=== PATIENT | male | born 1950 | race Caucasian/White ===

== ENCOUNTER 2017-09-12 15:35 | Emergency (ER) | payer OTHER ==
[~2017-09-12] VITALS: Ht 185.4 cm; Wt 152.9 kg
[~2017-09-12 15:35] MED LIST: ALBUTEROL2.5 MG/31 INH; ASPIR 8181 MG PO; BACTRIM DS TAB1 EACH PO; BRILINTA90 MG PO; CHILDREN'S ASPI81 M1 PO; CLONAZEPAM 0.50.5 M1 PO; COREG3.125 MG PO; COREG6.25 MG PO; COUMADIN 4 MG TA4 M1 PO; FLOMAX0.4 MG PO; HYTRIN 2MG CAPSU2 MG PO; IMDUR 30 MG TAB30 M1 PO; LEVEMIR SUBQ; LIPITOR 20 MG T20 M1 PO; LISINOPRIL2.5 MG PO; METFORMIN HCL1000 M1 PO; NITROGLYCERIN0.4 MG SUBLING; NOVOLOG100 UNIT/1 SUBQ; PAXIL10 MG PO; PEPCID20 MG PO; PERCOCET PO; PROAIR HFA8.5 GM INH; SPIRIVA18 MCG INH; SYMBICORT160 MCG/4. INH; TERAZOSIN HCL5 MG PO; VENLAFAXINE H37.5 MG PO; XARELTO15 MG PO
[2017-09-12 16:31] LABS: ABSOLUTE EOSINOPHILS 0.2 thou/uL (0.0-0.7); ABSOLUTE LYMPHOCYTES 0.9 thou/uL (0.8-5.3); ABSOLUTE MONOCYTES 0.5 thou/uL (0.0-1.2); ABSOLUTE NEUTROPHILS 6.8 thou/uL (1.6-8.1); BASOPHILS 0.4 %; EOSINOPHILS 2.4 %; HEMATOCRIT 40.5 % (42.0-52.0); HEMOGLOBIN 13.3 gm/dL (14.0-18.0); LYMPHOCYTES 11.1 %; MCH 28.2 pg (26.0-34.0); MCHC 32.9 g/dL (28.0-37.0); MCV 85.5 fL (80.0-100.0); MONOCYTES 5.6 %; MPV 8.5 fl. (7.2-11.1); NUCLEATED RBCS 0 /100WBC; PLATELET COUNT* 186 thou/uL (150-400); POLYS 80.5 %; RBC 4.73 mil/uL (4.50-6.00); RDW-CV 15.3 % (10.5-14.5); WBC 8.4 thou/uL (4.0-11.0)
[2017-09-12 16:35] LABS: ANION GAP 11 mmol/L (7-16); BUN 15 mg/dL (7-18); CALCIUM 8.6 mg/dL (8.5-10.1); CHLORIDE 104 mmol/L (98-107); CO2 23 mmol/L (21-32); CREATININE 0.9 mg/dL (0.6-1.3); GLUCOSE 141 mg/dL (70-99); POTASSIUM 3.4 mmol/L (3.5-5.1); SODIUM 138 mmol/L (136-145)
[2017-09-12 16:46] LABS: ALBUMIN 3.3 g/dL (3.4-5.0); ALKALINE PHOSPHATASE 77 U/L (46-116); NT-PRO BRAIN NAT PEPTIDE 159 pg/mL (<300); SGOT 29 U/L (15-37); SGPT 37 U/L (30-65); TOTAL BILIRUBIN 0.5 mg/dL (<0.1-1.0); TOTAL PROTEIN 6.7 g/dL (6.4-8.2); TROPONIN-I LEVEL <0.06 ng/mL (<0.06)
[2017-09-12 17:27] VITALS: BP 107/63
--- NOTE | 2017-09-13 12:47 | EKG ---
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 : 1950 Requested By: Alana Lares Order Number: [id number] MD: Peter Rajan Measurements Intervals [place] Rate: 54 P: 32 TX: 208 QRS: 3 QRSD: 122 T: -3 QT: 517 QTc: 490 Interpretive Statements Sinus rhythm Nonspecific intraventricular conduction delay Inferior infarct, old Compared to ECG 01/17/2017 12:56:16 Intraventricular conduction delay now present Myocardial infarct finding now present First degree AV block no longer present Electronically Signed On 09-13-2017 12:46:55 SNAGGER by Peter Rajan [email or web address] <ELECTRONICALLY SIGNED> By: Peter Rajan MD, FACC 09/13/17 1246 1610 1610 Peter Rajan MD, FAC /EPI
== END 2017-09-12 18:49 | disposition home or self-care (01) ==
LOC: M.ERS 15:35
PROVIDERS: Personal Emergency Response Attendant
DX: E11.649 Type 2 diabetes mellitus with hypoglycemia without coma (principal); F10.99 Alcohol use, unspecified with unspecified alcohol-induced disorder; M19.90 Unspecified osteoarthritis, unspecified site; I25.2 Old myocardial infarction; F41.9 Anxiety disorder, unspecified; F32.9 Major depressive disorder, single episode, unspecified; J44.9 Chronic obstructive pulmonary disease, unspecified; Z88.5 Allergy status to narcotic agent; Z96.652 Presence of left artificial knee joint; Z95.5 Presence of coronary angioplasty implant and graft; Z79.4 Long term (current) use of insulin

== ENCOUNTER 2017-12-12 17:31 | Inpatient (IN) | payer OTHER ==
[2017-12-12] VITALS (9 sets, daily range): BP systolic 130–178; BP diastolic 64–95
[~2017-12-12] VITALS: Ht 188 cm; Wt 165.1 kg
--- NOTE | ~2017-12-12 | EKG ---
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
--- NOTE | ~2017-12-12 | EKG ---
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
--- NOTE | 2017-12-12 17:37 | NUR ---
CODE STEMI CALLED BY DR. RING. SEE CODE STEMI PAPER FLOWSHEET.
[2017-12-12 17:48] LABS: HEMATOCRIT 42.9 % (42.0-52.0); HEMOGLOBIN 14.1 gm/dL (14.0-18.0); MCH 28.3 pg (26.0-34.0); MCHC 32.9 g/dL (28.0-37.0); MCV 85.9 fL (80.0-100.0); MPV 8.5 fl. (7.2-11.1); NUCLEATED RBCS 0 /100WBC; PLATELET COUNT* 173 thou/uL (150-400); RBC 4.99 mil/uL (4.50-6.00); RDW-CV 14.6 % (10.5-14.5); WBC 11.7 thou/uL (4.0-11.0)
[2017-12-12 17:57] LABS: ANION GAP 8 mmol/L (7-16); BUN 20 mg/dL (7-18); CHLORIDE 105 mmol/L (98-107); CO2 29 mmol/L (21-32); CREATININE 1.1 mg/dL (0.6-1.3); GLUCOSE 275 mg/dL (70-99); POTASSIUM 4.1 mmol/L (3.5-5.1); SODIUM 142 mmol/L (136-145)
[2017-12-12 17:59] LABS: APTT 24.3 Seconds (25.0-31.3)
[2017-12-12 18:15] LABS: ALBUMIN 3.6 g/dL (3.4-5.0); ALKALINE PHOSPHATASE 86 U/L (46-116); CK-MB MASS 3.9 ng/mL (<0.5-3.6); LIPASE 169 U/L (73-393); MAGNESIUM 1.7 mg/dL (1.8-2.4); NT-PRO BRAIN NAT PEPTIDE 172 pg/mL (<300); SGOT 20 U/L (15-37); SGPT 38 U/L (30-65); TOTAL BILIRUBIN 0.5 mg/dL (<0.1-1.0); TOTAL PROTEIN 7.3 g/dL (6.4-8.2); TROPONIN-I LEVEL <0.06 ng/mL (<0.06)
[2017-12-12 18:19] LABS: ABSOLUTE LYMPHOCYTES 0.9 thou/uL (0.8-5.3); ABSOLUTE MONOCYTES 0.5 thou/uL (0.0-1.2); ABSOLUTE NEUTROPHILS 10.3 thou/uL (1.6-8.1); ATYPICAL LYMPHS 2 %; PLATELET ESTIMATE ADEQUATE
[2017-12-13] VITALS (12 sets, daily range): BP systolic 96–139; BP diastolic 48–79
--- NOTE | 2017-12-13 03:45 | NUR ---
ASSUMED CARE OF PT FROM OCCUPATIONAL THERAPY ASSISTANT OMAIRA FRAUSTO @ 2034, ARRIVED IN BED, PLACED ON OUTCOMES ANALYST. PT A+O*4, LAYING AT 30 DEG. REINFORCED BLEED PRECAUTIONS, TO MAINTAIN BEDREST x 5HRS. PT ON 4L O2 NC, SPO2 = 97%, USES ACCESSORY MUSCLES, WHEEZES AUDIBLE IN ALL LUNG FILEDS. R GROIN SITE ASSESSED, SOFT, SUPPLE, NO BLEED OR HEMATOMA. PER REPORT, PT HAS ANGIOSEAL D/T LEAKAGE DURING PROCEDURE. HEMATURIA NOTED, PT HAS LUCAS ORDERED TO BE D/C'D IN AM. SKIN DIAPHORETIC, PT STATES HE FEELS HOT, FAN PROVIDED, BG = 278, COVERED W/ SSI 12 UNITS. CONT TO MONITOR.
[2017-12-13 07:13] LABS: HEMATOCRIT 39.7 % (42.0-52.0); HEMOGLOBIN 12.9 gm/dL (14.0-18.0); MCH 28.1 pg (26.0-34.0); MCHC 32.5 g/dL (28.0-37.0); MCV 86.4 fL (80.0-100.0); MPV 8.6 fl. (7.2-11.1); RBC 4.6 mil/uL (4.50-6.00); RDW-CV 14.7 % (10.5-14.5); WBC 16.2 thou/uL (4.0-11.0)
[2017-12-13 07:30] LABS: ALBUMIN 3.1 g/dL (3.4-5.0); ALKALINE PHOSPHATASE 61 U/L (46-116); ANION GAP 8 mmol/L (7-16); BUN 17 mg/dL (7-18); CALCIUM 8.7 mg/dL (8.5-10.1); CHLORIDE 104 mmol/L (98-107); CHOLESTEROL 120 mg/dL (<200); CO2 25 mmol/L (21-32); GLUCOSE 336 mg/dL (70-99); HDL CHOLESTEROL 64 mg/dL (>40); LDL CHOLESTEROL 48 mg/dL (<100); POTASSIUM 4.1 mmol/L (3.5-5.1); SGOT 61 U/L (15-37); SGPT 40 U/L (30-65); SODIUM 137 mmol/L (136-145); TC:HDL 1.9 Ratio (Not establshd); TOTAL BILIRUBIN 0.7 mg/dL (<0.1-1.0); TOTAL PROTEIN 6.6 g/dL (6.4-8.2); TRIGLYCERIDE 44 mg/dL (<150); VLDL 9 mg/dL (<40)
[2017-12-13 07:37] LABS: SERUM ASSESSMENT Clear; TROPONIN-I LEVEL 18.71 ng/mL (<0.06)
[2017-12-13] MEDS ORDERED: PLAVIX 75 MG TA75 M1 PO (07:57)
[2017-12-13] MEDS ORDERED: PRINIVIL5 MG PO (07:57)
--- NOTE | 2017-12-13 10:15 | NUR ---
NO C/O CHEST PAIN. VSS. AFEBRILE. PT ON CARB CONTROLLED DIET. PT MADE TELEMETRY STATUS PER CARDIOLOGY. CARDIOLOGY WOULD LIKE TO MONITOR PT 1 MORE DAY HIGH RISK FOR BLEEDING. METFORMIN HELD PT HAD CATH 12/12. INSULIN ADMININSTERED PER SEP. PT SITTING UP I CHAIR EATING BREAKFAST. CATHETER DC'D.
--- NOTE | 2017-12-13 11:19 | EKG ---
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: : 1950 Requested By: Eliceo Burkett Order Number: [id number] Todd MD: Eliceo Burkett Measurements Intervals [place] Rate: 85 P: 25 [place]: 268 QRS: -13 QRSD: 108 T: -12 QT: 377 QTc: 449 Interpretive Statements Sinus rhythm Prolonged [place] interval Lateral infarct, acute (LAD) Baseline wander in lead(s) V2 Compared to ECG 09/12/2017 16:10:41 First degree AV block now present lateral injury now seen Electronically Signed On 12-13-2017 11:19:42 CDT by Eliceo Burkett [email or web address] <ELECTRONICALLY SIGNED> By: Eliceo Burkett MD, [facility] 12/13/17 1119 1736 1736 Eliceo Burkett MD, [facility] /EPI
--- NOTE | 2017-12-13 11:22 | EKG ---
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: [facility] : 1950 Requested By: Obey Veliz Order Number: [id number] MD: Eliceo Burkett Measurements Intervals [place] Rate: 81 P: 13 [place]: 239 QRS: 64 QRSD: 112 T: 52 QT: 409 QTc: 475 Interpretive Statements Sinus rhythm early transition Prolonged [place] interval Abnormal lateral Q waves Baseline wander in lead(s) I,III,aVL,aVF Electronically Signed On 12-13-2017 11:22:37 CDT by Eliceo Burkett [email or web address] <ELECTRONICALLY SIGNED> By: Eliceo Burkett MD, [facility] 12/13/17 1122 2139 Eliceo Burkett MD, [facility] /EPI
--- NOTE | 2017-12-13 11:23 | EKG ---
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
--- NOTE | 2017-12-13 11:35 | EKG ---
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
--- NOTE | 2017-12-13 13:19 | CARD ---
[address] [address] CARDIAC CATH REPORT Name: FAM MILES Room: [address] IN [facility].#: [id number] Admission: 12/12/17 Attend Phys: Fam Ovalles, Discharge: Date of : [birth year] Report #: [id number] THIS REPORT FOR: //name// APPROVED REPORT Study performed: 12/12/2017 18:09:58 Patient Details Patient Status: ED Room #: The patient is a 67 year-old male Event Personnel Eliceo Burkett Doctor Of Medicine, Cheryl Washington RN, Danielle Baumann RN Monitor, Keaton Antoine Scrub Procedures Performed Art Access - R femoral artery* , Left Heart Catheterization, PTCA with Stenting, PTCA with Balloon Angioplasty Indication Abnormal ECG, STEMI , Chest pain Risk Factors Arterial HypertensionObesity, Hypercholesterolemia, Diabetes Previous Procedures/Diagnoses Previous PCI Admission/Lab Medications/Medications given during procedure Platelet Aff. Inhib., Heparin Unfract., Heparin IV 5000 units Procedure Narrative The patient was brought emergently to the Cardiac Catheterization Laboratory and was prepped and draped in a sterile manner. The right femoral was infiltrated with 2% Lidocaine subcutaneous anesthesia. A 6fr Ultimum sheath was inserted into the right femoral artery. Coronary angiography was performed using coronary diagnostic catheters. The right coronary system was accessed and visualized with a JR4 catheter. The left coronary system was accessed and visualized with a JL4 catheter. The left ventricle was accessed and visualized with a angled PIG catheter. Left ventricular/Aortic Valve gradient assessed via catheter pullback. Left ventriculogram was performed in CONN projection. Closure device was deployed with a 6 Fr Angioseal. The patient tolerated the procedure well and there were no [facility] [address] [place] [address] CARDIAC CATH REPORT Name: FAM MILES Room: [address] IN [facility]#: [id number] Admission: 12/12/17 Attend Phys: Fam Ovalles, Discharge: Date of : 48 Report #: [id number] complications associated with the procedure. There was no hematoma. Intraoperative Conscious Sedation Fentanyl 75 mcg Versed 2 mg Fluoro Time: 10 minutes Dose: DAP [id number] cGycm2 3114 mGy Contrast Type and Amount: Visipaque 280 ml Coronary Angiography The patient's coronary anatomy is right dominant. Diagnostic Cath Left Main 0% stenosis LAD stent in mid lad had only 30% restenosis. Apical lad had a 80% stenosis Diagonal 1 small vessel with a 90% proximal stenosis Diagonal 2 medium sized vessel with a 90% proximal stenosis OM2 distal 90% stenosis before bifurcating Right Coronary proximal stent without restenosis, mid stent with 30% restenosis. Distal stent had thrombus and the pda branch that arose from within the stent was occluded 100% RPLV distal branch had a 70% stenosis Left Ventriculography The left ventricular ejection fraction is estimated to be 35-40%. There is no mitral insufficiency. akinesis noted of the entire apex Hemodynamics The aortic pressure is 140/79 mmHg with a mean of 100 mmHg. The left ventricular pressure is 142/10 mmHg with a mean of mmHg. The left ventricular end diastolic pressure is 20 mmHg. There was no gradient across the aortic valve upon pullback. Pullback from the left ventricle to the aorta revealed no gradient across the aortic valve. PCI Technique Lesion Anticoagulation was achieved with Heparin. iv aggrastat given as a bolus Percutaneous coronary intervention was performed on the second obtuse marginal branch segment. The lesion stenosis prior to intervention was 90% with KEN 3 flow. A 6F XB 4.0 Guide Catheter was used to engage the lm ostium. A IG: BMW 190cm Interventional Guidewire was used [place] [address] CARDIAC CATH REPORT Name: FAM MILES Room: [address]#: [id number] Admission: 12/12/17 Attend Phys: Fam Ovalles, Discharge: Date of : 48 Report #: [id number] BALLOON DILATION A Balloon catheter Trek RX 2.5 X 8 was inserted and inflated up to 8.00atm for 14seconds. Repeat angiography revealed the following post-dilatation results: 50% stenosis. Additional Inflation: 10.00atm for 10seconds. STENT DEPLOYMENT A bare metal stent Vision RX 2.75 X 12 was inserted and inflated up to 10.00atm for 10seconds. Repeat angiography revealed the following post-stent deployment results: 0% stenosis. Additional Inflation: 10.00atm for 10seconds. Final angiography reveals 0 % stenosis with KEN 3 flow. PCI Technique Lesion 2 Percutaneous Coronary Intervention was performed on the right posterior descending artery. Percutaneous coronary intervention was performed on the right posterior descending artery. The lesion stenosis prior to intervention was 100% with KEN 0 flow. A 6FR JCR 4 100CM Guide Catheter was used to engage the rca ostium. A IG: BMW 190cm Interventional Guidewire was used to cross the lesion. Balloon Dilation A Balloon catheter Trek RX 2.5 X 8 was inserted and inflated up to 8.00atm for 16seconds. Repeat angiography revealed the following post-dilatation results: 0% stenosis. Additional Inflation: 10.00atm for 21seconds. Additional Inflation: 16atm for 12seconds. Final angiography reveals 0 % stenosis with KEN 3 flow. Comments Stent was not deployed because stenting would require jailing the SARAH brach, and there was a significant difference in size between the distal rca and the pda branch. However, if restenosis occurs, a T-stent could be deployed. Thrombus noted in stent had resolved at end of procedure. Conclusion 1. No restenosis of the stent in the mid lad 2. 90% stenosis of the 2nd marginal branch of the circumflex 3. occluded PDA branch of the rca that arose from within the distal stent in the rca 4. successful placement of single bare metal stent in the 2nd [place] [address] CARDIAC CATH REPORT Name: FAM MILES Room: [address] IN [facility].#: [id number] Admission: 12/12/17 Attend Phys: Fam Ovalles, Discharge: Date of : 48 Report #: [id number] 5. successful ptca the the pda branch of the rca 6. moderate LV systolic dysfunction Recommendations Cardiac Rehabilitation Referral Aggressive Medical Therapy Medications Administered Clopidogrel <ELECTRONICALLY SIGNED> By: Eliceo Burkett MD, FACC 12/13/17 1319 1319 1319Eliceo Burkett MD, FACC /INF
--- NOTE | 2017-12-13 16:21 | NUR ---
PT VOIDING PER URINAL PT'S VOIDED 600. NO CHEST PAIN. MEDICATIONS ADMININSTERED PER SEP. BLOOD SUGAR 450'S IN AFTERNOON. DR NOTIFIED ASKED TO START PT ON SLIDING SCALE HOLDING METFORMIN. RECIEVED ORDER FOR MODERATE DOSE SLIDING SCALE.
[2017-12-14 00:07] VITALS: BP 108/47
--- NOTE | 2017-12-14 02:32 | NUR ---
ASSUMED CARE OF PT FROM TAD CASTANO; PT A+O*4, ON 2L NC, AMBULATING IN ROOM, AX1. NON-PRODUCTIVE COUGH NOTED, WHEEZES IN R AND LEFT UPPER REDDY. PT VOIDS PER URINAL. CONTROLLED AFIB, RATE 73-75 ON THE MONITOR.
[2017-12-14 04:00] VITALS: BP 98/41
--- NOTE | 2017-12-14 05:00 | NUR ---
PT TRANSFERED FROM ICU. 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 SR/1ST DEGREE. PT UP AD RAMONE WITH STEADY GAIT. O2 2L NC. R GROIN CATH SITE C/D/I. CALL LIGHT IN REACH. BED IN LOWEST POSITION. PROGRESSING TOWARDS GOALS.
[2017-12-14 12:00] VITALS: BP 119/68
[2017-12-14] MEDS ORDERED: ALDACTONE25 MG PO (12:22)
--- NOTE | 2017-12-14 13:53 | NUR ---
ORDER RECEIVD TO DISHCARGE PATIENT HOME TO SELF CARE. PAITNET UTILIZING HOME O2 PRIOR TO ADMISSION AND WILL CONTINUE SUPPLEMENTAL O2 AT HOME. MED REC, MEDICATION EDUCATION, STROKE EDUCATION, AND NEED FOR FOLLOW UP APPOINTMENTS COVERED AD STATED UNDERSTOOD BY PATIENT. PATIENT EDUCATED ON NEED TO REFRAIN FROM LIFTING OVER 10 POUBDS FOR 1 WEEK OR UNTIL CLEARED BY CARDIOLOGY UPON FOLLOW UP APPOINTMENT ON DECEMBER 19. IV AND TELEMETRY PACK REMOVED AND PATIENT GIVEN ADEQUATE TIME TO HAVE ALL ANSWERS AND CONCERNS ADRESSED. PATIENT TAKEN TO AWAITNG CAR WITH DAUGHTER PRESENT, PATIET TAKEN VIA WHEELCHAIR. DISCHARGE TIME OF 13:45.
--- NOTE | 2017-12-14 16:18 | CON ---
[address] [address] CONSULTATION Name: FAM MILES Room: [address] IN .R.#: [id number] Admission: 12/12/17 Attend Phys: Fam Ovalles, Discharge: 12/14/17 Date of : [birth year] Report #: [id number] THIS REPORT FOR: //name// CC: Lisa Ovalles DATE OF SERVICE: 12/12/2017 TYPE OF REPORT: Cardiology consultation. HISTORY OF PRESENT ILLNESS: The patient is a 67-year-old single white male who I was asked to see in the Emergency Room after he complained of chest pain. The patient has an extensive past medical history. He is morbidly obese, standing 6 feet 2 inches and weighing 360 pounds. He has a long history of diabetes, hypertension and hyperlipidemia. He had had a previous coronary intervention of the right coronary artery in 2012. It appears this was done at another institution. The patient was treated medically at that time. He then presented in September of [address] Allen placed a drug-eluting stent, had 90% stenosis in the right coronary artery. He presented with a STEMI at that time. The patient was placed on Brilinta. I performed another cardiac catheterization in October 2016 when he presented to the Emergency Room complaining of chest pain. He had stopped taking his aspirin and Plavix for knee surgery. He was having inferior STEMI again. I performed another cardiac catheterization in October 2016 that showed an ejection fraction of 45%. The stent in the proximal right coronary artery had 80% eccentric stenosis and there was an 80% stenosis in the stent in the distal right coronary artery. He had a new drug-eluting stent placed in the proximal and distal right coronary artery. The patient has done well since that time. Recently, he has been short of breath. He has been seen by fish packer at [facility]. Apparently, he had an abnormal CT scan. He was taken off of his aspirin and Plavix. He has been off for several days. Today, he underwent a bronchoscopy apparently at [facility]. It is unclear whether he had a biopsy or not. This evening, the patient again complained of chest pain. He felt diaphoretic. The pain persisted. A friend brought him to the Emergency Room here. He was found to be having a little acute lateral STEMI. Emergent Cardiology consultation was requested. When I arrived, the patient continued to have chest pain. He is not very active because of his large size. He has had no recent syncope or fever. PAST MEDICAL HISTORY: Significant for 2 knee surgeries. He has a long history of diabetes, hypertension and hyperlipidemia. MEDICATIONS: His medications, which he had taken today on admission consisted of metformin, insulin, clonazepam, albuterol nebulizer, Symbicort, Hytrin, carvedilol, aspirin, lisinopril and atorvastatin. ALLERGIES: He has intolerance to [place]INE [place] [address] CONSULTATION Name: FAM MILES Room: [address] IN [facility].#: [id number] Admission: 12/12/17 Attend Phys: Fam Ovalles, Discharge: 12/14/17 Date of : 48 Report #: [id number] FAMILY HISTORY: Significant for heart disease. SOCIAL HISTORY: He has been , lives in [place]. 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 Quit smoking years ago. No alcohol abuse. REVIEW OF SYSTEMS: He denies history of stroke, snoring, liver disease, bleeding, kidney disease, cancer or psychiatric illness. PHYSICAL EXAMINATION: GENERAL: Revealed an obese middle-aged male, appeared in mild distress secondary to pain. VITAL SIGNS: He had a blood pressure 160/80, pulse 80 and his respirations were mildly labored. HEENT: He is anicteric. Conjunctivae pink. Mucous members moist. NECK: Veins are difficult to assess due to obesity. CHEST: Revealed expiratory wheezes. CARDIOVASCULAR: Regular rate and rhythm. ABDOMEN: Obese. EXTREMITIES: Had no pitting edema. Posterior tibial pulse 2+ bilaterally. SKIN: Cool and dry. RADIOLOGICAL DATA: His ECG on admission showed a sinus rhythm; ST-segment elevation of up to 2.5 mm in I and aVL; reciprocal ST-segment depression in II, III and aVF as well as V1, V2 and V3. His workup in the Emergency Room today, he had a portable chest x-ray, which showed cardiomegaly and clear lung piedra. LABORATORY DATA: Lab work today, sodium 142, creatinine 1.1 and glucose 275. Liver function studies were normal. His troponin 0.06. BNP 172. His white blood cell count 11.7 and hemoglobin 14.7. IMPRESSION AND RECOMMENDATIONS: 1. Acute high lateral DK-axxbksb-thpordwfm myocardial infarction. Recommend urgent cardiac catheterization. The patient did stop his aspirin several days ago. 2. Coronary artery disease. The patient has had multiple stents. 3. Cardiomyopathy. The patient has been on a beta nia and angiotensin-converting enzyme inhibitor. I would consider adding Aldactone. 4. Diabetes. 5. Hyperlipidemia. The patient is on a statin drug. 6. Morbid obesity. 7. Abnormal CT scan. The patient apparently had a lung biopsy today. He will be at risk for bleeding. 8. Chronic obstructive pulmonary disease. The patient no longer smokes. [address] [address] CONSULTATION Name: FAM MILES Room: [address] IN M.R.#: [id number] Admission: 12/12/17 Attend Phys: Fam Ovalles, Discharge: 12/14/17 Date of : 48 Report #: [id number] Total time was from 7:15 p.m.-8:30 p.m. <ELECTRONICALLY SIGNED> By: Eliceo Burkett MD, FACC 12/14/17 1618 16 0128Dasherron Burkett MD, FACKerry /nt
== END 2017-12-14 14:02 | disposition home or self-care (01) | DRG 249 ==
LOC: M.ERS 17:31 → M.CL 17:31 → M.ICU 19:53 → M.TBA-ER 19:53 → M.ICU 20:35 → M.2W 12-14 02:13
PROVIDERS: Family Medicine; Internal Medicine Cardiovascular Disease; ADMIT Family Medicine
DX: I21.09 ST elevation (STEMI) myocardial infarction involving other coronary artery of anterior wall (principal); I42.9 Cardiomyopathy, unspecified; Z68.42 Body mass index [BMI] 45.0-49.9, adult; I50.32 Chronic diastolic (congestive) heart failure; E11.9 Type 2 diabetes mellitus without complications; M19.90 Unspecified osteoarthritis, unspecified site; E66.01 Morbid (severe) obesity due to excess calories; E78.00 Pure hypercholesterolemia, unspecified; I25.2 Old myocardial infarction; I10 Essential (primary) hypertension; E78.5 Hyperlipidemia, unspecified; F41.9 Anxiety disorder, unspecified; F32.9 Major depressive disorder, single episode, unspecified; J44.9 Chronic obstructive pulmonary disease, unspecified; I25.10 Atherosclerotic heart disease of native coronary artery without angina pectoris; Z96.652 Presence of left artificial knee joint; Z88.6 Allergy status to analgesic agent; Z79.82 Long term (current) use of aspirin; Z79.4 Long term (current) use of insulin; Z79.899 Other long term (current) drug therapy; Z95.5 Presence of coronary angioplasty implant and graft; Z98.890 Other specified postprocedural states; Z87.891 Personal history of nicotine dependence; Z82.49 Family history of ischemic heart disease and other diseases of the circulatory system

== ENCOUNTER 2017-12-15 12:50 | Inpatient (IN) | payer OTHER ==
[~2017-12-15] VITALS: Ht 188 cm; Wt 162.8 kg
[~2017-12-15 12:50] MED LIST changes: +ALDACTONE25 MG PO; +PLAVIX 75 MG TA75 M1 PO; +PRINIVIL5 MG PO
[2017-12-15 12:51] VITALS: BP 145/91
[2017-12-15 13:10] LABS: ABSOLUTE BASOPHILS 0.1 thou/uL (0.0-0.2); ABSOLUTE EOSINOPHILS 0.1 thou/uL (0.0-0.7); ABSOLUTE MONOCYTES 0.7 thou/uL (0.0-1.2); ABSOLUTE NEUTROPHILS 8.7 thou/uL (1.6-8.1); BASOPHILS 0.6 %; EOSINOPHILS 1.4 %; HEMATOCRIT 38.5 % (42.0-52.0); HEMOGLOBIN 12.8 gm/dL (14.0-18.0); LYMPHOCYTES 9.7 %; MCH 28.7 pg (26.0-34.0); MCHC 33.3 g/dL (28.0-37.0); MCV 86.3 fL (80.0-100.0); MONOCYTES 6.9 %; MPV 8.5 fl. (7.2-11.1); NUCLEATED RBCS 0 /100WBC; PLATELET COUNT* 162 thou/uL (150-400); POLYS 81.4 %; RBC 4.46 mil/uL (4.50-6.00); RDW-CV 14.6 % (10.5-14.5); WBC 10.7 thou/uL (4.0-11.0)
[2017-12-15 13:19] LABS: PROTIME 10.2 Seconds (9.20-11.50)
[2017-12-15 13:25] LABS: CALCIUM 8.7 mg/dL (8.5-10.1); POTASSIUM 3.8 mmol/L (3.5-5.1)
[2017-12-15 13:30] LABS: ALBUMIN 3.1 g/dL (3.4-5.0); TOTAL BILIRUBIN 0.9 mg/dL (<0.1-1.0); TOTAL PROTEIN 6.6 g/dL (6.4-8.2)
[2017-12-15 13:35] LABS: TROPONIN-I LEVEL 3.06 ng/mL (<0.06)
--- NOTE | 2017-12-15 15:30 | EKG ---
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 : 1950 Requested By: Braden Birch Order Number: [id number] MD: Gregory Allen Measurements Intervals [place] Rate: 85 P: 51 RI: 227 QRS: -15 QRSD: 104 T: -28 QT: 376 QTc: 447 Interpretive Statements Sinus rhythm Prolonged [place] interval Inferior infarct, age indeterminate Baseline wander in lead(s) V2,V4,V6 Compared to ECG 12/13/2017 07:57:51 No significant changes Electronically Signed On 12-15-2017 15:29:52 CDT by Gregory Allen [email or web address] <ELECTRONICALLY SIGNED> By: Gregory Allen MD, [facility] 12/15/17 1529 1254 1254 Gregory Allen MD, [facility] /EPI
[2017-12-15 17:02] VITALS: BP 105/59
[2017-12-15 17:20] VITALS: BP 130/73
--- NOTE | 2017-12-15 18:17 | 2DMMODE ---
[place] [address] 2 D/M-MODE ECHOCARDIOGRAM Name: CINTHYA MILES Room: [address] IN [facility]#: [id number] Admission: 12/15/17 Attend Phys: Keaton Benson, Discharge: Date of : 48 Date of Service: 12/15/17 1817 Report #: [id number] THIS REPORT FOR: //name// APPROVED REPORT Study performed: 12/15/2017 16:24:50 EXAM: Comprehensive 2D, Doppler, and color-flow Echocardiogram Patient Location: In-Patient Room #: er Status: routine BSA: 2.79 HR: 76 bpm BP: 106/52 mmHg Rhythm: NSR Other Information Study Quality: Good Indications Chest Pain Post [place] Echo Enhancing Agent Indication: Endocardial border delineation Agent(s) / Amount(s) Used: Optison 3 cc 2D Dimensions LVEF(%): 63.76 (>50%) IVSd: 12.53 (7-11mm) LVOT Diam: 24.91 (18-24mm) LVDd: 59.18 mm PWd: 10.88 (7-11mm) Ascending Ao: 35.40 (22-36mm) LVDs: 38.32 (25-40mm) Aortic Root: 37.57 mm Fletcher's LVEF: 63.76 % Volumes Left Atrial Volume (Systole) LA ESV Index: 36.60 mL/m2 Aortic Valve AoV Peak Nigel.: 1.67 m/s AO Peak Gr.: 11.22 mmHg LVOT Max P.00 mmHg AO Mean Gr.: 6.60 mmHg LVOT Mean P.02 mmHg LVOT Max V: 1.12 m/[place] [address] 2 D/M-MODE ECHOCARDIOGRAM Name: CINTHYA MILES Room: [address] IN M.R.#: [id number] Admission: 12/15/17 Attend Phys: Keaton Benson, Discharge: Date of : 48 Date of Service: 12/15/17 1817 Report #: [id number] AO V2 VTI: 31.27 cm LVOT Mean V: 0.82 m/s SRIKANTH (VTI): 3.35 cm2 LVOT V1 VTI: 21.53 cm Mitral Valve E/A Ratio: 0.93 MV Decel. Time: 273.50 ms MV E Max Nigel.: 0.65 m/s MV PHT: 79.31 ms MVA (PHT): 2.77 cm2 TDI E/Lateral E': 5.00 E/Medial E': 5.00 Medial E' Nigel.: 0.13 m/s Lateral E' Nigel.: 0.13 m/s Pulmonary Valve PV Peak Nigel.: 1.29 m/s PV Peak Gr.: 6.68 mmHg Tricuspid Valve TR Peak Gr.: 26.86 mmHg RVSP: 31.00 mmHg Left Ventricle The left ventricle is normal size. There is normal LV segmental wall motion. There is normal left ventricular wall thickness. Left ventricular systolic function is normal. LVEF is 60-65%. The left ventricular diastolic function is normal. Right Ventricle The right ventricle is normal size. The right ventricular systolic function is normal. Atria Left atrium is mildly dilated. The right atrium size is normal. Aortic Valve The aortic valve is normal in structure. No aortic regurgitation is present. There is no aortic valvular stenosis. Mitral Valve The mitral valve is normal in structure. Trace mitral regurgitation. No evidence of mitral valve stenosis. Tricuspid Valve The tricuspid valve is normal in structure. Mild tricuspid regurgitation. The RVSP is 30-[place] [address] 2 D/M-MODE ECHOCARDIOGRAM Name: CINTHYA MILES Room: [address] IN ..#: [id number] Admission: 12/15/17 Attend Phys: Keaton Benson, Discharge: Date of : 48 Date of Service: 12/15/17 1817 Report #: [id number] Pulmonic Valve The pulmonary valve is normal in structure. There is no pulmonic valvular regurgitation. Great Vessels The aortic root is normal in size. IVC is normal in size and collapses with >50% inspiration Pericardium There is no pericardial effusion. <Conclusion> The left ventricle is normal size. There is normal left ventricular wall thickness. Left ventricular systolic function is normal. LVEF is 60-65%. The left ventricular diastolic function is normal. Left atrium is mildly dilated. Trace mitral regurgitation. Mild tricuspid regurgitation. The RVSP is 30-35 mmHg. There is no pericardial effusion. <ELECTRONICALLY SIGNED> By: Peter Rajan MD, FACC 12/15/171816 16 16 Peter Rajan MD, FACC /INF
[2017-12-15 19:45] VITALS: BP 118/66
[2017-12-16] VITALS: BP 138/78
[2017-12-16 05:51] LABS: HEMATOCRIT 39.2 % (42.0-52.0); HEMOGLOBIN 12.9 gm/dL (14.0-18.0); MCHC 32.9 g/dL (28.0-37.0); MCV 84.9 fL (80.0-100.0); MPV 8.7 fl. (7.2-11.1); RBC 4.61 mil/uL (4.50-6.00); RDW-CV 14.4 % (10.5-14.5); WBC 9.4 thou/uL (4.0-11.0)
[2017-12-16 06:11] LABS: CALCIUM 8.8 mg/dL (8.5-10.1); MAGNESIUM 2.2 mg/dL (1.8-2.4); TOTAL BILIRUBIN 0.8 mg/dL (<0.1-1.0); TOTAL PROTEIN 6.2 g/dL (6.4-8.2)
[2017-12-16 06:17] LABS: POTASSIUM 4.8 mmol/L (3.5-5.1)
[2017-12-16 08:12] VITALS: BP 140/85
[2017-12-16 11:30] VITALS: BP 140/82
--- NOTE | 2017-12-16 13:56 | EKG ---
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[place] : 1950 Requested By: Braden Birch Order Number: [id number] MD: Gregory Allen Measurements Intervals Lane Rate: 78 P: 45 WY: 213 QRS: -26 QRSD: 107 T: -27 QT: 408 QTc: 465 Interpretive Statements Sinus rhythm Ventricular premature complex Borderline prolonged [place] interval Inferior infarct, age indeterminate Compared to ECG 12/15/2017 12:54:06 Ventricular premature complex(es) now present Myocardial infarct finding still present Electronically Signed On 12-16-2017 13:56:07 CDT by Gregory Allen [email or web address] <ELECTRONICALLY SIGNED> By: Gregory Allen MD, [facility] 12/16/17 1356 1534 1534 Gregory Allen MD, [facility] /EPI
--- NOTE | 2017-12-16 17:07 | CON ---
[address] [address] CONSULTATION Name: JDCINTHYA Hallie Room: [address] IN .R.#: [id number] Admission: 12/15/17 Attend Phys: Keaton Benson MD Discharge: Date of : 48 Report #: [id number] THIS REPORT FOR: //name// CC: Estelle Rajan TYPE OF REPORT: Cardiology consultation. INDICATION: Chest pain. HISTORY OF PRESENT ILLNESS: The patient is a 67-year-old gentleman who was just hospitalized last Friday with ST-elevation myocardial infarction. At that time, he is found to have thrombus formation and a stent to the right coronary artery for which he underwent intervention. In this setting, he also had intervention with stent placement to the [id number] circumflex/obtuse marginal system. The patient was discharged uneventfully over the weekend. He returns with chest discomfort that is not quite the same as the pain he had with his acute PA. There is similar location and it does radiate down the left arm but has been continuous and not associated with exertion. The patient has a troponin of 3.0 at this point in time. Peak troponin during hospitalization was approximately . He is without other cardiac complaint at this time. PAST MEDICAL HISTORY: 1. Coronary artery disease. 2. COPD. 3. Diabetes. 4. Hypertension. 5. Hyperlipidemia. 6. Ischemic cardiomyopathy. 7. Coronary stenting with percutaneous coronary intervention x 3. PAST SURGICAL HISTORY: 1. Carpal tunnel release. 2. Total knee arthroplasty. ALLERGIES: CODEINE and MORPHINE. HOME MEDICATIONS: AccuNeb q. 6 hours p.r.n., ProAir 2 puffs as directed, aspirin 81 mg daily, atorvastatin 40 mg at bedtime, Symbicort 160/4.5 b.i.d., carvedilol 6.25 b.i.d., clonazepam 0.5 mg b.i.d., Plavix 75 mg daily, NovoLog 24 units subcutaneously with dinner, Levemir 75 units subcutaneously at bedtime, lisinopril 5 mg daily, metformin 1000 mg b.i.d., Nitrostat p.r.n., Aldactone 25 mg daily, terazosin 5 mg b.i.d., Spiriva HandiHaler 1 capsule daily and Effexor 37.[place] [address] CONSULTATION Name: CINTHYA MILES Room: [address]#: [id number] Admission: 12/15/17 Attend Phys: Keaton Benson MD Discharge: Date of : 48 Report #: [id number] SOCIAL HISTORY: The patient quit smoking remotely. He does not drink alcohol. FAMILY HISTORY: Noncontributory. REVIEW OF SYSTEMS: As per HPI. PHYSICAL EXAMINATION: VITAL SIGNS: Blood pressure 106/52 and pulse 73 and regular. GENERAL: This is a morbidly obese white male, in no distress. Mood and affect appropriate. HEENT: The patient is wearing glasses. Extraocular muscles intact. Mucous membranes are moist. NECK: Shows a thick neck without obvious jugular venous distention. CHEST: Reveals diminished breath sounds with expiratory wheezes throughout. CARDIAC: Reveals a distant S1 and S2. I do not appreciate gallop, murmur or rub. ABDOMEN: Reveals normal bowel sounds. EXTREMITIES: Show 1+ ankles to mid tibial edema bilaterally. RADIOLOGICAL DATA: Chest x-ray shows left basilar infiltrate. LABORATORY DATA: CMP is significant only for a glucose of 197. Troponin currently 3.06. White blood cell count 10.7, hemoglobin 12.8 and platelet count 162,000. IMPRESSION AND RECOMMENDATIONS: 1. Chest discomfort, somewhat different from the pain he had several days ago with his ST-elevation myocardial infarction. This could be Crystal syndrome. I recommend the echocardiogram at this time for further evaluation. 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 His EKG shows sinus rhythm with some nonspecific T-wave inversion, but no ST-segment changes. 2. Recent ST-elevation myocardial infarction. Continue dual antiplatelet therapy. 3. Hypertension. Blood pressure adequately controlled. 4. Hyperlipidemia. Continue atorvastatin 40 mg daily. 5. Type 2 diabetes mellitus per primary physician. 6. Chronic obstructive pulmonary disease exacerbation per primary physician. 7. Post-myocardial infarction pain. We will obtain echocardiogram to further evaluate. <ELECTRONICALLY SIGNED> By: Peter Rajan MD, FACC 12/16/17 1707 1633 0023Peter Rajan MD, FACC /nt
[2017-12-16 17:24] VITALS: BP 133/79
[2017-12-16 19:30] VITALS: BP 119/74
[2017-12-17] VITALS: BP 114/69
[2017-12-17 04:00] VITALS: BP 120/63
[2017-12-17 05:32] LABS: HEMATOCRIT 37.4 % (42.0-52.0); HEMOGLOBIN 12.4 gm/dL (14.0-18.0); MCH 28.1 pg (26.0-34.0); MCHC 33.2 g/dL (28.0-37.0); MCV 84.5 fL (80.0-100.0); MPV 9.1 fl. (7.2-11.1); RBC 4.43 mil/uL (4.50-6.00); RDW-CV 14.2 % (10.5-14.5); WBC 13.2 thou/uL (4.0-11.0)
[2017-12-17 06:08] LABS: CALCIUM 8.9 mg/dL (8.5-10.1); MAGNESIUM 2.4 mg/dL (1.8-2.4); POTASSIUM 4.6 mmol/L (3.5-5.1)
[2017-12-17 08:10] VITALS: BP 133/78
[2017-12-17 12:03] VITALS: BP 146/84
[2017-12-17 16:06] VITALS: BP 137/66
[2017-12-17 20:00] VITALS: BP 132/70
[2017-12-18] VITALS (7 sets, daily range): BP systolic 139–145; BP diastolic 75–89
[2017-12-18] MEDS ORDERED: AZITHROMYCIN 2250 MG PO (08:36)
[2017-12-18] MEDS ORDERED: PREDNISONE 10 M10 M1 PO (08:36)
[2017-12-18] MEDS ORDERED: CEFDINIR300 MG PO (08:36)
[2017-12-18] MEDS ORDERED: CHEST CONGESTI400 MG PO (08:36)
--- NOTE | 2017-12-18 10:54 | CON ---
[address] [address] CONSULTATION Name: CINTHYA MILES Room: [address] IN .R.#: [id number] Admission: 12/15/17 Attend Phys: Keaton Benson MD Discharge: Date of : 48 Report #: [id number] THIS REPORT FOR: //name// CC: Estelle Rajan DATE OF SERVICE: 12/17/2017 REQUESTING PHYSICIAN: Keaton Benson MD REASON FOR CONSULTATION: COPD exacerbation, abnormal CAT scan. DISCUSSION: The patient is a 67-year-old man with a history of underlying coronary artery disease and COPD. He is a former smoker, quitting greater than 20 years ago. He was admitted after presenting to the Emergency Department several days ago. He was having chest pain and shortness of breath. He had just been in the hospital here on 12/12/2017 for a STEMI and underwent cardiac catheterization and had stent placement done. He was then discharged on 12/14/2017. Then, readmitted on 12/15/2017. X-ray was unremarkable other than showing cardiomegaly with some infiltrate in the left base. He had a CT scan done without contrast. This confirmed nodular densities seen primarily in the left lower lung field. History is remarkable that he underwent a bronchoscopy on 12/12/2017 at [facility]. He has been evaluated by the Pulmonary Service there. He notes he has had several CT scans done. It does not sound like he has had a PET scan. Apparently I was concerned he could have cancer. He did undergo bronchoscopy as noted. He is quite upset that he has not heard any results from that, but I do note that was done on 12/12/2017. Unknown if he had a regular bronchoscopy or perhaps a navigational bronchoscopy. The evening of 12/12/2017, he did present to the ED here then with the chest pain and the STEMI. Had the stent placed as noted. He already has a history of coronary artery disease and has had stents placed in the past. He is not steroid dependent for his COPD. He does have O2 at home. He sleeps with that and uses it "p.r.n" during the day. He has a nebulizer at home as well as an albuterol inhaler, which he does on an as needed basis. He does Spiriva daily and he also has Symbicort. He has had recurrent episodes of pneumonia in the past. Some of them have put him in the hospital previously. He has also had bronchitis. He denies ever having a sleep study done, but notes his physicians [place] [address] CONSULTATION Name: CINTHYA MILES Room: [address] IN M.R.#: [id number] Admission: 12/15/17 Attend Phys: Keaton Benson MD Discharge: Date of : 48 Report #: [id number] past, but no study has been done. PAST MEDICAL HISTORY: Remarkable for coronary artery disease. He has had other interventions in the past dating back at least 4-5 years. He has history of morbid obesity, has had prior episodes of pneumonia, history of diabetes. PAST SURGICAL HISTORY: He has had knee surgeries, carpal tunnel repair. HOME MEDICATIONS: At the time he was admitted here were Plavix, Prinivil, Coreg, aspirin, metformin, insulin, Lipitor, venlafaxine, clonazepam, p.r.n. nitroglycerin, Spiriva, Symbicort and albuterol, terazosin, spironolactone. SOCIAL HISTORY: He notes he is a . He is retired. FAMILY HISTORY: Positive for heart disease. REVIEW OF SYSTEMS: ROS was done. Note positives above. Denies having any hemoptysis. Chest pain he had when he came in is now resolved. Denies any difficulty swallowing. Unknown if he snores. Does not always feel rested in the morning when he gets up. Occasionally, he has had some mild lower extremity edema. No recent fevers, chills or sweats. PHYSICAL EXAMINATION: GENERAL APPEARANCE: Morbidly obese man. Sitting up over the edge of the bed. He is eating his lunch. He is alert, cooperative. He is in no acute distress. Able to speak in full sentences. HEENT: Head is normocephalic. Sclerae are nonicteric. Mucous membranes are moist. NECK: Large, supple, without adenopathy. HEART: Tones are little distant, but are regular. No S3 is appreciated. LUNGS: Show breath sounds to be mildly diminished. He has prolonged expiratory phase. Expiratory wheezes are heard. No dullness to percussion. No E to A changes. No pleural rubs. ABDOMEN: Obese, but soft. EXTREMITIES: He has no clubbing. Lower extremities do reveal some trace pretibial edema. SKIN: Warm and dry. NEUROLOGIC: He is alert and oriented x 3. LABORATORY AND X-RAY FINDINGS: CT chest was reviewed. He did have scans done of his abdomen last year, so he can do comparison of the bases. He does have some infiltrate with nodular changes seen, left lower lobe up to 2 cm. No pleural effusions. Some of the nodules are pleural based. Echocardiogram done this admission revealed a normal LV with EF of 60-65%. RV was normal. Troponins on admission were elevated. His BUN and creatinine are normal. [place] [address] [place] [address] CONSULTATION Name: CINTHYA MILES Hallie Room: [address] IN [facility].#: [id number] Admission: 12/15/17 Attend Phys: Keaton Benson MD Discharge: Date of : 48 Report #: [id number] blood cell count this morning 13,200, hemoglobin 12.4, hematocrit 37.4. IMPRESSION: 1. Chronic obstructive pulmonary disease exacerbation. He is actively bronchospastic. Nodular infiltrate, left lower lobe. He is already being evaluated at [facility] for this. He had bronchoscopy done 12/12/2017. Results unknown. Also not clear exactly what testing he may have had there. 2. Morbid obesity, may have unrecognized sleep apnea, 3. Coronary artery disease. Recent ST elevation myocardial infarction with stent placement on 12/12/2017. He is now on dual antiplatelet therapy. 4. Diabetes mellitus, blood sugars elevated due to steroid use. RECOMMENDATIONS: 1. Continue with the bronchodilator regimens. Have adjusted them to also match what he does at home. 2. Continue IV steroids. 3. Records have been requested from [place] for review. However, I do not think would record changer tester doing at this time. If the bronchoscopy was nondiagnostic, given the fact he has had a recent myocardial infarction and stent placed, probably would not be safe to come off his anticoagulation therapy for repeat testing. 4. Consider sleep study in the future. <ELECTRONICALLY SIGNED> By: Deyanira Uriostegui MD 12/18/17 1054 1409 2230Juliana Rincon MD /nt
[2017-12-18] MEDS ORDERED: ALDACTONE50 MG PO (12:57)
== END 2017-12-18 15:15 | disposition home or self-care (01) | DRG 190 ==
LOC: M.ERS 12:50 → M.TBA-ER 16:00 → M.2W 16:00
PROVIDERS: Emergency Medicine; ADMIT Internal Medicine
DX: J44.1 Chronic obstructive pulmonary disease with (acute) exacerbation (principal); J15.9 Unspecified bacterial pneumonia; I50.42 Chronic combined systolic (congestive) and diastolic (congestive) heart failure; Z68.42 Body mass index [BMI] 45.0-49.9, adult; J44.0 Chronic obstructive pulmonary disease with (acute) lower respiratory infection; E11.9 Type 2 diabetes mellitus without complications; F32.9 Major depressive disorder, single episode, unspecified; E66.01 Morbid (severe) obesity due to excess calories; T38.0X5A Adverse effect of glucocorticoids and synthetic analogues, initial encounter; F41.9 Anxiety disorder, unspecified; E78.5 Hyperlipidemia, unspecified; I25.10 Atherosclerotic heart disease of native coronary artery without angina pectoris; I11.0 Hypertensive heart disease with heart failure; I25.5 Ischemic cardiomyopathy; Z96.652 Presence of left artificial knee joint; K21.9 Gastro-esophageal reflux disease without esophagitis; R91.1 Solitary pulmonary nodule; Z79.84 Long term (current) use of oral hypoglycemic drugs; Z79.4 Long term (current) use of insulin; Z79.899 Other long term (current) drug therapy; Z88.5 Allergy status to narcotic agent; Z95.5 Presence of coronary angioplasty implant and graft; Z82.49 Family history of ischemic heart disease and other diseases of the circulatory system; Z87.891 Personal history of nicotine dependence; Y92.89 Other specified places as the place of occurrence of the external cause

== ENCOUNTER 2018-04-02 12:34 | Emergency (ER) | payer OTHER ==
[~2018-04-02] VITALS: Ht 188 cm; Wt 161.0 kg
[~2018-04-02 12:34] MED LIST changes: +ALDACTONE50 MG PO; +AZITHROMYCIN 2250 MG PO; +CEFDINIR300 MG PO; +CHEST CONGESTI400 MG PO; +PREDNISONE 10 M10 M1 PO
[2018-04-02 13:11] LABS: ABSOLUTE BASOPHILS 0.1 thou/uL (0.0-0.2); ABSOLUTE EOSINOPHILS 0.4 thou/uL (0.0-0.7); ABSOLUTE LYMPHOCYTES 1.2 thou/uL (0.8-5.3); ABSOLUTE MONOCYTES 0.4 thou/uL (0.0-1.2); ABSOLUTE NEUTROPHILS 4.7 thou/uL (1.6-8.1); EOSINOPHILS 6.1 %; HEMATOCRIT 39.2 % (42.0-52.0); HEMOGLOBIN 13.1 gm/dL (14.0-18.0); LYMPHOCYTES 17.7 %; MCHC 33.5 g/dL (28.0-37.0); MCV 86.7 fL (80.0-100.0); MONOCYTES 6.5 %; MPV 8.5 fl. (7.2-11.1); NUCLEATED RBCS 0 /100WBC; PLATELET COUNT* 167 thou/uL (150-400); POLYS 68.7 %; RBC 4.52 mil/uL (4.50-6.00); RDW-CV 15.6 % (10.5-14.5); WBC 6.9 thou/uL (4.0-11.0)
[2018-04-02 13:20] LABS: ANION GAP 7 mmol/L (7-16); BUN 15 mg/dL (7-18); CALCIUM 8.8 mg/dL (8.5-10.1); CHLORIDE 106 mmol/L (98-107); CO2 23 mmol/L (21-32); GLUCOSE 230 mg/dL (70-99); POTASSIUM 4.3 mmol/L (3.5-5.1); SODIUM 136 mmol/L (136-145)
[2018-04-02 13:31] LABS: ALBUMIN 3.2 g/dL (3.4-5.0); ALKALINE PHOSPHATASE 98 U/L (46-116); NT-PRO BRAIN NAT PEPTIDE 220 pg/mL (<300); SGOT 22 U/L (15-37); SGPT 34 U/L (30-65); TOTAL BILIRUBIN 0.4 mg/dL (<0.1-1.0); TOTAL PROTEIN 6.3 g/dL (6.4-8.2); TROPONIN-I LEVEL <0.06 ng/mL (<0.06)
[2018-04-02] MEDS ORDERED: PREDNISONE50 MG PO (14:45)
[2018-04-02] MEDS ORDERED: NORCO 5-325 TA1 EACH PO (14:45)
[2018-04-02 15:06] VITALS: BP 107/66
--- NOTE | 2018-04-02 16:50 | EKG ---
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 : 1950 Requested By: Federico Arredondo Order Number: [id number] MD: Gregory Allen Measurements Intervals [place] Rate: 73 P: 47 [place]: 229 QRS: -28 QRSD: 112 T: 4 QT: 416 QTc: 459 Interpretive Statements Sinus rhythm Paired ventricular premature complexes Prolonged [place] interval Inferior infarct, old Lateral leads are also involved Compared to ECG 12/15/2017 15:34:03 No significant changes Electronically Signed On 04-02-2018 16:49:45 CDT by Gregory Allen [email or web address] <ELECTRONICALLY SIGNED> By: Gregory Allen MD, [facility] 04/02/18 1649 1241 1241 Gregory Allen MD, [facility] /EPI
== END 2018-04-02 15:08 | disposition home or self-care (01) ==
LOC: M.ERS 12:34
PROVIDERS: Emergency Medicine Emergency Medical Services
DX: J44.1 Chronic obstructive pulmonary disease with (acute) exacerbation (principal); M25.562 Pain in left knee; E11.9 Type 2 diabetes mellitus without complications; F41.9 Anxiety disorder, unspecified; F32.9 Major depressive disorder, single episode, unspecified; E66.01 Morbid (severe) obesity due to excess calories; Z68.42 Body mass index [BMI] 45.0-49.9, adult; Z87.01 Personal history of pneumonia (recurrent); I25.2 Old myocardial infarction; M19.90 Unspecified osteoarthritis, unspecified site; Z95.5 Presence of coronary angioplasty implant and graft; Z96.652 Presence of left artificial knee joint; Z88.5 Allergy status to narcotic agent; Z87.891 Personal history of nicotine dependence; W19.XXXA Unspecified fall, initial encounter; Y93.89 Activity, other specified; Y92.89 Other specified places as the place of occurrence of the external cause; Y99.8 Other external cause status

== ENCOUNTER 2018-04-14 13:21 | Inpatient (IN) | payer OTHER ==
[~2018-04-14] VITALS: Ht 188 cm; Wt 161.5 kg
--- NOTE | ~2018-04-14 | EKG ---
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
--- NOTE | ~2018-04-14 | EKG ---
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
[~2018-04-14 13:21] MED LIST changes: +NORCO 5-325 TA1 EACH PO; +PREDNISONE50 MG PO
[2018-04-14 13:24] VITALS: BP 106/66
[2018-04-14] MEDS ORDERED: NORCO 5-325 TA1 EACH PO (13:30)
[2018-04-14 13:47] LABS: ABSOLUTE BASOPHILS 0.1 thou/uL (0.0-0.2); ABSOLUTE EOSINOPHILS 0.2 thou/uL (0.0-0.7); ABSOLUTE MONOCYTES 0.5 thou/uL (0.0-1.2); ABSOLUTE NEUTROPHILS 7.1 thou/uL (1.6-8.1); BASOPHILS 0.6 %; EOSINOPHILS 2.7 %; HEMATOCRIT 42.3 % (42.0-52.0); HEMOGLOBIN 14.1 gm/dL (14.0-18.0); LYMPHOCYTES 11.3 %; MCHC 33.3 g/dL (28.0-37.0); MCV 87.2 fL (80.0-100.0); MONOCYTES 5.5 %; MPV 8.2 fl. (7.2-11.1); NUCLEATED RBCS 0 /100WBC; PLATELET COUNT* 167 thou/uL (150-400); POLYS 79.9 %; RBC 4.85 mil/uL (4.50-6.00); RDW-CV 15.1 % (10.5-14.5); WBC 8.9 thou/uL (4.0-11.0)
[2018-04-14 13:52] LABS: BE -3.1 mmol/L (-2 to +3); HCO3 21.9 mmol/L (22.0-26.0); PCO2 38.9 mmHg (35.0-45.0); PO2 92.3 mmHg (75.0-100.0); pH 7.368 (7.340-7.450)
[2018-04-14 13:58] LABS: ANION GAP 4 mmol/L (7-16); BUN 16 mg/dL (7-18); CHLORIDE 105 mmol/L (98-107); CO2 28 mmol/L (21-32); CREATININE 1.1 mg/dL (0.6-1.3); GLUCOSE 235 mg/dL (70-99); POTASSIUM 4.3 mmol/L (3.5-5.1); SODIUM 137 mmol/L (136-145)
[2018-04-14 13:59] LABS: APTT 24.3 Seconds (25.0-31.3); PROTIME 10.2 Seconds (9.20-11.50)
[2018-04-14 14:16] LABS: ALBUMIN 3.4 g/dL (3.4-5.0); ALKALINE PHOSPHATASE 80 U/L (46-116); CK-MB MASS 3.4 ng/mL (<0.5-3.6); LIPASE 149 U/L (73-393); MAGNESIUM 1.4 mg/dL (1.8-2.4); NT-PRO BRAIN NAT PEPTIDE 204 pg/mL (<300); SGOT 22 U/L (15-37); SGPT 37 U/L (30-65); TOTAL BILIRUBIN 0.6 mg/dL (<0.1-1.0); TOTAL PROTEIN 6.7 g/dL (6.4-8.2); TROPONIN-I LEVEL <0.06 ng/mL (<0.06)
--- NOTE | 2018-04-14 16:13 | NUR ---
PT AMBULATING TO AND FROM BATHROOM WITH SLOW BUT STEADY GAIT.
[2018-04-14 17:06] VITALS: BP 100/61
[2018-04-14 17:15] VITALS: BP 115/66
--- NOTE | 2018-04-14 17:35 | NUR ---
RECEIVED REPORT. PT TRANSFERRED TO ROOM 200 VIA CART. VSS. CARDIAC MONTIORING IN PLACE SR. ADMISSION HISTORY AND ASSESSMENT COMPLETED CHARTED. PT ALERT AND ORIENTED. PT SOA WITH EXERTION. PT ON 2L PER NC WITH O2 SAT AT 96% IV SALINE LOCKED AT THIS TIME. PT REPORTS DULL CHEST PAIN. CARDIOLOGY CONSULT IN PLACE AND PT SEEN BY DR. BURROWS. PT ORIENTED TO ROOM AND CALL LIGHT. PT INFORMED OF PLAN OF CARE. FALL RISK FORM SIGNED. CALL LIGHT IS WITHIN REACH. WILL CONTINUE TO MONTIOR FOR DURTION OF SHIFT.
[2018-04-14 20:00] VITALS: BP 109/58
[2018-04-15] VITALS (8 sets, daily range): BP systolic 94–114; BP diastolic 50–91
[2018-04-15 02:52] LABS: ANION GAP 10 mmol/L (7-16); BUN 22 mg/dL (7-18); CALCIUM 9.2 mg/dL (8.5-10.1); CHLORIDE 103 mmol/L (98-107); CHOLESTEROL 130 mg/dL (<200); CO2 26 mmol/L (21-32); CREATININE 1.2 mg/dL (0.6-1.3); GLUCOSE 266 mg/dL (70-99); HDL CHOLESTEROL 48 mg/dL (>40); LDL CHOLESTEROL 58 mg/dL (<100); MAGNESIUM 1.6 mg/dL (1.8-2.4); POTASSIUM 4.5 mmol/L (3.5-5.1); SERUM ASSESSMENT Clear; SODIUM 139 mmol/L (136-145); TC:HDL 2.7 Ratio (Not establshd); TRIGLYCERIDE 124 mg/dL (<150); VLDL 25 mg/dL (<40)
--- NOTE | 2018-04-15 04:17 | NUR ---
ASSUMED CARE OF PT AFTER REPORT AT 1930. PT A&OX4. VSS. PHYSICAL ASSESSMENT COMPLETED AND CHARTED. PT ON O2 AT 2L WITH 99% O2 SAT. PT TRACING SR WITH PVCS ON TELE. PT SHOULD BE IN STANDBY ASSIST DUE TO HISTORY OF FALL 3WEEKS AGO BUT PT REFUSED TO BE ASSISTED TO TOILET AND REFUSED TO TURN THE BED ALARM ON EVEN AFTER EDUCATION WAS DONE.PT BECAME AGITATED FOR A WHILE DUE TO BED ALARM ISSUE BUT BECAME CALM AND PLEASANT ONCE BED ALARM WAS TURNED OFF.PT C/O OF DULL CHEST PAIN WITH PAIN SCALE OF 6/10-PAIN MEDS GIVEN PER MAR WITH COMPLETE RELIEF.PT WITH ONGOING HEPARIN DRIP-TITRATED ACCORDINGLY. MAGNESIUM 1.4.MAGNESIUM TAB GIVEN PER ELECTROLYTE PROTOCOL. INSTRUCTED ON NPO FOR POSSIBLE STRESS TEST OR CARDIAC CATH. COMMUNICATES UNDERSTANDING.CALL LIGHT WITHIN REACH. BED IN LOW POSITION.
--- NOTE | 2018-04-15 09:11 | CON ---
[address] [address] CONSULTATION Name: CINTHYA MILES Room: [address] IN .R.#: [id number] Admission: 04/14/18 Attend Phys: Keaton Benson MD Discharge: Date of : 48 Report #: [id number] THIS REPORT FOR: //name// CC: Estelle Benson DATE OF SERVICE: 04/14/2018 INDICATION: Chest pain. HISTORY OF PRESENT ILLNESS: The patient is a very pleasant 67-year-old gentleman who is well known to myself. He has coronary artery disease with an ischemic cardiomyopathy. He has had multiple interventions in the past as recently as December of this year. At that time, he had percutaneous coronary intervention to the mid third obtuse marginal system as well as the distal right coronary artery. The patient remained relatively symptom free for some time. This morning, he had prolonged midsternal chest discomfort that persisted on into the Emergency Room. His initial electrocardiogram did not show any acute ST or T-wave abnormalities. His initial troponin is less than 0.06. He denies orthopnea or paroxysmal nocturnal dyspnea. He is without other cardiac complaint at this time. PAST MEDICAL HISTORY: 1. Coronary artery disease. 2. Chronic obstructive pulmonary disease. 3. Type 2 diabetes mellitus. 4. Hypertension. 5. Hyperlipidemia. 6. Ischemic cardiomyopathy. 7. Previous coronary intervention. PAST SURGICAL HISTORY: 1. Carpal tunnel release. 2. Total knee arthroplasty. ALLERGIES: CODEINE AND MORPHINE. CURRENT REPORTED MEDICATIONS: AccuNeb inhaler q. 6 hours p.r.n., ProAir inhaler 2 puffs as directed, aspirin 81 mg daily, Lipitor 40 mg at bedtime, Symbicort 160/4.5 one puff b.i.d., carvedilol 6.25 mg b.i.d., Plavix 75 mg daily, guaifenesin 400 mg q. 4 hours p.r.n., [place] 5/325 one to two tablets q. 6h. p.r.n., Levemir insulin 40 units q.a.m. and at bedtime, lisinopril 5 mg daily, Nitrostat p.r.n., prednisone 50 mg daily, Aldactone 25 mg daily, terazosin 5 mg b.i.d., [place] [address] CONSULTATION Name: CINTHYA MILES Hallie Room: [address]#: [id number] Admission: 04/14/18 Attend Phys: Keaton Benson MD Discharge: Date of : 48 Report #: [id number] SOCIAL HISTORY: The patient quit smoking 25 years ago. He does not drink alcohol. FAMILY HISTORY: Noncontributory. REVIEW OF SYSTEMS: As per HPI. PHYSICAL EXAMINATION: VITAL SIGNS: Stable. Blood pressure 98/59, pulse 83 and regular. GENERAL: This is a pleasant gentleman who does not appear to be in distress. HEENT: Extraocular muscles intact. The patient is wearing glasses. Mucous membranes moist. NECK: Examination of the neck shows no jugular venous distention. There are no carotid bruits. CHEST: Reveals diffuse expiratory wheezes throughout. I do not appreciate rales or rhonchi. CARDIOVASCULAR: Reveals a regular rhythm with normal S1, S2. I did not appreciate gallop or murmur. ABDOMEN: Reveals normal bowel sounds. The abdomen is protuberant, soft and nontender. EXTREMITIES: Shows no edema. Peripheral pulses 2+ and palpable. SKIN: Warm and dry. A 12-lead EKG shows sinus rhythm without acute ST or T-wave abnormality. Labs are reviewed. Sodium 137, potassium 4.3, chloride 105, bicarbonate 28, BUN 16, creatinine 1.1, serum glucose 235. LFTs within normal limits. Calcium 9.0, magnesium 1.4, total protein 6.7, albumin 3.4. Coags within normal limits. Troponin less than 0.06. NT-proBNP 204. White blood cell count 8.9, hemoglobin 14.1, platelet count 167,000. Admission chest x-ray shows no acute cardiopulmonary process. IMPRESSION AND RECOMMENDATION: 1. Atypical prolonged chest pain without evidence of myocardial ischemia. His enzymes are unremarkable. EKG is stable. Would complete rule out with serial enzymes. Continue cardiac medications as outlined above. We will treat with heparin and nitroglycerin overnight. Consider stress testing versus catheterization pending results of labs. 2. Hyperlipidemia. Repeat fasting lipid profile at this time. Continue atorvastatin at current dose. 3. Hypertension. Blood pressure low normal on current cardiac regimen at this time. [facility] [address] [place] [address] CONSULTATION Name: CINTHYA MILES Room: [address] IN M.R.#: [id number] Admission: 04/14/18 Attend Phys: Keaton Benson MD Discharge: Date of : 48 Report #: [id number] 4. Chronic obstructive pulmonary disease with apparent exacerbation. Treatment per Pulmonology and primary physician. <ELECTRONICALLY SIGNED> By: Peter Rajan MD, FACC 04/15/18 0911 1701 [id number] hospitalnasim Rajan MD, FACC /nt
--- NOTE | 2018-04-15 11:49 | NUR ---
ASSUMED PT CARE AT 0700 PT IS ALERT AND ORIENTED X 4 PT C/O BACK PAIN GAVE PAIN MEDS PT DENIES SOA ON 2L/NC, PT ORDERED TO BE UP WITH SBA PT REFUSES TO CALL FOR HELP AND REFUSES THE BED ALARM PT BECOMES AGITATED WHEN BED ALARM IS ON, PT WAS AGITATED WHEN THIS NURSE GAVE PAIN MEDS THREATENING TO WALK OUT IF PAIN MEDS WERE NOT GIVEN WHICH THIS NURSE WAS IN THE ROOM WITH PAIN MEDS TO ADMINISTER, PT IS SR PVC ON THE MONITOR, PT NPO FOR STRESS TEST WHICH PT WAS TAKEN DOWN FOR, WILL CONTINUE TO MONITOR
--- NOTE | 2018-04-15 11:55 | NUR ---
Pt out of room, CM to f/u later
[2018-04-16] VITALS: BP 102/54
[2018-04-16 04:00] VITALS: BP 157/67
--- NOTE | 2018-04-16 05:42 | NUR ---
ASSUMED CARE OF PT AFTER REPORT AT 1930. PT A&OX4. VSS. PHYSICAL ASSESSMENT COMPLETED AND CHARTED. PT ON O2 AT 2L PRN WITH 95% O2 SAT. PT TRACING SR/1ST DEG/PVC ON TELE. PT UP SUPPOSED TO BE BY STANDBY ASSIST DUE TO RECENT FALL 2-3 WKS AGO BUT REFUSED TO BE ASSISTED AND REFUSED TO TURN ON BED ALARM EVEN AFTER EDUCATION GIVEN. PT C/O OF NEC & BACK PAIN WITH PAIN SCALE OF 7/10-PAIN MEDS GIVEN PER SEP. MAGNESIUM 1.7. MEDS GIVEN PER ELECTROLYTE PROTOCOL. FOR 2ND PART OF STRESS TEST TODAY. PT RESTED WELL ON BED. CALL LIGHT WITHIN REACH. BED IN LOW POSITION.
[2018-04-16 07:53] VITALS: BP 120/53
--- NOTE | 2018-04-16 09:08 | NUR ---
ASSUMED CARE OF PT AROUND 0730 THIS AM. REFER TO ASSESSMENT. PT TO HAVE DAY TWO STRESS TEST TODAY. PRN TORADOL GIVEN FOR BACK/NECK PAIN. PT REPORTS PAIN IS FROM FALL A COUPLE OF WEEKS AGO. PT STATES HE WAS CHECKED OUT IN HOSPITAL POST FALL. VSS. TELE SR. NO OTHER CONCERNS AT THIS TIME. CLWR. WCTM.
[2018-04-16 11:35] VITALS: BP 115/69
--- NOTE | 2018-04-16 11:38 | NUR ---
INDUSTRIAL CLEANER SPOKE TO THE PATIENT TO DISCUSS HOME SITUATION, DISCHARGE PLANNING, AND TO INFORM OF THE ROLE OF CM. PATIENT ALERT, ORIENTED, AND INDEPENDENT WITH ADL'S. PATIENT RESIDES AT HOME ALONE. PATIENT DRIVES. PATIENT INFORMS THAT HIS DTR AJAY (DPOA) IS SUPPORTIVE AND IS AVAILABLE TO ASSIST HIM IF HE EVER NEEDED ANYTHING. PATIENT OWNS A WALKER AND CANE, BUT MOST OFTEN USES HE CANE FOR MOBILITY. PATIENT ALSO HAS HOME 2 THRU [facility]. PATIENT HAS A HX OF HH WITH [facility], AND INFORMS THAT HE WOULD LIKE HH WITH [facility] AT D/C IF RECOMMENDED BY PHYSICAN. PATIENT HAS NO HX OF SNF, AND PLANS TO RETURN HOME AT D/C. CM WILL REMAIN AVAILABLE TO ASSIST AND FOLLOW NEEDED.
[2018-04-16 15:30] VITALS: BP 139/83
[2018-04-16] MEDS ORDERED: IBUPROFEN 800800 M1 PO (17:05)
[2018-04-16] MEDS ORDERED: PERCOCET 10-321 EACH PO (17:05)
[2018-04-16] MEDS ORDERED: ROBAXIN 750 MG750 M1 PO (17:06)
--- NOTE | 2018-04-16 17:15 | CARDNUC ---
[place] [address] CARDIAC NUCLEAR IMAGING REPORT Name: CINTHYA MILES Room: 200-P [facility] IN [facility]#: [id number] Admission: 04/14/18 Attend Phys: Keaton Benson, Discharge: Date of : 48 Date of Service: 04/16/18 1715 Report #: [id number] THIS REPORT FOR: //name// APPROVED REPORT Study performed: 04/15/2018 12:40:53 Indication: Chest pain, Dyspnea, CAD s/p PCI Patient Location: In-Patient Room #: 200 Stress Tech: Quynh Andrade Stress Nurse: Marija Jackson RN Ht: 6 ft 2 in Wt: 366 lbs BSA: 2.81 m2 BMI: 46.98 Medical History Medical History: Angina, Arrhythmia, CAD s/p stent, CAD s/p MS, HTN, Hyperlipidemia, Diabetic Insulin Medications: Heparin, Atorvastatin, Carvedilol, ASA 81mg, Clopidogrel, Lisinopril, Terazosin, Spironolactone Allergies: Morphine, Codeine Cardiac Risk Factors: Age, HTN, Hyperlipidemia, DM, Past Smoker, FHX of CAD Previous Cardiac Procedures: PCI, Myocardial infarction Pretest Chest Pain Characteristics: No chest pain Exercise History: Sedentary Physical Disabilities: Back, Morbidly obese, Legs Meds Held (24 hrs): Carvedilol Pharmacologic Stress Pharmacologic stress test was performed by injecting Regadenoson 0.4 mg IV push over 10-15 seconds immediately followed by the intravenous injection of 35.0 mCi of Tc-99m Sestamibi. Time of stress injection: 12:00 Date: 04/15/2018 Administration Route: IV Administration Site: Left Wrist Heart Rate at time of stress injection: 98 bpm. Gated Stress SPECT was performed 40 minutes after stress injection. The images were gated to evaluate regional wall motion and calculate left ventricular ejection fraction. Stress Test Details Stress Test: Pharmacologic stress testing performed using 0.4 [place] [address] CARDIAC NUCLEAR IMAGING REPORT Name: CINTHYA MILES Room: [address]#: [id number] Admission: 04/14/18 Attend Phys: Keaton Benson, Discharge: Date of : 48 Date of Service: 04/16/18 1715 Report #: [id number] regadenoson per 5 mL given IV over 10 seconds. Reason for pharmacologic stress test: physical limitation. HR Max Heart Rate (APMHR): 152 bpm Resting HR: 77 bpm Target HR (85% APMHR): 129 bpm Max HR Achieved: 98 bpm % of APMHR: 64 Recovery HR: 87 bpm BP Resting BP: 123/60 mmHg Recovery BP: 165/53 mmHg ECG Resting ECG: Sinus Rhythm Stress ECG: Sinus Rhythm ST Change: None Arrhythmia: None Recovery ECG: Sinus Rhythm Recovery ST Change: None Recovery Arrhythmia: None Clinical Reason for Termination: Completed protocol Stress Symptoms: Dizziness Exercise duration: 0 min 0 sec Exercise capacity: 1.00 METs The patient had no significant cardiac symptoms with Lexiscan infusion. Nurse Comments Patient exhibited generalized weakness, 2x assist from wheelchair to bed. Patient SOA, strong productive cough with white sputum. Lungs coarse and wheezy on auscultation. Consulted Juli Frias and Dr. Rajan r/t using lexiscan with patient actively wheezing. Patient did have respiratory treatment prior to test. Physician stated test could proceed. Sitting lexiscan completed with minimal dizziness reported by patient, no other complaints. Lungs auscultated post test with same coarse and wheezing with productive cough. No apparent/obvious increase in respiratory status. Stress ECG Conclusion The baseline 12-lead EKG show sinus rhythm without acute ST or T wave abnormality. EKGs obtained during and post Lexiscan infusion show sinus rhythm with no significant ST or T wave changes when [place] [address] CARDIAC NUCLEAR IMAGING REPORT Name: CINTHYA MILES Room: [address] IN .#: [id number] Admission: 04/14/18 Attend Phys: Keaton Benson, Discharge: Date of : 48 Date of Service: 04/16/18 1715 Report #: [id number] Study Quality Study: Fair Artifact: No artifact Study Data Post stress, the left ventricular ejection was 49%.. Perfusion Myocardial perfusion images show fixed defects involving the apical inferoapical and inferolateral apical wall. There is also a fixed defect in the basal inferior wall. No reversible defects are identified. Wall Motion Gated images show hypokinesis involving the inferolateral apical wall as well as the basal inferior wall. Global LV systolic function is mildly decreased. Nuclear Conclusion ECG Findings: negative for ischemia Clinical Findings: negative for ischemia Nuclear Findings: negative for ischemia Exercise Capacity: not assessed Left Ventricular Function: abnormal Myocardial perfusion images show no defects to suggest prior infarct involving the inferoapical and inferolateral apical as well as the basal inferior wall. No reversible defects are identified. This is not a high risk study. <Conclusion> The baseline 12-lead EKG show sinus rhythm without acute ST or T wave abnormality. EKGs obtained during and post Lexiscan infusion show sinus rhythm with no significant ST or T wave changes when compared to baseline. <ELECTRONICALLY SIGNED> By: Peter Rajan MD, FACC 04/16/181714 14 14 Peter Rajan MD, FACC /INF
--- NOTE | 2018-04-16 18:18 | NUR ---
PT SOMEWHAT PROGRESSING TOWARDS GOALS THIS SHIFT. STRESS TEST COMPLETED. CARDIOLOGY OK WITH DC HOME. PT'S PAIN SOMEWHAT MANAGED WITH PRN PAIN MEDICATION. CT SCANS OBTAINED FOR BACK PAIN, AWAITING RESULTS. PT STARTED ON ORAL PREDNISONE THIS SHIFT. ANTICIPATE DC HOME TOMORROW. NO OTHER CONCERNS AT THIS TIME. CLWR. WCTM.
[2018-04-16 20:00] VITALS: BP 127/52
[2018-04-17] VITALS: BP 123/72
[2018-04-17 04:00] VITALS: BP 106/46
--- NOTE | 2018-04-17 04:22 | NUR ---
ASSUMED CARE OF PT AFTER REPORT AT 1930. PT A&OX4. VSS. PHYSICAL ASSESSMENT COMPLETED AND CHARTED. PT ON AT 2L NC WITH 96% O2 SAT. PT TRACING SR/1STDEG/PVC ON TELE. PT STILL REFUSED TO BE ASSISTED AND TURN BED ALARM ON EVEN AFTER EDUCATION WAS DONE. PT C/O OF NECK & BACK PAIN WITH PAIN SCALE OF 7/10-PAIN MEDS GIVEN PER WITH PARTIAL RELIEF. DENIES CHEST PAIN. HOURLY ROUNDING OBSERVED. CALL LIGHT WITHIN REACH. BED IN LOW POSITION.
[2018-04-17 08:00] VITALS: BP 112/68
--- NOTE | 2018-04-17 09:00 | NUR ---
ASSUMED CARE OF PT AT 0730. PT RESTING IN CHAIR WAITING FOR BREAKFAST. PT A&0X4, DENIES ANY PAIN AT THIS TIME. PT GIVEN PAIN MEDICINE AND LIDOCAINE CREAM BY NOC SHIFT. PT TRACING SR WITH FIRST DEGREE ON THE VP CONSTRUCTION. ON RA SAT 97%. PT WEARS 2L NC PRN. PT STATES HE IS READY TO GO HOME. PT UP SBA TO BATHROOM. PT GOAL FOR TODAY IS PAIN MGMT AND DISCHARGE HOME THIS AFTERNOON. AM ASSESSMENT CHARTED. MEDICATIONS PER MAR. PT REPOSITIONS SELF. HOURLY ROUNDING OBSERVED. BED IN LOW POSITION. CALL LIGHT WITHIN REACH. WILL CONTINUE PLAN OF CARE.
[2018-04-17 12:00] VITALS: BP 133/76
[2018-04-17 15:52] VITALS: BP 136/75
[2018-04-17 18:42] VITALS: BP 136/75
--- NOTE | 2018-04-17 18:55 | NUR ---
PULM AND ORTHO CONSULTS COMPLETED AND OK FOR PT TO DISCHARGE HOME. DISCHARGE ORDERS RECEIVED. DISCHARGE INSTRUCTIONS, CARE NOTES, SCRIPTS AND FOLLOW UP APPTS GIVEN TO PT. PT COMMUNICATES UNDERSTANDING OF DISCHARGE TEACHING. IV AND HOTEL SERVICE SUPERVISOR REMOVED. PT DISCHARGED WITH ALL BELONGINGS AND PAPERWORK VIA WHEELCHAIR WITH NURSING STAFF TO OWN PERSONAL VEHICLE.
--- NOTE | 2018-04-18 08:19 | CON ---
[address] [address] CONSULTATION Name: CINTHYA MILES Room: [address] IN M.R.#: [id number] Admission: 04/14/18 Attend Phys: Keaton Benson MD Discharge: 04/17/18 Date of : 48 Report #: [id number] THIS REPORT FOR: //name// CC: Estelle Benson DATE OF SERVICE: 04/17/2018 REQUESTING PHYSICIAN: Dr. Ovalles. REASON FOR CONSULTATION: Abnormal CAT scan. DISCUSSION: The patient is a 67-year-old man who is a remote smoker. Our group did see him when he was hospitalized here in December 2017. He has a known history of cardiac disease. In December, he did require stent placement. Our group saw him at that time because of abnormalities noted on his x-rays and CT scan. Nodular density is noted on the left side; however, he also follows with the pulmonary service at [facility]. Just prior to coming into the hospital here at that time, he had undergone evaluation because of his nodular densities and concern he could have malignancy. He did have bronchoscopy done at that time. He has done well from a pulmonary standpoint. Generally, he is feeling fairly good. He does have a history of underlying COPD. He sleeps with O2 at home. Has a nebulizer. He does Symbicort twice a day, Spiriva daily, does use albuterol out of the nebulizer about 3 times a day and supplements that with an albuterol inhaler. He is currently on a round of prednisone. The scanning that was done with this admission actually showed considerable improvement in the findings noted in December; however, they have not cleared completely. Because he has had raised a question that he could have an atypical mycobacterial infection, we were asked to see him. As noted, he has been doing fairly well. Does get short of breath with exertion. When he has a cough, his secretions are white. Denies any hemoptysis. He has not had recent chest pain. He does do his medications as noted. He states his solutions executive cloud sales at [place] told him that no cancer was found. They had also checked him for infection and nothing was found. Usually, cultures of fungi as well as a AFB done at the time of her bronchoscopy and I assume these were done. Certainly, it has been greater than 6 weeks, so that would have been finalized by now. He does have a followup appointment scheduled with them. He has had prior episodes of pneumonia, has COPD, though I do not have any PFTs on him. PAST MEDICAL HISTORY: Besides the coronary artery disease, which required stent [address] [address] CONSULTATION Name: CINTHYA MILES Room: [address] IN M.R.#: [id number] Admission: 04/14/18 Attend Phys: Keaton Benson MD Discharge: 04/17/18 Date of : 48 Report #: [id number] placement in December 2017 when he had a STEMI, is remarkable for morbid obesity, diabetes mellitus. PAST SURGICAL HISTORY: He has had total knee replacement, carpal tunnel repair. MEDICATIONS: Currently at this time, he is receiving his insulin, doxycycline, metformin, prednisone currently 40 mg a day, lisinopril, topical lidocaine, Plavix, aspirin, Coreg, terazosin, budesonide, atorvastatin, DuoNeb q.i.d. SOCIAL HISTORY: Remote smoker. He is a . He is retired. FAMILY HISTORY: Positive for heart disease. REVIEW OF SYSTEMS: Please see positives and pertinent negatives above. He is having some issues with his back. States he has been told that may be spinal stenosis. He has been trying to pursue some therapy and hopefully avoid surgery. He states he has lower extremity edema. Has had some chest pain. Does get short of breath with exertion. No syncopal episodes. PHYSICAL EXAMINATION: GENERAL: A male, looks stated age. Sitting up in a chair. He is alert, cooperative. He is in no acute distress. HEENT: Head is normocephalic. Sclerae nonicteric. Mucous membranes are moist. NECK: Without adenopathy. No JVD is noted. HEART: Regular rate. LUNGS: Show breath sounds to be mildly diminished. He does have a few late expiratory wheezes heard. Excursion is equal. BACK: He has no CVA tenderness. EXTREMITIES: He has no clubbing. Lower extremities revealed just some trace pretibial edema. LABORATORY AND X-RAY FINDINGS: His chest film and CT scans were reviewed. He did have the CT chest done without contrast. The nodular opacities noted previously have significantly improved; however, he still has some additional changes noted. No masses. Minimal focal areas of "tree-in-bud" infiltrate seen in left lower lobe. On his chemistry, BUN 22, creatinine 1.2, potassium is 4.5. White blood cell count 8900, hemoglobin 14.1, hematocrit 42.3, platelets are normal. Arterial blood gases done on admission on 2 liters revealed a pH of 7.37, pCO2 of 39, pO2 of 92, bicarbonate 22 with a saturation of 96%. IMPRESSION: 1. Abnormal CT scan. Actually, his CT findings have improved dramatically compared to studies done back in December. He has already had evaluation done including bronchoscopy. I presume he has had cultures done, which would rule out TB or atypical mycobacterial infection. He is due to follow up with his solutions executive cloud [place] [address] CONSULTATION Name: CINTHYA MILES Room: [address] IN .R.#: [id number] Admission: 04/14/18 Attend Phys: Keaton Benson MD Discharge: 04/17/18 Date of : 48 Report #: [id number] 2. Chronic obstructive pulmonary disease. Recent exacerbation. Clinically, he is improving. He is already on a good bronchodilator regimen at home. 3. Nocturnal hypoxemia, probably related to chronic obstructive pulmonary disease as well as his left ventricular dysfunction. 4. Coronary artery disease, status post stent placement this spring. 5. Morbid obesity. 6. Diabetes mellitus. RECOMMENDATIONS: 1. No additional evaluation of his lungs are needed at this time. He will keep his followup with his pulmonary doctor at [place]. 2. Continue his bronchodilator regimen. Agree with the prednisone taper. <ELECTRONICALLY SIGNED> By: [place] Johnson MD 04/18/18 0819 1724 [id number] Rincon MD /nt
== END 2018-04-17 19:00 | disposition home or self-care (01) | DRG 193 ==
LOC: M.ERS 13:21 → M.TBA-ER 15:05 → M.2W 15:05
PROVIDERS: Emergency Medicine; ADMIT Internal Medicine
DX: J15.9 Unspecified bacterial pneumonia (principal); I50.43 Acute on chronic combined systolic (congestive) and diastolic (congestive) heart failure; I25.110 Atherosclerotic heart disease of native coronary artery with unstable angina pectoris; J44.1 Chronic obstructive pulmonary disease with (acute) exacerbation; A31.9 Mycobacterial infection, unspecified; Z68.42 Body mass index [BMI] 45.0-49.9, adult; I11.0 Hypertensive heart disease with heart failure; E11.9 Type 2 diabetes mellitus without complications; M19.90 Unspecified osteoarthritis, unspecified site; E66.01 Morbid (severe) obesity due to excess calories; F32.9 Major depressive disorder, single episode, unspecified; Z96.652 Presence of left artificial knee joint; E78.5 Hyperlipidemia, unspecified; I25.5 Ischemic cardiomyopathy; R09.02 Hypoxemia; F41.8 Other specified anxiety disorders; M48.061 Spinal stenosis, lumbar region without neurogenic claudication; I25.2 Old myocardial infarction; Z95.5 Presence of coronary angioplasty implant and graft; Z88.6 Allergy status to analgesic agent; Z87.891 Personal history of nicotine dependence; Z82.49 Family history of ischemic heart disease and other diseases of the circulatory system; Z79.82 Long term (current) use of aspirin; Z79.899 Other long term (current) drug therapy

== ENCOUNTER 2018-07-25 01:44 | Emergency (ER) | payer OTHER ==
[~2018-07-25] VITALS: Ht 188 cm; Wt 158.8 kg
[~2018-07-25 01:44] MED LIST changes: +IBUPROFEN 800800 M1 PO; +PERCOCET 10-321 EACH PO; +ROBAXIN 750 MG750 M1 PO
[2018-07-25] MEDS ORDERED: FLUOROURACIL30 GM TOP (02:19)
[2018-07-25] MEDS ORDERED: XARELTO20 MG PO (02:21)
[2018-07-25] MEDS ORDERED: XANAX 0.5 MG0.5 MG PO (02:22)
[2018-07-25] MEDS ORDERED: ATROVENT HFA14 GM INH (02:22)
[2018-07-25] MEDS ORDERED: PAXIL10 MG PO (02:22)
[2018-07-25] MEDS ORDERED: AUGMENTIN 875-1 EACH PO ×2 (02:22→12:50)
[2018-07-25] MEDS ORDERED: DICLOFENAC SODI75 MG (02:23)
[2018-07-25] MEDS ORDERED: PROTONIX40 M2 PO (02:23)
[2018-07-25] MEDS ORDERED: CLARITIN10 MG PO (02:24)
[2018-07-25] MEDS ORDERED: INCRUSE ELLI62.5 MCG INH (02:24)
[2018-07-25] MEDS ORDERED: REQUIP 0.25 M0.25 M1 PO (02:24)
[2018-07-25 03:10] VITALS: BP 134/68
== END 2018-07-25 03:10 | disposition home or self-care (01) ==
LOC: M.ERS 01:44
DX: R04.0 Epistaxis (principal); F41.9 Anxiety disorder, unspecified; F32.9 Major depressive disorder, single episode, unspecified; J44.9 Chronic obstructive pulmonary disease, unspecified; E11.9 Type 2 diabetes mellitus without complications; M19.90 Unspecified osteoarthritis, unspecified site; I50.32 Chronic diastolic (congestive) heart failure; Z87.891 Personal history of nicotine dependence; Z88.5 Allergy status to narcotic agent; Z88.6 Allergy status to analgesic agent; Z87.01 Personal history of pneumonia (recurrent); Z95.5 Presence of coronary angioplasty implant and graft; E66.01 Morbid (severe) obesity due to excess calories; Z68.41 Body mass index [BMI] 40.0-44.9, adult

== ENCOUNTER 2018-07-25 12:29 | Emergency (ER) | payer OTHER ==
[~2018-07-25] VITALS: Ht 188 cm; Wt 167.4 kg
[~2018-07-25 12:29] MED LIST changes: +ATROVENT HFA14 GM INH; +AUGMENTIN 875-1 EACH PO; +CLARITIN10 MG PO; +DICLOFENAC SODI75 MG; +FLUOROURACIL30 GM TOP; +INCRUSE ELLI62.5 MCG INH; +PROTONIX40 M2 PO; +REQUIP 0.25 M0.25 M1 PO; +XANAX 0.5 MG0.5 MG PO; +XARELTO20 MG PO
[2018-07-25 12:41] VITALS: BP 183/87
[2018-07-25] MEDS ORDERED: AUGMENTIN 875-1 EACH PO (12:50)
== END 2018-07-25 13:01 | disposition home or self-care (01) ==
LOC: M.ERS 12:29
DX: R04.0 Epistaxis (principal); F41.9 Anxiety disorder, unspecified; F32.9 Major depressive disorder, single episode, unspecified; J44.9 Chronic obstructive pulmonary disease, unspecified; I50.32 Chronic diastolic (congestive) heart failure; E11.9 Type 2 diabetes mellitus without complications; M19.90 Unspecified osteoarthritis, unspecified site; E66.01 Morbid (severe) obesity due to excess calories; Z68.42 Body mass index [BMI] 45.0-49.9, adult; Z87.891 Personal history of nicotine dependence; Z88.5 Allergy status to narcotic agent; Z88.6 Allergy status to analgesic agent; Z87.01 Personal history of pneumonia (recurrent); Z95.5 Presence of coronary angioplasty implant and graft

== ENCOUNTER 2018-11-19 10:47 | Inpatient (IN) | payer OTHER ==
[~2018-11-19] VITALS: Ht 188 cm; Wt 164.2 kg
[2018-11-19 10:53] VITALS: BP 128/51
[2018-11-19 11:25] LABS: ABSOLUTE EOSINOPHILS 0.1 thou/uL (0.0-0.7); ABSOLUTE MONOCYTES 0.3 thou/uL (0.0-1.2); BASOPHILS 0.5 %; EOSINOPHILS 2.1 %; HEMATOCRIT 38.2 % (42.0-52.0); HEMOGLOBIN 12.8 gm/dL (14.0-18.0); MCH 27.9 pg (26.0-34.0); MCHC 33.3 g/dL (28.0-37.0); MCV 83.7 fL (80.0-100.0); MONOCYTES 5.4 %; MPV 8.2 fl. (7.2-11.1); NUCLEATED RBCS 0 /100WBC; PLATELET COUNT* 177 thou/uL (150-400); RBC 4.57 mil/uL (4.50-6.00); RDW-CV 15.1 % (10.5-14.5); WBC 6.5 thou/uL (4.0-11.0)
[2018-11-19 11:50] LABS: ANION GAP 5 mmol/L (7-16); BUN 14 mg/dL (7-18); CALCIUM 8.8 mg/dL (8.5-10.1); CHLORIDE 107 mmol/L (98-107); CO2 30 mmol/L (21-32); GLUCOSE 128 mg/dL (70-99); POTASSIUM 4.3 mmol/L (3.5-5.1); SODIUM 142 mmol/L (136-145); TROPONIN-I LEVEL <0.06 ng/mL (<0.06)
[2018-11-19 11:52] LABS: ALBUMIN 3.2 g/dL (3.4-5.0); ALKALINE PHOSPHATASE 85 U/L (46-116); LIPASE 131 U/L (73-393); MAGNESIUM 1.4 mg/dL (1.8-2.4); NT-PRO BRAIN NAT PEPTIDE 572 pg/mL (<300); SGOT 18 U/L (15-37); SGPT 28 U/L (30-65); TOTAL BILIRUBIN 0.5 mg/dL (<0.1-1.0); TOTAL PROTEIN 7.1 g/dL (6.4-8.2)
[2018-11-19 17:38] VITALS: BP 118/73
[2018-11-19 17:49] VITALS: BP 135/79
[2018-11-19] MEDS ORDERED: HUMALOG100 UNIT/1 SUBQ ×3 (18:03→18:04)
--- NOTE | 2018-11-19 18:43 | NUR ---
RECEIVED PT FROM ER. ADMISSION ASSESSMENT COMPLETED. VSS. SB W/ AF BLOCK. PT REPORTS INTERMITTENT CHEST PAIN 5/10. REFUSES NITRO AT THIS TIME. ALLERGIC TO MORPHINE. CARDIOLOGY CONSULT CALLED. AWAITING ADDITIONAL ORDERS.
--- NOTE | 2018-11-19 19:16 | NUR ---
MAG 1.4. PAGED AND ASKED FOR ELECTROLYTE PROTOCL.
[2018-11-19 19:46] LABS: APTT 25.6 Seconds (25.0-31.3); PROTIME 10.7 Seconds (9.20-11.50)
[2018-11-19 20:00] VITALS: BP 146/78
[2018-11-19 20:28] LABS: CALCIUM 9.1 mg/dL (8.5-10.1); MAGNESIUM 1.5 mg/dL (1.8-2.4); POTASSIUM 3.9 mmol/L (3.5-5.1)
[2018-11-20 00:01] VITALS: BP 141/79
--- NOTE | 2018-11-20 03:53 | NUR ---
ASSUMED PT CARE AT APPROX 1930. PT IS AWAKE AND ORIENTED X4. VSS ON 2L/NC. LEAD SIMULATION MODELING ENGINEER IN PLACE TRACING SR WITH 1st DEGREE AVB. PT C/O CHEST PAIN 5/10 RADIATING DOWN HIS LEFT SHOULDER. REFUSED NITROS. HEPARIN THERAPY STARTED ORDERED. PT VERBALIZED CHEST PAIN IS PARTIALLY RELIEVED. PT WAS ABLE TO SLEEP MOST OF THE NIGHT. CALL LIGHT WITHIN REACH, HOURLY ROUNDING DONE FOR PT SAFETY.
[2018-11-20 03:54] LABS: ABSOLUTE EOSINOPHILS 0.2 thou/uL (0.0-0.7); ABSOLUTE LYMPHOCYTES 1.2 thou/uL (0.8-5.3); ABSOLUTE MONOCYTES 0.5 thou/uL (0.0-1.2); ABSOLUTE NEUTROPHILS 5.4 thou/uL (1.6-8.1); BASOPHILS 0.7 %; EOSINOPHILS 2.5 %; HEMATOCRIT 36.4 % (42.0-52.0); LYMPHOCYTES 16.7 %; MCH 27.6 pg (26.0-34.0); MCHC 32.9 g/dL (28.0-37.0); MCV 83.9 fL (80.0-100.0); MONOCYTES 6.2 %; MPV 8.8 fl. (7.2-11.1); NUCLEATED RBCS 0 /100WBC; PLATELET COUNT* 160 thou/uL (150-400); POLYS 73.9 %; RBC 4.34 mil/uL (4.50-6.00); RDW-CV 15.1 % (10.5-14.5); WBC 7.3 thou/uL (4.0-11.0)
[2018-11-20 04:00] VITALS: BP 122/57
[2018-11-20 04:26] LABS: CALCIUM 8.7 mg/dL (8.5-10.1); CREATININE 0.9 mg/dL (0.6-1.3); POTASSIUM 3.9 mmol/L (3.5-5.1)
--- NOTE | 2018-11-20 11:43 | NUR ---
Nutrition: screen for BMI >40. Wt stable past year. Was provided with CHO controlled diet edu in past and wt loss education last fall. BG controlled. Pt is NPO. Meds and labs reviewed. No recommendations at this time, assessed at low nutrition risk.
[2018-11-20 12:30] VITALS: BP 148/87
--- NOTE | 2018-11-20 15:20 | NUR ---
Pt is A&O. Resides at home alone. Independent. Pt has a cane that he uses for mobility. Supportive dtr. Home o2 through [employer]. Hx of [facility]. No hx of SNF. Goal is home at tn. Following.
[2018-11-20 16:19] VITALS: BP 136/75
--- NOTE | 2018-11-20 16:33 | EKG ---
[place] [address] ELECTROCARDIOGRAM REPORT Name: CINTHYA MILES Room: [address] ADM IN M.R.#: [id number] Admission: 11/19/18 Attend Phys: Wali Mendoza MD Discharge: Date of : 48 Report #: [id number] THIS REPORT FOR: //name// [facility] ED Test Date: 2018-11-19 Test Time: 10:53:09 Pat Name: CINTHYA MILES Department: Room: [facility] Gender: M Childcare Center Director: Hallie EATON : 1950 Requested By: Federico Arredondo Order Number: [id number] MD: Michael Rios Measurements Intervals [place] Rate: 60 P: 27 ND: 258 QRS: -4 QRSD: 113 T: 9 QT: 461 QTc: 461 Interpretive Statements Sinus rhythm Prolonged ND interval Left atrial enlargement Incomplete right bundle branch block Inferior infarct, old Compared to ECG 04/14/2018 22:27:55 Atrial abnormality now present Incomplete right bundle-branch block now present Ventricular premature complex(es) no longer present Myocardial infarct finding still present Electronically Signed On 11-20-2018 16:33:41 CDT by Michael Rios [email or web address] <ELECTRONICALLY SIGNED> By: Michael Rios MD, [facility] 11/20/18 1633 1053 1053 Michael Rios MD, [facility] /EPI
--- NOTE | 2018-11-20 18:41 | NUR ---
LARY RESTING IN BED. PATIENT WAS HYPERTENSIVE AFTER CARDIAC CATH AND WAS GIVEN METOPROLO AND AMLODIPINE PER DR GOLD. EXPECTED TO DISCHARGE EARLY TOMORROW SO THAT HE CAN GET TO HIS DIALYSIS APPOINTMENT. CARROL CHOI COMPLETD FOR PATIENT SAFETY
--- NOTE | 2018-11-20 18:46 | NUR ---
PATIENT RESTING IN BED. UP AD RAMONE. BLOOD GLUCOSE CHECKS WITH SCHEDULED INSULIN. CARDIAC MEDICATIONS ADJUSTED FOR MEDICAL MANAGEMENT OF ANGINA. HOURLY ROUNDING COMPLETED FOR PATIENT SAFETY
[2018-11-20 20:00] VITALS: BP 117/71
[2018-11-20] MEDS ORDERED: NORCO 5-325 TA1 EACH PO (20:06)
[2018-11-21] VITALS: BP 100/60
[2018-11-21 04:00] VITALS: BP 124/81
--- NOTE | 2018-11-21 05:27 | NUR ---
ASSUMED CARE OF PT AFTER REPORT AT 1930. PT A&OX4. VSS. PHYSICAL ASSESSMENT COMPLETED AND CHARTED. PT ON RA. PT TRACING SR/SB/1ST DEG/PVC ON TELE. PT UPADLIB. PT COMPLAINED OF LEFT LEG PAIN- DR LUIS INFORMED WITH NEW ORDER BUT REFUSED TO TAKE TRAMADOL. PT DENIES CHEST PAIN OR SOA. HOURLY ROUNDING OBSERVED. CALL LIGHT WITHIN REACH.
[2018-11-21 08:28] VITALS: BP 124/81
[2018-11-21] MEDS ORDERED: RANEXA500 MG PO (08:30)
[2018-11-21] MEDS ORDERED: IMDUR 30 MG TAB30 M1 PO (08:30)
[2018-11-21 08:43] VITALS: BP 139/68
[2018-11-21] MEDS ORDERED: NAPROSYN500 MG PO (10:54)
--- NOTE | 2018-11-21 13:04 | NUR ---
ORDER RECEIVED TO [facility] TO SELF CARE. MED REC, MEDICAITONS EDUCATION, NEW AND CHANGED PRESCRIPTIONS, STROKE EDUCATON, AND NEED FOR FOLLOW UP APPOINTMENTS COVERED AND STATED UNDERSTOOD BY LARY. LARY INFORMED TO RESTART HIS METFORMIN ON 11/23 AND HE STATED UNDERSRTOOD. HOURLY ROUNDING COMPLETED FOR LARY SAFETY. LARY TRANSPORTED VIA WHEELCHAIR TO AWAITING CAR BY [employer]. DISCHAREG TIME OF 11:15.
== END 2018-11-21 11:15 | disposition home or self-care (01) | DRG 303 ==
LOC: M.ERS 10:47 → M.TBA-ER 12:39 → M.2W 12:39
PROVIDERS: Emergency Medicine Emergency Medical Services; Internal Medicine Cardiovascular Disease; ADMIT Internal Medicine
DX: I25.119 Atherosclerotic heart disease of native coronary artery with unspecified angina pectoris (principal); I50.42 Chronic combined systolic (congestive) and diastolic (congestive) heart failure; Z68.42 Body mass index [BMI] 45.0-49.9, adult; E66.01 Morbid (severe) obesity due to excess calories; F41.1 Generalized anxiety disorder; F32.9 Major depressive disorder, single episode, unspecified; Z96.652 Presence of left artificial knee joint; J44.9 Chronic obstructive pulmonary disease, unspecified; I48.0 Paroxysmal atrial fibrillation; G89.29 Other chronic pain; E78.5 Hyperlipidemia, unspecified; M19.90 Unspecified osteoarthritis, unspecified site; E11.40 Type 2 diabetes mellitus with diabetic neuropathy, unspecified; I25.2 Old myocardial infarction; Z95.5 Presence of coronary angioplasty implant and graft; Z88.6 Allergy status to analgesic agent; Z87.891 Personal history of nicotine dependence; Z82.49 Family history of ischemic heart disease and other diseases of the circulatory system; Z79.899 Other long term (current) drug therapy

== ENCOUNTER 2018-12-10 16:28 | Inpatient (IN) | payer OTHER ==
[~2018-12-10] VITALS: Ht 182.9 cm; Wt 161.9 kg
[~2018-12-10 16:28] MED LIST changes: +HUMALOG100 UNIT/1 SUBQ; +NAPROSYN500 MG PO; +RANEXA500 MG PO
[2018-12-10 17:01] LABS: ABSOLUTE EOSINOPHILS 0.1 thou/uL (0.0-0.7); ABSOLUTE LYMPHOCYTES 1.5 thou/uL (0.8-5.3); ABSOLUTE MONOCYTES 1.1 thou/uL (0.0-1.2); ABSOLUTE NEUTROPHILS 11.4 thou/uL (1.6-8.1); BASOPHILS 0.2 %; EOSINOPHILS 0.9 %; HEMATOCRIT 43.5 % (42.0-52.0); HEMOGLOBIN 14.4 gm/dL (14.0-18.0); LYMPHOCYTES 10.5 %; MCH 28.1 pg (26.0-34.0); MCHC 33.1 g/dL (28.0-37.0); MCV 84.8 fL (80.0-100.0); MONOCYTES 7.8 %; MPV 8.7 fl. (7.2-11.1); NUCLEATED RBCS 0 /100WBC; PLATELET COUNT* 232 thou/uL (150-400); POLYS 80.6 %; RBC 5.13 mil/uL (4.50-6.00); RDW-CV 15.8 % (10.5-14.5); WBC 14.2 thou/uL (4.0-11.0)
[2018-12-10 17:11] LABS: ANION GAP 11 mmol/L (7-16); BUN 23 mg/dL (7-18); CALCIUM 9.1 mg/dL (8.5-10.1); CHLORIDE 104 mmol/L (98-107); CO2 26 mmol/L (21-32); CREATININE 1.2 mg/dL (0.6-1.3); GLUCOSE 280 mg/dL (70-99); POTASSIUM 3.8 mmol/L (3.5-5.1); SODIUM 141 mmol/L (136-145)
[2018-12-10 17:12] LABS: APTT 21.5 Seconds (25.0-31.3)
[2018-12-10 17:22] LABS: ALBUMIN 3.4 g/dL (3.4-5.0); ALKALINE PHOSPHATASE 69 U/L (46-116); LIPASE 170 U/L (73-393); MAGNESIUM 1.7 mg/dL (1.8-2.4); NT-PRO BRAIN NAT PEPTIDE 240 pg/mL (<300); SGOT 15 U/L (15-37); SGPT 33 U/L (30-65); TOTAL BILIRUBIN 0.8 mg/dL (<0.1-1.0); TOTAL PROTEIN 6.6 g/dL (6.4-8.2); TROPONIN-I LEVEL <0.06 ng/mL (<0.06)
[2018-12-10 19:59] VITALS: BP 113/55
[2018-12-10] MEDS ORDERED: EFFIENT10 MG PO (20:13)
[2018-12-10 20:37] VITALS: BP 104/60
[2018-12-10 21:00] VITALS: BP 98/59
[2018-12-10 22:47] VITALS: BP 111/63
[2018-12-10 23:01] VITALS: BP 97/62
[2018-12-11] VITALS (12 sets, daily range): BP systolic 100–149; BP diastolic 42–94
[2018-12-11 03:51] LABS: HEMATOCRIT 40.3 % (42.0-52.0); HEMOGLOBIN 13.1 gm/dL (14.0-18.0); MCH 27.5 pg (26.0-34.0); MCHC 32.6 g/dL (28.0-37.0); MCV 84.3 fL (80.0-100.0); MPV 8.3 fl. (7.2-11.1); RBC 4.78 mil/uL (4.50-6.00); RDW-CV 15.8 % (10.5-14.5); WBC 9.8 thou/uL (4.0-11.0)
[2018-12-11 04:19] LABS: ANION GAP 5 mmol/L (7-16); BUN 25 mg/dL (7-18); CALCIUM 8.6 mg/dL (8.5-10.1); CHLORIDE 103 mmol/L (98-107); CHOLESTEROL 120 mg/dL (<200); CO2 29 mmol/L (21-32); CREATININE 1.1 mg/dL (0.6-1.3); GLUCOSE 139 mg/dL (70-99); HDL CHOLESTEROL 55 mg/dL (>40); LDL CHOLESTEROL 43 mg/dL (<100); POTASSIUM 4.5 mmol/L (3.5-5.1); SODIUM 137 mmol/L (136-145); TC:HDL 2.2 Ratio (Not establshd); TRIGLYCERIDE 111 mg/dL (<150); VLDL 22 mg/dL (<40)
[2018-12-11 04:34] LABS: SERUM ASSESSMENT CLEAR
--- NOTE | 2018-12-11 10:44 | EKG ---
[place] [address] ELECTROCARDIOGRAM REPORT Name: CINTHYA MILES Room: [address] ADM IN M.R.#: [id number] Admission: 12/10/18 Attend Phys: Eliceo Burkett MD, F Discharge: Date of : 48 Report #: [id number] THIS REPORT FOR: //name// [facility] ED Test Date: 2018-12-10 Test Time: 16:47:57 Pat Name: CINTHYA MILES Department: Room: [address] Gender: M Fiber Designer: : 1950 Requested By: Federico Arredondo Order Number: [id number] Reading MD: Eliceo Burkett Measurements Intervals [place] Rate: 82 P: 17 NM: 180 QRS: 66 QRSD: 114 T: 48 QT: 384 QTc: 449 Interpretive Statements Sinus rhythm Inferior infarct, acute (RCA) Artifact in lead(s) V1 and baseline wander in lead(s) V1,V2,V3,V6 Compared to ECG 11/19/2018 10:53:09 inferior injury pattern seen Myocardial infarct finding still present Electronically Signed On 12-11-2018 10:44:13 CDT by Eliceo Burkett [email or web address] <ELECTRONICALLY SIGNED> By: Eliceo Burkett MD, FAC 12/11/18 1044 1647 1647 Eliceo Burkett MD, FAC /EPI
--- NOTE | 2018-12-11 10:45 | EKG ---
[place] [address] ELECTROCARDIOGRAM REPORT Name: CINTHYA MILES Room: [address] ADM IN M.R.#: [id number] Admission: 12/10/18 Attend Phys: Eliceo Burkett MD, F Discharge: Date of : 48 Report #: [id number] THIS REPORT FOR: //name// [facility] ED Test Date: 2018-12-10 Test Time: 16:48:42 Pat Name: CINTHYA MILES Department: Room: [facility] Gender: M Supplemental Nurse: : 1950 Requested By: Federico Arredondo Order Number: [id number] MD: Eliceo Burkett Measurements Intervals [place] Rate: 82 P: 24 DC: 177 QRS: 69 QRSD: 115 T: 54 QT: 393 QTc: 459 Interpretive Statements Sinus rhythm Atrial premature complex Probable left atrial enlargement Nonspecific intraventricular conduction delay Inferior infarct, acute (RCA) Probable RV involvement, suggest recording right precordial leads Baseline wander in lead(s) V2,V3,V4,V6 Electronically Signed On 12-11-2018 10:44:55 CDT by Eliceo Burkett [email or web address] <ELECTRONICALLY SIGNED> By: Eliceo Burkett MD, [facility] 12/11/18 1044 1648 1648 Eliceo Burkett MD, [facility] /EPI
--- NOTE | 2018-12-11 10:47 | EKG ---
[place] [address] ELECTROCARDIOGRAM REPORT Name: JDCINTHYA Room: [address] ADM IN M.R.#: [id number] Admission: 12/10/18 Attend Phys: Eliceo Burkett MD, F Discharge: Date of : 48 Report #: [id number] THIS REPORT FOR: //name// [facility] Test Date: 2018-12-10 Test Time: 18:35:51 Pat Name: CINTHYA MILES Department: Room: [address] Gender: M Marine Superintendent: EZE : 1950 Requested By: Eliceo Burkett Order Number: [id number] Todd MD: Eliceo Burkett Measurements Intervals [place] Rate: 70 P: 56 DE: 204 QRS: -3 QRSD: 111 T: 27 QT: 418 QTc: 452 Interpretive Statements Sinus rhythm Multiple premature complexes, vent & supraven Inferior infarct, old Electronically Signed On 12-11-2018 10:46:49 CDT by Eliceo Burkett [email or web address] <ELECTRONICALLY SIGNED> By: Eliceo Burkett MD, [facility] 12/11/18 1046 34 34 Eliceo Burkett MD, FACC /EPI
--- NOTE | 2018-12-11 10:54 | EKG ---
[place] [address] ELECTROCARDIOGRAM REPORT Name: CINTHYA MILES ANTONI Room: [address] ADM IN M.R.#: [id number] Admission: 12/10/18 Attend Phys: Eliceo Burkett MD, F Discharge: Date of : 48 Report #: [id number] THIS REPORT FOR: //name// [facility] Test Date: 2018-12-11 Test Time: 08:07:15 Pat Name: CINTHYA MILES Department: Room: [address] Gender: M Family Caseworker: : 1950 Requested By: Eliceo Burkett Order Number: [id number] Reading MD: Eliceo Burkett Measurements Intervals [place] Rate: 63 P: 51 [place]: 193 QRS: -22 QRSD: 111 T: 24 QT: 429 QTc: 440 Interpretive Statements Sinus rhythm Abnormal R-wave progression, early transition Inferior infarct, old Baseline wander in lead(s) II,III,aVR,aVF Electronically Signed On 12-11-2018 10:53:42 CDT by Eliceo Burkett [email or web address] <ELECTRONICALLY SIGNED> By: Eliceo Burkett MD, [facility] 12/11/18 1053 0807 0807 Eliceo Burkett MD, [facility] /EPI
[2018-12-11 14:10] LABS: GLYCOHEMOGLOBIN (HGB A1C) 8.4 % (4.8-5.6)
--- NOTE | 2018-12-11 14:39 | CARD ---
[address] [address] CARDIAC CATH REPORT Name: CINTHYA MILES Room: 001-P ADM IN M.R.#: [id number] Admission: 12/10/18 Attend Phys: Eliceo Burkett MD, F Discharge: Date of : 48 Report #: [id number] THIS REPORT FOR: //name// APPROVED REPORT Study performed: 12/10/2018 16:21:21 Patient Details Patient Status: ED Room #: The patient is a 68 year-old male Event Personnel Eliceo Burkett Cloud Developer, Nida Min, Joe Rinaldi (R) Afsaneh Patrick Brad CLINICAL RESOURCE MANAGER Monitor Procedures Performed Left Heart Cath w/or w/o Coronaries Indication STEMI , Chest pain Risk Factors Hypercholesterolemia, Hypertension, Diabetes Previous Procedures/Diagnoses Previous PCI, Previous KS Admission/Lab Medications/Medications given during procedure Glycoprotein IllbIlla Inhibitors, Heparin Unfract. Procedure Narrative The patient was brought emergently to the Cardiac Catheterization Laboratory and was prepped and draped in a sterile manner. The right wrist was infiltrated with 1% Lidocaine subcutaneous anesthesia. A Slender Glidesheath sheath was inserted into the right radial artery. Coronary angiography was performed using coronary diagnostic catheters. The right coronary system was accessed and visualized with a Diagnostic JR4 catheter. The left coronary system was accessed and visualized with a Diagnostic JL4 catheter. The left ventricle was accessed and visualized with a Diagnostic Angled Pigtail catheter. Left ventricular/Aortic Valve gradient assessed via catheter pullback. Left ventriculogram was performed in CONN projection. Closure device was deployed with a 6 Fr vascband. The patient tolerated the procedure well [place] [address] CARDIAC CATH REPORT Name: CINTHYA MILES Room: [address] [facility] IN [facility]#: [id number] Admission: 12/10/18 Attend Phys: Eliceo Burkett MD, F Discharge: Date of : 48 Report #: [id number] associated with the procedure. There was no hematoma. Intraoperative Conscious Sedation Sedation start time: 17:20 Case end Time: 17:39 Fentanyl 25 mcg Versed 1 mg Fluoro Time: 8 minutes Dose: DAP 325618 cGycm2 2287 mGy Contrast Type and Amount: Visipaque 230 ml Coronary Angiography The patient's coronary anatomy is right dominant. Diagnostic Cath Left Main 0% stenosis LAD proximal stent with 0% stenosis. 70% apical stenosis noted Diagonal 1 60% proximal stenosis OM2 60% proximal stenosis, and mid stent with 0% stenosis Right Coronary Proximal stent acutely occluded. Mid stent with 90% stenosis with thrombus. Left Ventriculography The left ventricle is mild to moderately dilated in size with abnormal contractility. The left ventricular ejection fraction is estimated to be 25-30%. Left ventricular wall motion abnormalities are present. There is no mitral insufficiency. Severe hypokinesis noted of the inferior wall and akinesis noted of the distal anteroapical wall Hemodynamics The aortic pressure is 148/89 mmHg with a mean of 115 mmHg. The left ventricular pressure is 134/20 mmHg with a mean of mmHg. The left ventricular end diastolic pressure is 24 mmHg. There was no gradient across the aortic valve upon pullback. Pullback from the left ventricle to the aorta revealed no gradient across the aortic valve. PCI Technique Lesion Anticoagulation was achieved with Heparin. bolus of IV aggrastat given Percutaneous coronary intervention was performed on the mid right coronary artery. The lesion stenosis prior to intervention was 100% with KEN 0 flow. A 6FR JCR 4 100CM Guide Catheter was used to engage the rca ostium. A IG: BMW 190cm Interventional Guidewire was [place] [address] CARDIAC CATH REPORT Name: CINTHYA MILES Room: [address] IN [facility]#: [id number] Admission: 12/10/18 Attend Phys: Eliceo Burkett MD, F Discharge: Date of : 48 Report #: [id number] BALLOON DILATION A Balloon catheter Trek RX 2.5 X 8 was inserted and inflated up to 16.00atm for 13seconds. Repeat angiography revealed the following post-dilatation results: 40% stenosis. STENT DEPLOYMENT A drug-eluting stent Johnston RX Stent 3.0X15mm was inserted and inflated up to 11.00atm for 14seconds. Repeat angiography revealed the following post-stent deployment results: 0% stenosis. Additional Inflation: 13.00atm for 12seconds. Final angiography reveals 0 % stenosis with KEN 3 flow. Conclusion 1. LVEF 25-30% 2. No restenosis of stent in proximal lad, but 70% stenosis of apical lad 3. No restenosis of stent in 2nd OM branch 3. Acute occlusion of stent in proximal rca 4. successful placement of drug eluting stent in mid rca Recommendations Consider switching from clopidogrel to prasugrel. <ELECTRONICALLY SIGNED> By: Eliceo Burkett MD, [facility] 12/11/18 1439 1439 1439Eliceo Burkett MD, FACC /INF
--- NOTE | 2018-12-11 15:59 | CON ---
[address] [address] CONSULTATION Name: JD,CINTHYA CORRALES Room: [address] ADM IN M.R.#: [id number] Admission: 12/10/18 Attend Phys: Eliceo Burkett MD, F Discharge: Date of : 48 Report #: [id number] THIS REPORT FOR: //name// CC: Eliceo Burkett [facility] physician/PCP DATE OF SERVICE: 12/10/2018 CARDIOLOGY CONSULTATION HISTORY OF PRESENT ILLNESS: The patient is a 68-year-old single white male who came into the Emergency Room complaining of chest pain. The patient has an extensive past medical history. He had previous stenting of his right coronary artery in 2012. He had another stent placed here at [facility] in 2015. He presented in 2016 with an inferior STEMI after stopping his aspirin and Plavix. He had another drug-eluting stent placed in the proximal and distal right coronary artery. He then presented in 12/2017 with an acute lateral STEMI. I performed an emergent cardiac catheterization in 12/2017 that showed no restenosis in the stent in the LAD, apical LAD had an 80% stenosis, there was a 90% narrowing of the second marginal branch, the stent in the right coronary artery had no restenosis. Ejection fraction is 35% with apical akinesia. I then placed a new bare metal stent in the marginal branch of the circumflex. I performed PTCA of the distal right coronary artery with no stenting. He has actually done fairly well since that time, although he was admitted here in April with recurrent chest pain and back pain. He was admitted here in November of this year with chest pain and it was decided to treat the patient medically. He states he was doing well until this afternoon about an hour prior to admission he developed chest pain, diaphoresis, shortness of breath. Paramedics were called. He was found to be having acute inferior STEMI. He was brought here to [facility] by ambulance. On arrival, he continued to have chest pain. PAST MEDICAL HISTORY: Significant for 2 knee surgeries, diabetes, hypertension, hyperlipidemia, and COPD. MEDICATIONS: On admission includes metformin, insulin, albuterol, Symbicort, carvedilol, lisinopril. He is not on aspirin. He takes Lipitor and Plavix. ALLERGIES: HE HAS INTOLERANCE TO CODEINE AND MORPHINE. FAMILY HISTORY: Positive for heart disease. SOCIAL HISTORY: He is , lives in [place]. 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 Quit smoking years ago. No alcohol abuse. REVIEW OF SYSTEMS: He is overweight, standing 6 feet 2 inches, weighing 350 pounds. He has a history of asthma. No history of peptic ulcer disease, [place] [address] CONSULTATION Name: CINTHYA MILES Room: [address] IN M.R.#: [id number] Admission: 12/10/18 Attend Phys: Eliceo Burkett MD, F Discharge: Date of : 48 Report #: [id number] disease, kidney disease, cancer, psychiatric illness, chronic skin condition. PHYSICAL EXAMINATION: GENERAL: Revealed an obese elderly male in acute distress secondary to chest pain. VITAL SIGNS: Blood pressure 140/80, pulse is 90. HEENT: He is anicteric. Conjunctivae pink. Mucous membranes moist. NECK: Veins were difficult to assess due to obesity. No carotid bruits. CHEST: Clear to auscultation. CARDIOVASCULAR: Regular rate and rhythm, no murmur. ABDOMEN: Obese. EXTREMITIES: Had trace edema. SKIN: Moist and warm. NEUROLOGIC: Nonfocal. LABORATORY DATA: His ECG showed a sinus rhythm with inferior ST segment elevation. His lab work, sodium 141, potassium 3.8, creatinine 1.2, glucose 280. Liver function studies were normal. His troponin is 0.06. BNP 240. White blood cell count 14.2, hemoglobin 14.4. The patient had a nuclear stress test last April that showed ejection fraction 49%, fixed inferior defect, no reversible defects. He had an echocardiogram done last December, a year ago that showed ejection fraction 60% with left atrial enlargement. IMPRESSION RECOMMENDATIONS: 1. Acute inferior ST elevation myocardial infarction. Recommend urgent cardiac catheterization. 2. Diabetes. 3. History of cardiomyopathy. 4. Morbid obesity. 5. Chronic obstructive pulmonary disease. The time spent doing examination and assessment of the patient was from 04:45 to 06:00 p.m., a total of 1 hour and 15 minutes. <ELECTRONICALLY SIGNED> By: Eliceo Burkett MD, [facility] 12/11/18 1559 1816 1350Davijaved Brukett MD, FAC /nt
[2018-12-12 04:00] VITALS: BP 110/59
[2018-12-12 05:43] LABS: CALCIUM 8.9 mg/dL (8.5-10.1); CREATININE 0.9 mg/dL (0.6-1.3); POTASSIUM 4.6 mmol/L (3.5-5.1)
[2018-12-12 05:46] LABS: HEMATOCRIT 41.2 % (42.0-52.0); HEMOGLOBIN 13.6 gm/dL (14.0-18.0); MCH 27.9 pg (26.0-34.0); MCHC 33.1 g/dL (28.0-37.0); MCV 84.3 fL (80.0-100.0); MPV 8.4 fl. (7.2-11.1); RBC 4.89 mil/uL (4.50-6.00); RDW-CV 15.6 % (10.5-14.5); WBC 9.2 thou/uL (4.0-11.0)
[2018-12-12 05:54] LABS: TROPONIN-I LEVEL 18.01 ng/mL (<0.06)
[2018-12-12 07:30] VITALS: BP 151/87
[2018-12-12 12:37] VITALS: BP 108/64
[2018-12-12 15:27] VITALS: BP 104/66
[2018-12-12] MEDS ORDERED: SPIRONOLACTONE25 M1 PO (15:54)
--- NOTE | 2018-12-14 16:49 | EKG ---
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[place] : 1950 Requested By: Eliceo Burkett Order Number: [id number] Reading MD: Gregory Allen Measurements Intervals [place] Rate: 130 P: 0 [place]: QRS: -24 QRSD: 99 T: -17 QT: 326 QTc: 480 Interpretive Statements SUPRAVENTRICULAR TACHYCARDIA or atrial flutter with 2:1 block Inferoposterior infarct, recent Compared to ECG 12/11/2018 08:07:15 Sinus rhythm no longer present Myocardial infarct finding still present Electronically Signed On 12-14-2018 16:49:31 CDT by Gregory Allen [email or web address] <ELECTRONICALLY SIGNED> By: Gregory Allen MD, [facility] 12/14/18 1649 2321 2321 Gregroy Allen MD, [facility] /EPI
== END 2018-12-12 16:16 | disposition home or self-care (01) | DRG 246 ==
LOC: M.CL 16:28 → M.ERS 16:28 → M.CL 16:55 → M.ICU 17:47 → M.TBA-ER 17:47 → M.ICU 17:59 → M.2W 12-11 20:35
PROVIDERS: Emergency Medicine Emergency Medical Services; Family Medicine; ADMIT Internal Medicine Cardiovascular Disease
PROC: B215YZZ Fluoroscopy of Left Heart using Other Contrast (ICD-10-PCS; principal; 2018-12-10)
PROC: B211YZZ Fluoroscopy of Multiple Coronary Arteries using Other Contrast (ICD-10-PCS; principal; 2018-12-10)
PROC: 4A023N7 Measurement of Cardiac Sampling and Pressure, Left Heart, Percutaneous Approach (ICD-10-PCS; principal; 2018-12-10)
PROC: 027034Z Dilation of Coronary Artery, One Artery with Drug-eluting Intraluminal Device, Percutaneous Approach (ICD-10-PCS; principal; 2018-12-10)
DX: I21.19 ST elevation (STEMI) myocardial infarction involving other coronary artery of inferior wall (principal); I50.21 Acute systolic (congestive) heart failure; I50.42 Chronic combined systolic (congestive) and diastolic (congestive) heart failure; I42.9 Cardiomyopathy, unspecified; Z68.42 Body mass index [BMI] 45.0-49.9, adult; E66.01 Morbid (severe) obesity due to excess calories; E11.9 Type 2 diabetes mellitus without complications; M19.90 Unspecified osteoarthritis, unspecified site; F41.9 Anxiety disorder, unspecified; F32.9 Major depressive disorder, single episode, unspecified; J44.9 Chronic obstructive pulmonary disease, unspecified; Z96.652 Presence of left artificial knee joint; F41.1 Generalized anxiety disorder; I25.10 Atherosclerotic heart disease of native coronary artery without angina pectoris; E11.40 Type 2 diabetes mellitus with diabetic neuropathy, unspecified; I48.91 Unspecified atrial fibrillation; E78.5 Hyperlipidemia, unspecified; I24.9 Acute ischemic heart disease, unspecified; G89.29 Other chronic pain; I25.2 Old myocardial infarction; Z95.5 Presence of coronary angioplasty implant and graft; Z87.891 Personal history of nicotine dependence; Z82.49 Family history of ischemic heart disease and other diseases of the circulatory system; Z79.82 Long term (current) use of aspirin; Z79.899 Other long term (current) drug therapy

== ENCOUNTER → 2018-12-16 | Outpatient (CLI) | payer OTHER ==
[~2018-12-16] MED LIST changes: +EFFIENT10 MG PO; +SPIRONOLACTONE25 M1 PO
[2018-12-16 12:00] LABS: CALCIUM 9.3 mg/dL (8.5-10.1); CREATININE 1.3 mg/dL (0.6-1.3); POTASSIUM 4.6 mmol/L (3.5-5.1)
== END ==
LOC: M.LAB 11:20
PROVIDERS: Registered Nurse
DX: I25.5 Ischemic cardiomyopathy (principal)

== ENCOUNTER 2019-01-05 12:53 | Observation (INO) | payer OTHER ==
[~2019-01-05] VITALS: Ht 188 cm; Wt 156.0 kg
[~2019-01-05 12:53] MED LIST changes: -ROBAXIN 750 MG750 M1 PO; +ROBAXIN 750 MG750 MG PO
[2019-01-05 12:56] VITALS: BP 98/65
[2019-01-05 13:14] LABS: ABSOLUTE EOSINOPHILS 0.1 thou/uL (0.0-0.7); ABSOLUTE LYMPHOCYTES 1.1 thou/uL (0.8-5.3); ABSOLUTE MONOCYTES 0.7 thou/uL (0.0-1.2); ABSOLUTE NEUTROPHILS 9.3 thou/uL (1.6-8.1); BASOPHILS 0.3 %; EOSINOPHILS 0.8 %; HEMATOCRIT 38.7 % (42.0-52.0); HEMOGLOBIN 12.9 gm/dL (14.0-18.0); LYMPHOCYTES 9.8 %; MCH 28.2 pg (26.0-34.0); MCHC 33.4 g/dL (28.0-37.0); MCV 84.4 fL (80.0-100.0); MONOCYTES 6.1 %; MPV 8.5 fl. (7.2-11.1); NUCLEATED RBCS 0 /100WBC; PLATELET COUNT* 171 thou/uL (150-400); RBC 4.59 mil/uL (4.50-6.00); RDW-CV 16.4 % (10.5-14.5); WBC 11.2 thou/uL (4.0-11.0)
[2019-01-05 13:22] LABS: ANION GAP 10 mmol/L (7-16); BUN 25 mg/dL (7-18); CHLORIDE 104 mmol/L (98-107); CO2 23 mmol/L (21-32); CREATININE 1.2 mg/dL (0.6-1.3); GLUCOSE 185 mg/dL (70-99); POTASSIUM 4.4 mmol/L (3.5-5.1); SODIUM 137 mmol/L (136-145)
[2019-01-05 13:24] LABS: APTT 22.9 Seconds (25.0-31.3); PROTIME 10.4 Seconds (9.20-11.50)
[2019-01-05 13:36] LABS: ALBUMIN 3.4 g/dL (3.4-5.0); ALKALINE PHOSPHATASE 77 U/L (46-116); CK-MB MASS 2.7 ng/mL (<0.5-3.6); LIPASE 168 U/L (73-393); MAGNESIUM 1.4 mg/dL (1.8-2.4); NT-PRO BRAIN NAT PEPTIDE 825 pg/mL (<300); SGOT 19 U/L (15-37); SGPT 51 U/L (30-65); TOTAL BILIRUBIN 0.4 mg/dL (<0.1-1.0); TOTAL PROTEIN 6.5 g/dL (6.4-8.2); TROPONIN-I LEVEL <0.06 ng/mL (<0.06)
--- NOTE | 2019-01-05 16:28 | EKG ---
[place] [address] ELECTROCARDIOGRAM REPORT Name: CINTHYA MILES Room: [place] [address] ADM IN M.R.#: [id number] Admission: 01/05/19 Attend Phys: Keaton Benson MD Discharge: Date of : 48 Report #: [id number] THIS REPORT FOR: //name// [facility] ED Test Date: 2019-01-05 Test Time: 12:57:58 Pat Name: CINTHYA MILES Department: Room: 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1950 Requested By: Obey Veliz Order Number: [id number] MD: Michael Rios Measurements Intervals [place] Rate: 105 P: 28 SC: 216 QRS: -35 QRSD: 99 T: -10 QT: 354 QTc: 468 Interpretive Statements Sinus tachycardia Ventricular bigeminy Prolonged SC interval Inferior infarct, age indeterminate Compared to ECG 12/11/2018 23:21:42 Ventricular premature complex(es) now present First degree AV block now present Atrial flutter no longer present Supraventricular tachycardia no longer present 2:1 AV block no longer present Myocardial infarct finding still present Electronically Signed On 01-05-2019 16:27:57 CDT by Michael Rios [email or web address] <ELECTRONICALLY SIGNED> By: Michael Rios MD, [facility] 01/05/19 1627 1257 1257 Michael Rios MD, [facility] /EPI
[2019-01-05 18:22] VITALS: BP 100/63
[2019-01-05 18:46] VITALS: BP 100/63
[2019-01-05 20:00] VITALS: BP 107/59
[2019-01-05] MEDS ORDERED: LASIX 20 MG TAB20 MG PO (22:34)
[2019-01-05 23:00] VITALS: BP 125/65
[2019-01-06 04:00] VITALS: BP 100/59
[2019-01-06 05:13] LABS: HEMATOCRIT 35.4 % (42.0-52.0); HEMOGLOBIN 11.9 gm/dL (14.0-18.0); MCH 28.9 pg (26.0-34.0); MCHC 33.8 g/dL (28.0-37.0); MCV 85.4 fL (80.0-100.0); MPV 8.7 fl. (7.2-11.1); RBC 4.14 mil/uL (4.50-6.00); RDW-CV 16.3 % (10.5-14.5); WBC 8.7 thou/uL (4.0-11.0)
[2019-01-06 05:29] LABS: CALCIUM 8.6 mg/dL (8.5-10.1); MAGNESIUM 1.9 mg/dL (1.8-2.4); POTASSIUM 5.1 mmol/L (3.5-5.1)
[2019-01-06 08:00] VITALS: BP 126/81
[2019-01-06] MEDS ORDERED: IMDUR 30 MG TAB30 M1 PO (09:44)
[2019-01-06 11:01] VITALS: BP 126/81
--- NOTE | 2019-01-07 13:43 | EKG ---
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1950 Requested By: Obey Veliz Order Number: [id number] MD: Gregory Allen Measurements Intervals [place] Rate: 119 P: [place]: QRS: -36 QRSD: 95 T: -28 QT: 330 QTc: 465 Interpretive Statements Atrial fibrillation Multiple ventricular premature complexes Inferior infarct, age indeterminate Compared to ECG 01/05/2019 12:57:58 Sinus tachycardia no longer present First degree AV block no longer present Myocardial infarct finding still present Electronically Signed On 01-07-2019 13:43:05 CDT by Gregory Allen [email or web address] <ELECTRONICALLY SIGNED> By: Gregory Allen MD, [facility] 01/07/19 1343 1426 1426 Gregory Allen MD, [facility] /EPI
--- NOTE | 2019-01-08 12:50 | CON ---
[address] [address] CONSULTATION Name: CINTHYA MILES Room: [address] [place]#: [id number] Admission: 01/05/19 Attend Phys: Keaton Benson MD Discharge: 01/06/19 Date of : 48 Report #: [id number] THIS REPORT FOR: //name// CC: Estelle Benson DATE OF SERVICE: 01/05/2019 REQUESTING PHYSICIAN: Emergency Room. PRIMARY CARE PHYSICIAN: Estelle Marr MD OPERATING THEATRE TECHNICIAN: Peter Rajan MD HISTORY OF PRESENT ILLNESS: The patient is a 68-year-old male with a history of ischemic cardiomyopathy, numerous coronary interventions, had an episode of resting chest discomfort. It occurred while he was sitting down. He denies symptoms of palpitations or heart racing. He has a known history of atrial fibrillation, presents in a sinus rhythm. There are frequent PACs. He has been compliant with medical therapy, which includes, 2 anticoagulation medications. He denies associated symptoms of palpitations, heart racing, skipping, syncope or presyncope. He has not really been having any exertional symptoms, but does get exertional shortness of breath, but this is nothing near above baseline. He also has an underlying history of chronic obstructive pulmonary disease and has been a little bit more short of breath and coughing than usual. His nitroglycerin usage has been relatively sparse. His last episode requiring nitroglycerin, he thinks it was the first day of the month. PAST MEDICAL HISTORY: He has a history of paroxysmal atrial fibrillation. He is anticoagulated. He has an ischemic cardiomyopathy and numerous percutaneous coronary interventions. Last cardiac catheterization was 12/12/2017, which showed an occluded PDA branch of the RCA and single placement of a bare metal stent in the obtuse marginal branch with 70% stenosis and PTCA only of the PDA. EF was 35-40%. He has had prior coronary intervention to the right coronary artery in the acute setting in 2016. He has a previously placed stent in the left anterior descending coronary artery, which was widely patent. It is 2018 evaluation. He had a nuclear stress test in 2018, which did not show any evidence of ischemia. He has chronic obstructive pulmonary disease, hypertension and erectile dysfunction. FAMILY HISTORY: Positive for heart disease. SOCIAL HISTORY: He is a former smoker, 45-fpba-fasw history. ALLERGIES: HE HAS ALLERGIES TO [place]INE [place] [address] CONSULTATION Name: CINTHYA MILES [address] [id number] Admission: 01/05/19 Attend Phys: Keaton Benson MD Discharge: 01/06/19 Date of : 48 Report #: [id number] HOME MEDICATIONS: Fairly extensive includes albuterol, Atrovent, atorvastatin 80 mg daily, Symbicort, Coreg 12.5 mg p.o. b.i.d., Klonopin p.r.n., Effient 10 mg daily, insulin, Imdur 60 mg daily, lisinopril 5 mg daily, Protonix, Paxil, Xarelto 20 mg daily, Aldactone 25 mg daily and venlafaxine. REVIEW OF SYSTEMS: GASTROINTESTINAL: No hematemesis or melena. SKIN: Positive bruising, occasional cutaneous bleeding. GENITOURINARY: No dysuria or hematuria. NEUROLOGIC: No history of syncope or seizures. CARDIOVASCULAR: Positive dyspnea on exertion. Positive chest discomfort, no orthopnea, no PND. No palpitations. SKIN: No rash. EYES: Denies any blurred vision or loss of vision. THROAT: Denies any dysphagia. ENDOCRINE: Positive diabetes. Positive obesity. Positive hyperlipidemia. PHYSICAL EXAMINATION: VITAL SIGNS: Blood pressure is in the 100s/50s in his sinus rhythm with PACs, heart rate in the 80s, temperature 36.5 and weight is 157 kilograms. GENERAL: This is a morbidly obese elderly male who is alert, oriented, in no apparent distress. HEENT: Eyes are intact. No facial asymmetry. NECK: Supple. CARDIOVASCULAR: Regular, I cannot hear murmur or S3. LUNGS: Coarse breath sounds with expiratory wheezes bilaterally. ABDOMEN: Soft, obese, and nontender. EXTREMITIES: There is 1+ pretibial edema. NEUROLOGIC: There are no focal deficits. SKIN: Warm and dry. IMAGING DATA: Electrocardiogram shows sinus rhythm, conduction delay, left axis deviation, normal ST segments. LABORATORY DATA: Hemoglobin is 12.9, white blood cell count 11.2 and platelet count 171,000. INR is 1.0. Sodium is 137, potassium is 4.4, chloride 104, BUN 25, creatinine is 1.2, AST is 19 and ALT is 51. Troponin I is 0.06 x 2 sets. BNP is 825. Chest x-ray, CTA shows no filling defects in the pulmonary arteries to suggest pulmonary embolus. Chest x-ray shows no acute cardiopulmonary process and mild cardiomegaly. IMPRESSION AND PLAN: 1. Chest discomfort. Symptoms could be related to bronchitic etiology versus angina, possibly unstable. His initial cardiac troponin levels are normal. His ECG is unremarkable. We will continue with current medical therapy including [facility] [address] [place] [address] CONSULTATION Name: CINTHYA MILES Room: [address]#: [id number] Admission: 01/05/19 Attend Phys: Keaton Benson MD Discharge: 01/06/19 Date of : 48 Report #: [id number] his dual antiplatelet therapy. He will be admitted and we will check serial cardiac markers. At this point in time, given his morbid obesity, abnormal stress test at the end of 2017, I think it is reasonable to proceed with medical therapy if he rules out versus another imaging protocol. If he rules in then angiographic evaluation is recommended. 2. Chronic obstructive pulmonary disease exacerbation. I will continue aggressive pulmonary toilet. 3. Hypertension, stable. 4. Hyperlipidemia. Continue with statin. 5. History of prior coronary intervention. Recommend continuing with his apnea. 6. Paroxysmal atrial fibrillation. He has a high stroke risk. He will continue with his Xarelto. <ELECTRONICALLY SIGNED> By: Michael Rios MD, FACC 01/08/19 1250 1609 0339Michael Rios MD, FACC /nt
== END 2019-01-06 12:44 | disposition home or self-care (01) ==
LOC: M.ERS 12:53 → M.2W 14:50 → M.TBA-ER 14:50 → M.2W 14:50
PROVIDERS: Family Medicine; ADMIT Internal Medicine
DX: R07.89 Other chest pain (principal); J44.1 Chronic obstructive pulmonary disease with (acute) exacerbation; E78.5 Hyperlipidemia, unspecified; I25.10 Atherosclerotic heart disease of native coronary artery without angina pectoris; K21.9 Gastro-esophageal reflux disease without esophagitis; E11.649 Type 2 diabetes mellitus with hypoglycemia without coma; E66.01 Morbid (severe) obesity due to excess calories; N39.0 Urinary tract infection, site not specified; F41.9 Anxiety disorder, unspecified; F32.9 Major depressive disorder, single episode, unspecified; I25.2 Old myocardial infarction; F41.1 Generalized anxiety disorder; I13.0 Hypertensive heart and chronic kidney disease with heart failure and stage 1 through stage 4 chronic kidney disease, or unspecified chronic kidney disease; E11.22 Type 2 diabetes mellitus with diabetic chronic kidney disease; N18.2 Chronic kidney disease, stage 2 (mild); E11.40 Type 2 diabetes mellitus with diabetic neuropathy, unspecified; I50.42 Chronic combined systolic (congestive) and diastolic (congestive) heart failure; R42 Dizziness and giddiness; Z88.5 Allergy status to narcotic agent; Z95.5 Presence of coronary angioplasty implant and graft; Z87.891 Personal history of nicotine dependence

== ENCOUNTER 2019-01-25 08:51 | Emergency (ER) | payer OTHER ==
[~2019-01-25] VITALS: Ht 188 cm; Wt 152.0 kg
[~2019-01-25 08:51] MED LIST changes: +LASIX 20 MG TAB20 MG PO
[2019-01-25 09:16] LABS: ABSOLUTE LYMPHOCYTES 0.7 thou/uL (0.8-5.3); ABSOLUTE MONOCYTES 0.3 thou/uL (0.0-1.2); ABSOLUTE NEUTROPHILS 7.8 thou/uL (1.6-8.1); BASOPHILS 0.5 %; EOSINOPHILS 0.4 %; HEMATOCRIT 39.2 % (42.0-52.0); HEMOGLOBIN 13.4 gm/dL (14.0-18.0); LYMPHOCYTES 7.5 %; MCH 29.6 pg (26.0-34.0); MCHC 34.1 g/dL (28.0-37.0); MCV 86.7 fL (80.0-100.0); MONOCYTES 3.8 %; MPV 8.6 fl. (7.2-11.1); NUCLEATED RBCS 0 /100WBC; PLATELET COUNT* 146 thou/uL (150-400); POLYS 87.8 %; RBC 4.52 mil/uL (4.50-6.00); RDW-CV 18.3 % (10.5-14.5); WBC 8.9 thou/uL (4.0-11.0)
[2019-01-25 09:24] LABS: APTT 25.4 Seconds (25.0-31.3); PROTIME 10.1 Seconds (9.20-11.50)
[2019-01-25 09:32] LABS: ANION GAP 8 mmol/L (7-16); BUN 23 mg/dL (7-18); CALCIUM 9.4 mg/dL (8.5-10.1); CHLORIDE 103 mmol/L (98-107); CO2 28 mmol/L (21-32); CREATININE 1.1 mg/dL (0.6-1.3); GLUCOSE 222 mg/dL (70-99); POTASSIUM 4.4 mmol/L (3.5-5.1); SODIUM 139 mmol/L (136-145)
[2019-01-25 09:41] LABS: ALBUMIN 3.3 g/dL (3.4-5.0); NT-PRO BRAIN NAT PEPTIDE 325 pg/mL (<300); SGOT 20 U/L (15-37); SGPT 40 U/L (30-65); TOTAL BILIRUBIN 0.6 mg/dL (<0.1-1.0); TROPONIN-I LEVEL <0.06 ng/mL (<0.06)
[2019-01-25 10:08] VITALS: BP 96/57
[2019-01-25 12:34] LABS: ALKALINE PHOSPHATASE 74 U/L (46-116)
--- NOTE | 2019-01-25 17:59 | EKG ---
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1950 Requested By: Obey Veliz Order Number: [id number] MD: Peter Rajan Measurements Intervals [place] Rate: 87 P: RI: QRS: -47 QRSD: 112 T: -13 QT: 402 QTc: 484 Interpretive Statements Sinus rhythm with premature ventricular complexes Inferior infarct, age indeterminate Compared to ECG 01/05/2019 14:26:20 Ventricular premature complex(es) no longer present Myocardial infarct finding still present Electronically Signed On 01-25-2019 17:59:06 CDT by Peter Rajan [email or web address] <ELECTRONICALLY SIGNED> By: Peter Rajan MD, FAC 01/25/19 1759 0915 Peter Rajan MD, [facility] /EPI
== END 2019-01-25 10:08 | disposition home or self-care (01) ==
LOC: M.ERS 08:51
PROVIDERS: Family Medicine
DX: R53.1 Weakness (principal); J44.9 Chronic obstructive pulmonary disease, unspecified; E11.9 Type 2 diabetes mellitus without complications; M19.90 Unspecified osteoarthritis, unspecified site; E66.01 Morbid (severe) obesity due to excess calories; I50.42 Chronic combined systolic (congestive) and diastolic (congestive) heart failure; Z87.891 Personal history of nicotine dependence; Z88.5 Allergy status to narcotic agent

== ENCOUNTER 2019-06-13 17:03 | Inpatient (IN) | payer OTHER ==
[~2019-06-13] VITALS: Ht 188 cm; Wt 166.0 kg
[~2019-06-13 17:03] MED LIST changes: -LASIX 20 MG TAB20 MG PO
[2019-06-13 17:07] VITALS: BP 120/69
[2019-06-13 17:39] LABS: HEMATOCRIT 38.2 % (42.0-52.0); MCH 29.9 pg (26.0-34.0); MCHC 34.1 g/dL (28.0-37.0); MCV 87.5 fL (80.0-100.0); MPV 8.4 fl. (7.2-11.1); NUCLEATED RBCS 0 /100WBC; PLATELET COUNT* 173 thou/uL (150-400); RBC 4.36 mil/uL (4.50-6.00); RDW-CV 14.1 % (10.5-14.5); WBC 15.9 thou/uL (4.0-11.0)
[2019-06-13 17:52] LABS: APTT 31.2 Seconds (25.0-31.3); PROTIME 10.7 Seconds (9.20-11.50)
[2019-06-13 18:06] LABS: CALCIUM 8.8 mg/dL (8.5-10.1); CREATININE 1.4 mg/dL (0.6-1.3); POTASSIUM 4.1 mmol/L (3.5-5.1)
[2019-06-13 18:18] LABS: ALBUMIN 3.2 g/dL (3.4-5.0); MAGNESIUM 1.5 mg/dL (1.8-2.4); TOTAL BILIRUBIN 0.9 mg/dL (<0.1-1.0); TOTAL PROTEIN 7.5 g/dL (6.4-8.2)
[2019-06-13 18:20] LABS: ABSOLUTE LYMPHOCYTES 0.3 thou/uL (0.8-5.3); ABSOLUTE MONOCYTES 0.6 thou/uL (0.0-1.2); ABSOLUTE NEUTROPHILS 14.9 thou/uL (1.6-8.1); PLATELET ESTIMATE ADEQUATE
[2019-06-13 20:15] VITALS: BP 95/59
[2019-06-13 20:30] VITALS: BP 101/60
[2019-06-13] MEDS ORDERED: LEVEMIR100 UNIT/1 SUBQ (22:15)
[2019-06-14] VITALS (7 sets, daily range): BP systolic 83–152; BP diastolic 47–66
[2019-06-14 04:50] LABS: HEMATOCRIT 37.1 % (42.0-52.0); HEMOGLOBIN 12.1 gm/dL (14.0-18.0); MCH 28.9 pg (26.0-34.0); MCHC 32.5 g/dL (28.0-37.0); MPV 8.9 fl. (7.2-11.1); RBC 4.17 mil/uL (4.50-6.00); RDW-CV 14.2 % (10.5-14.5); WBC 11.8 thou/uL (4.0-11.0)
[2019-06-14 05:03] LABS: ALBUMIN 2.7 g/dL (3.4-5.0); CREATININE 1.4 mg/dL (0.6-1.3); POTASSIUM 4.3 mmol/L (3.5-5.1); TOTAL BILIRUBIN 0.6 mg/dL (<0.1-1.0); TOTAL PROTEIN 6.8 g/dL (6.4-8.2)
[2019-06-15 03:40] VITALS: BP 104/63
[2019-06-15 08:00] VITALS: BP 113/73
--- NOTE | 2019-06-15 10:49 | EKG ---
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 : 1950 Requested By: Federico Arredondo Order Number: [id number] MD: Peter Rajan Measurements Intervals [place] Rate: 121 P: 0 NC: 196 QRS: 3 QRSD: 102 T: 42 QT: 343 QTc: 487 Interpretive Statements Sinus tachycardia Atrial premature complex Inferior infarct, old Baseline wander in lead(s) V1,V3,V4 Compared to ECG 01/25/2019 09:15:31 Atrial premature complex(es) now present Sinus rhythm no longer present Ventricular premature complex(es) no longer present Myocardial infarct finding still present Electronically Signed On 06-15-2019 10:49:12 HIDE AND SKIN PROCESSING WORKER by Peter Rajan [email or web address] <ELECTRONICALLY SIGNED> By: Peter Rajan MD, FACC 06/15/19 1049 08 08 Peter Rajan MD, FAC /EPI
--- NOTE | 2019-06-15 11:01 | EKG ---
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 : 1950 Requested By: Ammy Anne Order Number: [id number] Todd MD: Peter Rajan Measurements Intervals [place] Rate: 122 P: [place]: QRS: -17 QRSD: 104 T: -20 QT: 332 QTc: 473 Interpretive Statements Atrial fibrillation Inferior infarct, age indeterminate Compared to ECG 01/25/2019 09:15:31 Sinus rhythm no longer present Ventricular premature complex(es) no longer present Myocardial infarct finding still present Electronically Signed On 06-15-2019 11:00:50 GRUBBER by Peter Rajan [email or web address] <ELECTRONICALLY SIGNED> By: Peter Rajan MD, FACC 06/15/19 1100 1648 1648 Peter Rajan MD, FAC /EPI
[2019-06-15 11:57] VITALS: BP 103/40
--- NOTE | 2019-06-15 15:07 | 2DMMODE ---
[place] [address] 2 D/M-MODE ECHOCARDIOGRAM Name: CINTHYA MILES ANTONI Room: [address] [facility] IN .#: [id number] Admission: 06/13/19 Attend Phys: Ammy calzada Sa Discharge: Date of : 48 Date of Service: 06/15/19 1507 Report #: [id number] THIS REPORT FOR: //name// APPROVED REPORT Study performed: 06/15/2019 10:05:45 EXAM: Comprehensive 2D, Doppler, and color-flow Echocardiogram Patient Location: In-Patient Room #: 209 Status: routine BSA: 2.76 HR: 92 bpm BP: 104/63 mmHg Rhythm: NSR Other Information Technically limited study due to body habitus, poor endocardial definition. Indications Atrial Fibrillation 2D Dimensions IVSd: 10.69 (7-11mm) LVOT Diam: 23.37 (18-24mm) LVDd: 61.00 mm PWd: 11.81 (7-11mm) Ascending Ao: 35.37 (22-36mm) LVDs: 39.42 (25-40mm) Aortic Root: 36.90 mm Volumes Left Atrial Volume (Systole) LA ESV Index: 43.00 mL/m2 Aortic Valve AoV Peak Nigel.: 1.60 m/s AO Peak Gr.: 10.18 mmHg LVOT Max P.86 mmHg AO Mean Gr.: 5.25 mmHg LVOT Mean P.01 mmHg LVOT Max V: 1.21 m/s AO V2 VTI: 30.26 cm LVOT Mean V: 0.80 m/s SRIKANTH (VTI): 3.02 cm2 LVOT V1 VTI: 21.28 cm Mitral Valve E/A Ratio: 1.00 MV Decel. Time: 188.55 [place] [address] 2 D/M-MODE ECHOCARDIOGRAM Name: CINTHYA MILES Room: [address] IN M.R.#: [id number] Admission: 06/13/19 Attend Phys: Ammy calzada Sa Discharge: Date of : 48 Date of Service: 06/15/19 1507 Report #: [id number] MV E Max Nigel.: 0.80 m/s MV PHT: 54.68 ms MVA (PHT): 4.02 cm2 TDI E/Lateral E': 5.71 E/Medial E': 4.44 Medial E' Nigel.: 0.18 m/s Lateral E' Nigel.: 0.14 m/s Pulmonary Valve PV Peak Nigel.: 1.22 m/s PV Peak Gr.: 5.95 mmHg Tricuspid Valve RAP Estimate: 5.00 mmHg TR Peak Gr.: 31.79 mmHg RVSP: 36.00 mmHg PA Pressure: 36.00 mmHg Left Ventricle The left ventricle is normal size. There is normal LV segmental wall motion. There is normal left ventricular wall thickness. Left ventricular systolic function is normal. LVEF is 55-60%. Transmitral Doppler flow pattern suggests restrictive physiology. Right Ventricle The right ventricle is normal size. The right ventricular systolic function is normal. Atria Left atrium is mildly dilated. The right atrium size is normal. Aortic Valve The aortic valve is normal in structure. No aortic regurgitation is present. There is no aortic valvular stenosis. Mitral Valve The mitral valve is normal in structure. There is no mitral valve regurgitation noted. No evidence of mitral valve stenosis. Tricuspid Valve The tricuspid valve is normal in structure. Mild tricuspid regurgitation. The RVSP is 40-45 mmHg. Pulmonic Valve The pulmonary valve is normal in structure. There is no pulmonic [place] [address] 2 D/M-MODE ECHOCARDIOGRAM Name: CINTHYA MILES Room: [address] IN .R.#: [id number] Admission: 06/13/19 Attend Phys: Ammy calzada Sa Discharge: Date of : 48 Date of Service: 06/15/19 1507 Report #: [id number] Great Vessels The aortic root is normal in size. IVC is normal in size and collapses >50% with inspiration. Pericardium There is no pericardial effusion. <Conclusion> The left ventricle is normal size. There is normal left ventricular wall thickness. LVEF is 55-60%. Transmitral Doppler flow pattern suggests restrictive physiology. Left atrium is mildly dilated. Mild tricuspid regurgitation. The RVSP is 40-45 mmHg. <ELECTRONICALLY SIGNED> By: Peter Rajan MD, FACC 06/15/19 1507 1507 1507 Peter Rajan MD, FACC /INF
[2019-06-15 16:45] VITALS: BP 92/46
[2019-06-15 20:34] VITALS: BP 115/73
[2019-06-16] VITALS: BP 99/51
[2019-06-16 03:05] LABS: HEMATOCRIT 33.4 % (42.0-52.0); HEMOGLOBIN 11.2 gm/dL (14.0-18.0); MCH 29.1 pg (26.0-34.0); MCHC 33.4 g/dL (28.0-37.0); MCV 87.2 fL (80.0-100.0); MPV 8.8 fl. (7.2-11.1); RBC 3.83 mil/uL (4.50-6.00); WBC 13.8 thou/uL (4.0-11.0)
[2019-06-16 03:26] LABS: CALCIUM 8.2 mg/dL (8.5-10.1); CREATININE 1.3 mg/dL (0.6-1.3); MAGNESIUM 2.1 mg/dL (1.8-2.4); POTASSIUM 4.3 mmol/L (3.5-5.1)
[2019-06-16 04:00] VITALS: BP 110/67
[2019-06-16 08:00] VITALS: BP 107/38
--- NOTE | 2019-06-16 08:42 | CON ---
[address] [address] CONSULTATION Name: JDCINTHYA CORRALES Room: [address] IN M.R.#: [id number] Admission: 06/13/19 Attend Phys: Ammy Roman Discharge: Date of : 48 Report #: [id number] THIS REPORT FOR: //name// CC: Estelle Anne DATE OF SERVICE: 06/15/2019 CARDIOLOGY CONSULTATION INDICATION: Paroxysmal atrial fibrillation. HISTORY OF PRESENT ILLNESS: The patient is a very pleasant 69-year-old gentleman well known to myself. He has a history of an ischemic cardiomyopathy with an ejection fraction of 25-30%. He has had multiple interventions in the past. He was admitted to the hospital with COPD exacerbation and community-acquired pneumonia with sepsis. The patient has been receiving appropriate pulmonary care and IV antibiotics. On the second day of his hospitalization, he had recurrence of atrial fibrillation. The patient was placed on heparin drip and IV amiodarone. He did convert to normal sinus rhythm on amiodarone. He is not having any chest pain to suggest angina. He is without other cardiac complaint. PAST MEDICAL HISTORY: 1. Coronary artery disease. 2. Ischemic cardiomyopathy. 3. COPD. 4. Type 2 diabetes mellitus. 5. GERD. 6. Hypertension. 7. Obesity. 8. Paroxysmal atrial fibrillation. 9. Right knee repair x 2. 10. Left hand carpal tunnel repair. 11. Left knee replacement. ALLERGIES: CODEINE and MORPHINE. HOME MEDICATIONS: Terazosin 5 mg p.o. b.i.d., lispro insulin 14 units at breakfast and 24 units at lunch, spironolactone 25 mg daily, alprazolam 0.5 mg b.i.d. p.r.n., ropinirole 0.25 mg t.i.d., metformin 1000 mg b.i.d., albuterol 2 puffs p.r.n., atorvastatin 40 mg at bedtime, Nitrostat p.r.n., DuoNeb inhaler q.6 hours p.r.n., Spiriva HandiHaler 1 capsule daily, carvedilol 6.25 mg b.i.d., methocarbamol 750 mg p.o. q.8 hours, Atrovent 2 puffs q.i.d., paroxetine 10 mg daily, Protonix 40 mg daily, Incruse Ellipta 62.5 mcg inhaled daily, Claritin [address] [place] [address] CONSULTATION Name: CINTHYA MILES Room: [address] IN .R.#: [id number] Admission: 06/13/19 Attend Phys: Ammy Roman Discharge: Date of : 48 Report #: [id number] p.o. daily, lispro insulin 24 units at dinner, [place] 5/325 one tablet q.6 hours p.r.n., Naprosyn 500 mg b.i.d., Effient 10 mg daily and furosemide 20 mg p.o. b.i.d. FAMILY HISTORY: Positive for coronary artery disease. SOCIAL HISTORY: The patient quit smoking remotely. Drinks alcohol occasionally. PHYSICAL EXAMINATION: VITAL SIGNS: Blood pressure 104/63, pulse 67 and regular. GENERAL: The patient is a morbidly obese male who is in no distress. HEENT: The patient is wearing glasses. Extraocular muscles are intact. Mucous membranes are moist. NECK: Shows no obvious jugular venous distention. There are no carotid bruits. CHEST: Reveals diffuse expiratory wheezing throughout. CARDIOVASCULAR: Reveals a regular rhythm without gallop or murmur. ABDOMEN: Reveals a protuberant abdomen, soft and nontender. EXTREMITIES: Shows no significant edema. SKIN: Dry. LABORATORY DATA: Reviewed. Sodium 138, potassium 4.3, chloride 103, bicarbonate 23, BUN 25, creatinine 1.4, serum glucose 466. LFTs within normal limits. Troponins less than 0.06. NT-proBNP 776. White blood cell count 11.8, hemoglobin 12.1, platelet count 162,000. IMPRESSION AND RECOMMENDATIONS: 1. Coronary artery disease, presently stable. He is not having any angina. Continue medications as outlined above. 2. Ischemic cardiomyopathy, presently compensated. Continue medications as outlined above. 3. Recurrent atrial fibrillation, now in sinus rhythm. Would switch to p.o. amiodarone. He is not anticoagulated due to significant epistaxis in the past with anticoagulation. 4. Chronic obstructive pulmonary disease exacerbation with pneumonia, on appropriate treatment at this time. 5. Hypertension. Blood pressure low normal presently on current cardiac regimen. No adjustments made at this time. 6. Dyslipidemia. Continue atorvastatin at current dose. 7. Type 2 diabetes mellitus per hospitalist. 8. Hypercoagulable state due to atrial fibrillation as outlined above. <ELECTRONICALLY SIGNED> By: Peter Rajan MD, FACC 06/16/19 0842 0953 1052Micsidney Rajan MD, FACC /nt
[2019-06-16 12:00] VITALS: BP 112/64
[2019-06-16 16:00] VITALS: BP 126/53
[2019-06-16 20:36] VITALS: BP 112/63
[2019-06-17] VITALS (8 sets, daily range): BP systolic 83–135; BP diastolic 44–76
[2019-06-18] VITALS: BP 114/65
[2019-06-18 04:00] VITALS: BP 130/68
[2019-06-18 05:50] LABS: CALCIUM 7.8 mg/dL (8.5-10.1); CREATININE 1.2 mg/dL (0.6-1.3); MAGNESIUM 2.1 mg/dL (1.8-2.4); POTASSIUM 4.6 mmol/L (3.5-5.1)
[2019-06-18 07:00] VITALS: BP 111/67
[2019-06-18 11:37] VITALS: BP 120/66
[2019-06-18] MEDS ORDERED: LASIX 20 MG TAB20 MG PO ×2 (11:39→14:26)
[2019-06-18] MEDS ORDERED: IMDUR 60 MG TAB60 M1 PO (11:39)
[2019-06-18] MEDS ORDERED: BENZONATATE100 MG PO (11:39)
[2019-06-18] MEDS ORDERED: AZITHROMYCIN 2250 MG PO ×2 (11:39→13:56)
[2019-06-18] MEDS ORDERED: CEFDINIR300 MG PO (11:39)
[2019-06-18] MEDS ORDERED: SPIRONOLACTONE25 MG PO (11:39)
[2019-06-18] MEDS ORDERED: PREDNISONE 10 M10 MG PO (11:39)
[2019-06-18] MEDS ORDERED: PACERONE 200 M200 M1 PO (11:39)
[2019-06-18 14:03] VITALS: BP 120/66
== END 2019-06-18 16:02 | disposition home or self-care (01) | DRG 871 ==
LOC: M.ERS 17:03 → M.TBA-ER 18:39 → M.2W 18:39
PROVIDERS: Emergency Medicine Emergency Medical Services; Internal Medicine; ADMIT Family Medicine
DX: A41.9 Sepsis, unspecified organism (principal); J96.21 Acute and chronic respiratory failure with hypoxia; I50.43 Acute on chronic combined systolic (congestive) and diastolic (congestive) heart failure; N17.0 Acute kidney failure with tubular necrosis; J15.9 Unspecified bacterial pneumonia; Z68.42 Body mass index [BMI] 45.0-49.9, adult; J44.1 Chronic obstructive pulmonary disease with (acute) exacerbation; J44.0 Chronic obstructive pulmonary disease with (acute) lower respiratory infection; I13.0 Hypertensive heart and chronic kidney disease with heart failure and stage 1 through stage 4 chronic kidney disease, or unspecified chronic kidney disease; D68.69 Other thrombophilia; R65.20 Severe sepsis without septic shock; I25.10 Atherosclerotic heart disease of native coronary artery without angina pectoris; M19.90 Unspecified osteoarthritis, unspecified site; E66.01 Morbid (severe) obesity due to excess calories; F32.9 Major depressive disorder, single episode, unspecified; Z96.652 Presence of left artificial knee joint; F41.1 Generalized anxiety disorder; E11.40 Type 2 diabetes mellitus with diabetic neuropathy, unspecified; E11.22 Type 2 diabetes mellitus with diabetic chronic kidney disease; N18.2 Chronic kidney disease, stage 2 (mild); I25.5 Ischemic cardiomyopathy; K21.9 Gastro-esophageal reflux disease without esophagitis; I48.0 Paroxysmal atrial fibrillation; E78.5 Hyperlipidemia, unspecified; Z60.2 Problems related to living alone; Z91.19 Patient's noncompliance with other medical treatment and regimen; Z95.5 Presence of coronary angioplasty implant and graft; Z87.01 Personal history of pneumonia (recurrent); Z86.010 Personal history of colon polyps; I25.2 Old myocardial infarction; Z88.6 Allergy status to analgesic agent; Z79.899 Other long term (current) drug therapy; Z79.4 Long term (current) use of insulin; Z79.84 Long term (current) use of oral hypoglycemic drugs; Z79.51 Long term (current) use of inhaled steroids; Z82.49 Family history of ischemic heart disease and other diseases of the circulatory system; Z87.891 Personal history of nicotine dependence; Z99.81 Dependence on supplemental oxygen; I27.20 Pulmonary hypertension, unspecified; Z23 Encounter for immunization

== ENCOUNTER 2019-07-08 18:13 | Inpatient (IN) | payer OTHER ==
[~2019-07-08] VITALS: Ht 188 cm; Wt 152.9 kg
[~2019-07-08 18:13] MED LIST changes: +BENZONATATE100 MG PO; +IMDUR 60 MG TAB60 M1 PO; +LASIX 20 MG TAB20 MG PO; +LEVEMIR100 UNIT/1 SUBQ; +PACERONE 200 M200 M1 PO; +PREDNISONE 10 M10 MG PO; +SPIRONOLACTONE25 MG PO
[2019-07-08 18:21] VITALS: BP 97/47
[2019-07-08 18:47] LABS: HEMATOCRIT 40.7 % (42.0-52.0); HEMOGLOBIN 13.6 gm/dL (14.0-18.0); MCH 28.8 pg (26.0-34.0); MCHC 33.5 g/dL (28.0-37.0); MCV 86.1 fL (80.0-100.0); MPV 9.3 fl. (7.2-11.1); NUCLEATED RBCS 0 /100WBC; PLATELET COUNT* 120 thou/uL (150-400); RBC 4.73 mil/uL (4.50-6.00); RDW-CV 14.9 % (10.5-14.5); WBC 12.2 thou/uL (4.0-11.0)
[2019-07-08 18:53] LABS: CALCIUM 9.7 mg/dL (8.5-10.1); CREATININE 1.8 mg/dL (0.6-1.3)
[2019-07-08 18:55] LABS: APTT 19.5 Seconds (25.0-31.3)
[2019-07-08 19:02] LABS: ALBUMIN 3.2 g/dL (3.4-5.0); CK-MB MASS 2.4 ng/mL (<0.5-3.6); MAGNESIUM 1.8 mg/dL (1.8-2.4); TOTAL BILIRUBIN 0.6 mg/dL (<0.1-1.0); TOTAL PROTEIN 6.3 g/dL (6.4-8.2)
[2019-07-08 19:17] LABS: ABSOLUTE NEUTROPHILS 11.5 thou/uL (1.6-8.1); PLATELET ESTIMATE DECREASED
[2019-07-08 19:18] LABS: ABSOLUTE EOSINOPHILS 0.1 thou/uL (0.0-0.7); ABSOLUTE LYMPHOCYTES 0.2 thou/uL (0.8-5.3); ABSOLUTE MONOCYTES 0.4 thou/uL (0.0-1.2); ANISOCYTOSIS Occasional
[2019-07-08 20:24] VITALS: BP 104/49
[2019-07-08 21:00] VITALS: BP 74/44
[2019-07-08] MEDS ORDERED: LASIX 40 MG TAB40 MG PO (21:22)
[2019-07-08 23:33] LABS: CALCIUM 8.9 mg/dL (8.5-10.1); CREATININE 2.3 mg/dL (0.6-1.3); POTASSIUM 5.7 mmol/L (3.5-5.1)
[2019-07-09] VITALS: BP 100/46
[2019-07-09 04:00] VITALS: BP 113/68
[2019-07-09 08:11] VITALS: BP 113/65
[2019-07-09 11:43] VITALS: BP 117/68
--- NOTE | 2019-07-09 13:40 | EKG ---
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 : 1950 Requested By: Tomasz Markham Order Number: [id number] Todd MD: Peter Rajan Measurements Intervals [place] Rate: 71 P: 129 CO: 257 QRS: 31 QRSD: 126 T: 32 QT: 406 QTc: 442 Interpretive Statements Sinus rhythm Prolonged [place] interval Nonspecific intraventricular conduction delay Inferior infarct, old Baseline wander in lead(s) I,aVL Compared to ECG 06/14/2019 16:48:51 First degree AV block now present Intraventricular conduction delay now present Atrial fibrillation no longer present Myocardial infarct finding still present Electronically Signed On 07-09-2019 13:40:09 CHANNELER OUTSOLE by Peter Rajan [email or web address] <ELECTRONICALLY SIGNED> By: Peter Rajan MD, FACC 07/09/19 1340 17 17 Peter Rajan MD, FACC /EPI
--- NOTE | 2019-07-09 13:40 | EKG ---
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: : 1950 Requested By: Tomasz Markham Order Number: [id number] MD: Peter Rajan Measurements Intervals [place] Rate: 73 P: 1 CA: 267 QRS: -23 QRSD: 109 T: 10 QT: 406 QTc: 448 Interpretive Statements Sinus rhythm Prolonged CA interval Inferior infarct, old Compared to ECG 06/14/2019 16:48:51 First degree AV block now present Atrial fibrillation no longer present Myocardial infarct finding still present Electronically Signed On 07-09-2019 13:40:23 BARREL ASSEMBLER HELPER by Peter Rajan [email or web address] <ELECTRONICALLY SIGNED> By: Peter Rajan MD, FACC 07/09/19 1340 1845 1845 Peter Rajan MD, FACC /EPI
[2019-07-09 16:23] VITALS: BP 111/61
[2019-07-09 16:41] LABS: CREATININE 1.6 mg/dL (0.6-1.3); POTASSIUM 5.6 mmol/L (3.5-5.1)
--- NOTE | 2019-07-09 16:42 | CON ---
[address] [address] CONSULTATION Name: JDCINTHYA CORRALES Room: [address] IN M.R.#: [id number] Admission: 07/08/19 Attend Phys: Lilian Kevin MD Discharge: Date of : 48 Report #: [id number] THIS REPORT FOR: //name// CC: LINDSEY Rajan INDICATION: Chest pain. HISTORY OF PRESENT ILLNESS: The patient is a very pleasant 69-year-old gentleman who is well known to myself. He has a history of an ischemic cardiomyopathy with an EF remotely of 25-30%. Echocardiogram earlier this month showed normalization of left ventricular systolic function. He has had interventions in the past. Most recently, he had acute inferior wall myocardial infarction in December of this year for which he received a drug-eluting stent. He remains on dual antiplatelet therapy. He had a prolonged episode of midsternal chest discomfort described as a pressure that was prolonged in nature. His cardiac enzymes have been unremarkable x 4 sets. EKG shows previous inferior wall infarct without new acute ST or T-wave abnormalities. At the time of interview, the patient is pain free. He has chronic dyspnea on exertion, but no orthopnea or paroxysmal nocturnal dyspnea. NT-proBNP is normal. A chest x-ray does not show any acute infiltrate. There is no finding to suggest acute heart failure. He has a history of paroxysmal atrial fibrillation. He is maintaining sinus rhythm on amiodarone. He is not presently chronically anticoagulated. He is on dual antiplatelet therapy, status post stenting last December. He has a history of COPD that appears stable. Labs on arrival showed acute renal insufficiency and hyperkalemia. PAST MEDICAL HISTORY: 1. Coronary artery disease. 2. Ischemic cardiomyopathy. 3. COPD. 4. Type 2 diabetes mellitus, insulin requiring. 5. GERD. 6. Hypertension. 7. Obesity. 8. Paroxysmal atrial fibrillation. 9. Right knee repair x 2. 10. Left hand carpal tunnel repair. 11. [place] [address] CONSULTATION Name: CINTHYA MILES Room: [address] IN [facility].#: [id number] Admission: 07/08/19 Attend Phys: Lilian Kevin MD Discharge: Date of : 48 Report #: [id number] ALLERGIES: CODEINE AND MORPHINE. HOME MEDICATIONS: Albuterol nebulizer q. 6 hours p.r.n., ProAir inhaler 2 puffs as directed, amiodarone 400 mg b.i.d., atorvastatin 40 mg at bedtime, carvedilol 6.25 mg b.i.d., furosemide 40 mg daily, Levemir 45 units b.i.d., lispro insulin 24 units at dinnertime, Imdur 60 mg b.i.d., lisinopril 5 mg daily, loratadine 10 mg daily, metformin 1000 mg b.i.d., Nitrostat p.r.n., Paxil 10 mg daily, Effient 10 mg daily, prednisone 10 mg as directed, spironolactone 25 mg daily, terazosin 5 mg b.i.d. FAMILY HISTORY: Positive for coronary artery disease. SOCIAL HISTORY: The patient quit smoking many years ago. He drinks alcohol rarely. PHYSICAL EXAMINATION: VITAL SIGNS: Blood pressure 117/68, pulse 63 and regular. GENERAL: This is a pleasant gentleman in no distress. Mood and affect appropriate. HEENT: The patient is wearing glasses. O2 nasal cannula in place. Extraocular muscles intact. Mucous membranes are moist. NECK: Shows no jugular venous distention. CHEST: Reveals clear lung piedra without wheezes or rales. CARDIOVASCULAR: Reveals a regular rhythm, normal S1 and S2. I do not appreciate gallop or murmur. ABDOMEN: Reveals a protuberant abdomen, soft, bowel sounds present. EXTREMITIES: Shows no edema. SKIN: Warm and dry. LABORATORY DATA: Reviewed. Sodium 132, potassium 5.7, chloride 100, bicarb 24, BUN 51, creatinine 2.3, serum glucose 272, AST 26, lipase 234, total bilirubin 0.6, calcium 8.9, magnesium 1.8, alkaline phosphatase 59, ALT 64, total protein 6.3, albumin 3.2. EGFR 28, lactic acid 1.6. Troponin less than 0.06 on 4 separate occasions. NT-proBNP 145. Coags within normal limits. D-dimer mildly elevated at 1.50. White blood cell count 12.2, hemoglobin 13.6, platelet count 120,000. Chest x-ray clear. Repeat echocardiogram ordered and pending. IMPRESSION AND RECOMMENDATIONS: 1. Chest pain, atypical. Doubt acute coronary syndrome. The patient had prolonged discomfort yesterday with no elevation of troponins. Differential diagnosis would include gastroesophageal reflux disease or pulmonary embolus. 2. Coronary artery disease, status post percutaneous coronary intervention in [address] [address] CONSULTATION Name: CINTHYA MILES Room: [facility] IN M.R.#: [id number] Admission: 07/08/19 Attend Phys: Lilian Kevin MD Discharge: Date of : 48 Report #: [id number] 12/2018. Continue dual antiplatelet therapy at this time. He is not having symptoms at this time. 3. Paroxysmal atrial fibrillation. The patient is maintaining sinus rhythm. We will decrease the amiodarone to 200 mg daily. He is not presently anticoagulated as he is on dual antiplatelet therapy. 4. Acute renal failure, etiology may be secondary to diuresis. I am holding spironolactone and furosemide at this time. We will follow. 5. Diabetes per hospitalist. 6. Hypertension. Blood pressure adequately controlled on current regimen. 7. Dyslipidemia. Continue atorvastatin. 8. Hypercoagulable state due to atrial fibrillation. He is not anticoagulated as he is on dual antiplatelet therapy. He has had significant epistaxis in the past with anticoagulation. <ELECTRONICALLY SIGNED> By: Peter Rajan MD, FACC 07/09/19 1642 1230 1300[facility] Rajan MD, FACC /nt
--- NOTE | 2019-07-09 17:10 | 2DMMODE ---
[place] [address] 2 D/M-MODE ECHOCARDIOGRAM Name: CINTHYA MILES Room: [address] IN M.R.#: [id number] Admission: 07/08/19 Attend Phys: Lilian Kevin, Discharge: Date of : 48 Date of Service: 07/09/19 1710 Report #: [id number] THIS REPORT FOR: //name// APPROVED REPORT Study performed: 07/09/2019 14:58:57 EXAM: Comprehensive 2D, Doppler, and color-flow Echocardiogram Patient Location: Bedside BSA: 2.70 HR: 63 bpm BP: 117/68 mmHg Other Information Study Quality: Fair Technically limited study due to body habitus. Indications Dyspnea Chest Pain 2D Dimensions IVSd: 11.98 (7-11mm) LVOT Diam: 20.40 (18-24mm) LVDd: 61.05 mm PWd: 13.06 (7-11mm) Ascending Ao: 41.83 (22-36mm) LVDs: 43.07 (25-40mm) Aortic Root: 30.47 mm Volumes Left Atrial Volume (Systole) LA ESV Index: 21.60 mL/m2 Aortic Valve AoV Peak Nigel.: 1.32 m/s AO Peak Gr.: 7.01 mmHg LVOT Max P.47 mmHg AO Mean Gr.: 4.44 mmHg LVOT Mean P.95 mmHg LVOT Max V: 0.61 m/s AO V2 VTI: 19.86 cm LVOT Mean V: 0.46 m/s SRIKANTH (VTI): 1.70 cm2 LVOT V1 VTI: 10.36 cm Mitral Valve E/A Ratio: 0.59 MV Decel. Time: 175.57 ms MV E Max Nigel.: 0.30 m/[place] [address] 2 D/M-MODE ECHOCARDIOGRAM Name: CINTHYA MILES Room: [address] IN M.R.#: [id number] Admission: 07/08/19 Attend Phys: Lilian Kevin, Discharge: Date of : 48 Date of Service: 07/09/19 1710 Report #: [id number] MV PHT: 50.91 ms MVA (PHT): 4.32 cm2 TDI E/Lateral E': 2.31 E/Medial E': 2.00 Medial E' Nigel.: 0.15 m/s Lateral E' Nigel.: 0.13 m/s Pulmonary Valve PV Peak Nigel.: 1.02 m/s PV Peak Gr.: 4.18 mmHg Tricuspid Valve RAP Estimate: 5.00 mmHg TR Peak Gr.: 18.17 mmHg RVSP: 23.17 mmHg PA Pressure: 23.17 mmHg Left Ventricle The left ventricle is normal size. There is normal LV segmental wall motion. Mild concentric left ventricular hypertrophy. Left ventricular systolic function is normal. LVEF is 55-60%. Grade I - abnormal relaxation pattern. Right Ventricle The right ventricle is normal size. The right ventricular systolic function is normal. Atria The left atrium size is normal. The right atrium size is normal. Aortic Valve The aortic valve is normal in structure. No aortic regurgitation is present. There is no aortic valvular stenosis. Mitral Valve The mitral valve is normal in structure. There is no mitral valve regurgitation noted. No evidence of mitral valve stenosis. Tricuspid Valve The tricuspid valve is normal in structure. Trace tricuspid regurgitation. The RVSP is 25-30 mmHg. Pulmonic Valve The pulmonary valve is normal in structure. There is no pulmonic [place] [address] 2 D/M-MODE ECHOCARDIOGRAM Name: CINTHYA MILES Room: [address] IN [facility]#: [id number] Admission: 07/08/19 Attend Phys: Lilian Kevin, Discharge: Date of : 48 Date of Service: 07/09/19 1710 Report #: [id number] Great Vessels The aortic root is normal in size. The ascending aorta is mildly dilated. (4.18 cm) IVC is normal in size and collapses >50% with inspiration. Pericardium There is no pericardial effusion. <Conclusion> The left ventricle is normal size. Mild concentric left ventricular hypertrophy. Left ventricular systolic function is normal. LVEF is 55-60%. Grade I - abnormal relaxation pattern. Trace tricuspid regurgitation. The RVSP is 25-30 mmHg. The ascending aorta is mildly dilated. (4.18 cm) <ELECTRONICALLY SIGNED> By: Peter Rajan MD, FACC 07/09/191709 09 09 Peter Rajan MD, FACC /INF
[2019-07-09 17:53] LABS: URINE BILIRUBIN NEGATIVE (Negative); URINE BLOOD NEGATIVE (Negative); URINE CLARITY CLEAR; URINE COLOR YELLOW; URINE GLUCOSE-RANDOM 2+ (Negative); URINE KETONES NEGATIVE (Negative); URINE LEUKOCYTES NEGATIVE (Negative); URINE NITRITE NEGATIVE (Negative); URINE PROTEIN NEGATIVE (Negative); URINE UROBILINOGEN 0.2 E.U./dl (0.2-1.0)
[2019-07-09 20:00] VITALS: BP 111/58
[2019-07-10] VITALS: BP 104/58
[2019-07-10 04:00] VITALS: BP 100/54
[2019-07-10 05:39] LABS: ALBUMIN 2.8 g/dL (3.4-5.0); CALCIUM 7.8 mg/dL (8.5-10.1); CREATININE 1.6 mg/dL (0.6-1.3); POTASSIUM 4.7 mmol/L (3.5-5.1); TOTAL BILIRUBIN 0.4 mg/dL (<0.1-1.0); TOTAL PROTEIN 5.4 g/dL (6.4-8.2)
[2019-07-10 08:19] VITALS: BP 129/51
[2019-07-10 12:03] VITALS: BP 129/78
[2019-07-10 16:36] VITALS: BP 130/69
[2019-07-10 20:00] VITALS: BP 104/47
[2019-07-11] VITALS: BP 118/70
[2019-07-11 04:00] VITALS: BP 131/78
[2019-07-11 05:12] LABS: CALCIUM 7.8 mg/dL (8.5-10.1); CREATININE 1.3 mg/dL (0.6-1.3); POTASSIUM 4.8 mmol/L (3.5-5.1)
[2019-07-11 08:30] VITALS: BP 157/77
[2019-07-11 12:26] VITALS: BP 123/73
[2019-07-11 17:25] VITALS: BP 126/77
[2019-07-11 20:00] VITALS: BP 122/69
[2019-07-12] VITALS (7 sets, daily range): BP systolic 97–135; BP diastolic 51–83
[2019-07-12] MEDS ORDERED: CARVEDILOL12.5 MG PO (12:16)
[2019-07-12] MEDS ORDERED: AMIODARONE HCL400 MG PO (12:16)
[2019-07-12] MEDS ORDERED: PRINIVIL5 MG PO (12:17)
[2019-07-12] MEDS ORDERED: SPIRONOLACTONE25 MG PO (12:18)
[2019-07-13] VITALS: BP 89/36
[2019-07-13 04:00] VITALS: BP 107/50
[2019-07-13 04:46] LABS: HEMATOCRIT 32.7 % (42.0-52.0); HEMOGLOBIN 11.3 gm/dL (14.0-18.0); MCH 29.6 pg (26.0-34.0); MCHC 34.7 g/dL (28.0-37.0); MCV 85.5 fL (80.0-100.0); RBC 3.83 mil/uL (4.50-6.00); WBC 7.4 thou/uL (4.0-11.0)
[2019-07-13 05:19] LABS: ALBUMIN 2.7 g/dL (3.4-5.0); CALCIUM 7.9 mg/dL (8.5-10.1); CREATININE 1.1 mg/dL (0.6-1.3); POTASSIUM 4.2 mmol/L (3.5-5.1); TOTAL BILIRUBIN 0.3 mg/dL (<0.1-1.0)
[2019-07-13 08:11] VITALS: BP 127/63
[2019-07-13 11:44] VITALS: BP 123/70
[2019-07-13 15:13] VITALS: BP 116/71
[2019-07-13] MEDS ORDERED: ASA81BEC PO (15:47)
[2019-07-13 16:00] VITALS: BP 116/71
--- NOTE | 2019-07-28 10:45 | CON ---
[address] [address] CONSULTATION Name: CINTHYA MILES Room: [address] IN M.R.#: [id number] Admission: 07/08/19 Attend Phys: Lilian Kevin MD Discharge: 07/13/19 Date of : 48 Report #: [id number] THIS REPORT FOR: //name// CC: LINDSEY Rajan DATE OF SERVICE: 07/10/2019 REQUESTING PHYSICIAN: Dr. Martin. REASON FOR CONSULTATION: Acute kidney injury. Consultation done by me today 07/10/2019. HISTORY OF PRESENT ILLNESS: The patient is a 69-year-old gentleman, with medical history significant for coronary artery disease, ischemic cardiomyopathy with left ventricular ejection fraction of 25-30%, morbid obesity, and chronic kidney disease stage 3. He presents with complaints of intermittent chest pain. He was evaluated by final cleaner, Dr. Rajan who is following him. PAST MEDICAL HISTORY: 1. Coronary artery disease. 2. Ischemic cardiomyopathy. 3. Chronic kidney disease stage 3. 4. Chronic obstructive pulmonary disease. 5. Diabetes mellitus type 2. 6. Morbid obesity. 7. Hypertension. 8. Osteoarthritis. MEDICATIONS: Prior to admission reviewed. From my standpoint, he was on lisinopril 5 mg a day, spironolactone 25 mg a day, furosemide 40 mg a day. REVIEW OF SYSTEMS: He feels better today. He states he has no chest pain, no symptoms. He wants to go home. FAMILY HISTORY: Noncontributory. SOCIAL HISTORY: There is a history of remote smoking. No alcohol abuse. No current tobacco abuse. PHYSICAL EXAMINATION: GENERAL: Awake, alert, oriented. VITAL SIGNS: Blood pressure 129/78, heart rate 84, afebrile. HEENT: [place] [address] CONSULTATION Name: CINTHYA MILES Room: [address]#: [id number] Admission: 07/08/19 Attend Phys: Lilian Kevin MD Discharge: 07/13/19 Date of : 48 Report #: [id number] NECK: Fatty. LUNGS: Clear. CARDIOVASCULAR: Regular rate. ABDOMEN: Soft. LOWER EXTREMITIES: No edema. LABORATORY DATA: Lab report serum sodium 134, potassium 4.7, BUN 44, creatinine 1.6. His creatinine was 1.8 on admission, went up to 2.3, baseline around 1.4. ASSESSMENT: 1. Acute kidney injury could be due to medication. His blood pressure was too low on admission, at one point it was as low as 74/44. 2. Chronic kidney disease stage 3. 3. Coronary artery disease. 4. History of hypertension. 5. Diabetes mellitus type 2. 6. Obesity. PLAN: Agree with holding his lisinopril, furosemide, and Aldactone. Eventually will have to resume some of those medications, but I would like to keep baseline of blood pressure higher than that. I would like to keep blood pressure somewhere between 120-130 systolic and diastolic between 70-80. We will follow very closely with you. <ELECTRONICALLY SIGNED> By: James Nelson MD 07/28/19 1045 1256 [id number] Nelson MD /nt
== END 2019-07-13 16:15 | disposition home health service (06) | DRG 682 ==
LOC: M.ERS 18:13 → M.2W 19:09 → M.TBA-ER 19:09 → M.2W 20:26
PROVIDERS: Emergency Medicine; Internal Medicine; Internal Medicine Cardiovascular Disease; ADMIT Internal Medicine
DX: N17.9 Acute kidney failure, unspecified (principal); I50.31 Acute diastolic (congestive) heart failure; R65.11 Systemic inflammatory response syndrome (SIRS) of non-infectious origin with acute organ dysfunction; I13.0 Hypertensive heart and chronic kidney disease with heart failure and stage 1 through stage 4 chronic kidney disease, or unspecified chronic kidney disease; I25.110 Atherosclerotic heart disease of native coronary artery with unstable angina pectoris; D68.59 Other primary thrombophilia; Z68.41 Body mass index [BMI] 40.0-44.9, adult; I95.9 Hypotension, unspecified; M19.90 Unspecified osteoarthritis, unspecified site; E66.01 Morbid (severe) obesity due to excess calories; F41.9 Anxiety disorder, unspecified; F32.9 Major depressive disorder, single episode, unspecified; J44.9 Chronic obstructive pulmonary disease, unspecified; Z96.652 Presence of left artificial knee joint; I25.5 Ischemic cardiomyopathy; K21.9 Gastro-esophageal reflux disease without esophagitis; I48.0 Paroxysmal atrial fibrillation; E78.5 Hyperlipidemia, unspecified; E11.22 Type 2 diabetes mellitus with diabetic chronic kidney disease; N18.3 Chronic kidney disease, stage 3 (moderate); Z79.01 Long term (current) use of anticoagulants; Z79.2 Long term (current) use of antibiotics; Z79.4 Long term (current) use of insulin; I25.2 Old myocardial infarction; Z95.5 Presence of coronary angioplasty implant and graft; Z79.899 Other long term (current) drug therapy; Z88.5 Allergy status to narcotic agent; Z87.891 Personal history of nicotine dependence; Z82.49 Family history of ischemic heart disease and other diseases of the circulatory system

== ENCOUNTER 2019-07-22 14:56 | Inpatient (IN) | payer MEDICARE ==
[~2019-07-22] VITALS: Ht 188 cm; Wt 152.4 kg
[~2019-07-22 14:56] MED LIST changes: +AMIODARONE HCL400 MG PO; +ASA81BEC PO; +CARVEDILOL12.5 MG PO; +LASIX 40 MG TAB40 MG PO
[2019-07-22 16:00] VITALS: BP 107/56
[2019-07-22 16:52] LABS: HEMATOCRIT 34.1 % (42.0-52.0); HEMOGLOBIN 11.6 gm/dL (14.0-18.0); MCH 29.2 pg (26.0-34.0); MCV 85.9 fL (80.0-100.0); MPV 8.2 fl. (7.2-11.1); NUCLEATED RBCS 0 /100WBC; PLATELET COUNT* 147 thou/uL (150-400); RBC 3.97 mil/uL (4.50-6.00); RDW-CV 15.7 % (10.5-14.5); WBC 9.3 thou/uL (4.0-11.0)
[2019-07-22 17:02] LABS: ALBUMIN 3.1 g/dL (3.4-5.0); CALCIUM 8.8 mg/dL (8.5-10.1); CREATININE 1.5 mg/dL (0.6-1.3); TOTAL BILIRUBIN 0.6 mg/dL (<0.1-1.0); TOTAL PROTEIN 6.6 g/dL (6.4-8.2)
[2019-07-22 17:17] LABS: URINE BILIRUBIN NEGATIVE (Negative); URINE BLOOD NEGATIVE (Negative); URINE CLARITY CLEAR; URINE COLOR YELLOW; URINE GLUCOSE-RANDOM 1+ (Negative); URINE KETONES NEGATIVE (Negative); URINE LEUKOCYTES NEGATIVE (Negative); URINE NITRITE NEGATIVE (Negative); URINE PROTEIN NEGATIVE (Negative); URINE UROBILINOGEN 0.2 E.U./dl (0.2-1.0)
[2019-07-22 17:38] LABS: ABSOLUTE LYMPHOCYTES 0.7 thou/uL (0.8-5.3); ABSOLUTE MONOCYTES 0.6 thou/uL (0.0-1.2); ABSOLUTE NEUTROPHILS 8.1 thou/uL (1.6-8.1)
[2019-07-22 17:39] LABS: ANISOCYTOSIS Occasional; PLATELET ESTIMATE ADEQUATE
--- NOTE | 2019-07-22 18:04 | NUR ---
PT ADMITTED A DIRECT ADMIT TO TELEMETRY ROOM 205 WITH AN ADMITTING DIAGNOSIS OF CHF, COPD. PT ON ROOM AIR. TRACING SR WITH 1ST DEGREE BLOCK. PT DENIES PAIN. REFER TO COMPUTER CHARTING FOR FURTHER DETAILS. HOURLY ROUNDING IN PLACE FOR PT SAFETY. CLWR.
[2019-07-22 20:30] VITALS: BP 121/69
[2019-07-23] VITALS: BP 110/62
[2019-07-23 04:10] VITALS: BP 96/40
--- NOTE | 2019-07-23 06:00 | NUR ---
ASSUMED CARE OF PATIENT AT APPROX 1930. ALERT AND ORIENTED X4. ASSESSMENT COMPLETED AND CHARTED. VSS ON 2 LITERS 02. NO COMPLAINTS THIS SHIFT. CPAP BROUGHT IN BY SPOUSE AND SETUP BY RT. PATIENT SLEPT THROUGHOUT THE NIGHT. UP AD RAMONE TO USE THE BATHROOM. TRACING SR ON MONITOR. CALL LIGHT WITHIN REACH. HOURLY ROUNDS COMPLETED. WILL CONTINUE WITH PLAN OF CARE.
[2019-07-23 07:30] VITALS: BP 111/68
--- NOTE | 2019-07-23 11:24 | EKG ---
[place] [address] ELECTROCARDIOGRAM REPORT Name: CINTHYA MILES Room: [address] ADM IN M.R.#: [id number] Admission: 07/22/19 Attend Phys: Yair Montana Discharge: Date of : 48 Report #: [id number] THIS REPORT FOR: //name// 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: : 1950 Requested By: Priyanka Merritt Order Number: [id number] MD: Eliceo Burkett Measurements Intervals [place] Rate: 89 P: 24 SD: 265 QRS: 10 QRSD: 115 T: 8 QT: 389 QTc: 474 Interpretive Statements Sinus rhythm Prolonged SD interval Nonspecific intraventricular conduction delay Inferior infarct, old Compared to ECG 07/08/2019 18:45:24 Intraventricular conduction delay now present Myocardial infarct finding still present Electronically Signed On 07-23-2019 11:23:33 WEATHER REPORTER by Eliceo Burkett [email or web address] <ELECTRONICALLY SIGNED> By: Eliceo Burkett MD, [facility] 07/23/19 1123 1041 1041 Eliceo Burkett MD, [facility] /EPI
[2019-07-23 12:00] VITALS: BP 119/61
--- NOTE | 2019-07-23 14:30 | NUR ---
Pt is A&O. Known to this CM from previous hospital stay, Pt states that nothing has changed since last admission. Pt a direct admit from cardiology clinic. 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 Pt has a cane for mobility. Current with [facility]. No hx of SNF. Pt has home o2 through [employer] and a cpap through [facility] that was delivered during last hospital stay at the end of June. Goal is home at pa, resume . [facility]u f:[phone]
[2019-07-23 15:55] VITALS: BP 100/56
--- NOTE | 2019-07-23 18:00 | NUR ---
RECEIVED REPORT FROM NIGHT NURSE. ASSUMED CARE OF PT AROUND 0730. PT A&O X4. VSS. BLANKET FOLDER IN PLACE TRACING SR WITH 1ST DEGREE WITH NO CHANGES THIS SHIFT. AM ASSESSMENT AND VITALS COMPLETED CHARTED. PT HAS DENIED PAIN THIS SHIFT. APPETITE GOOD. PULMONARY IN TO SEE PT - BIPAP ORDERED PRN; PT USED BIPAP OFF AND ON, BUT OVERALL PT STATED THAT HE FELT LITTLE RELIEF WITH THE BIPAP. PT SPOKE TO HIS DAUGHTER ON THE PHONE MULTIPLE TIMES THIS SHIFT. UP WITH SBA TO BATHROOM TO VOID. BM THIS AM. PT CURRENTLY RESTING IN BEDSIDE CHAIR. 2L PER NC IN PLACE. CALL LIGHT IS WITHIN REACH. HOURLY ROUNDING PERFORMED. LOW FALL RISK PRECAUTIONS IN PLACE.
[2019-07-23 20:00] VITALS: BP 108/62
[2019-07-24] VITALS: BP 104/62
[2019-07-24 04:00] VITALS: BP 98/54
[2019-07-24 05:19] LABS: CALCIUM 8.4 mg/dL (8.5-10.1); CREATININE 1.6 mg/dL (0.6-1.3); POTASSIUM 5.6 mmol/L (3.5-5.1)
[2019-07-24 08:00] VITALS: BP 105/53
[2019-07-24 12:11] VITALS: BP 85/64
[2019-07-24 16:23] VITALS: BP 102/52
--- NOTE | 2019-07-24 18:42 | NUR ---
PT IS RESTING AT THIS TIME. NO COMPLAINTS DURING HOURLY ROUNDING. VSS ON 2L NC. PT IS PROGRESSING TOWEARDS GOALS APPROPRIATELY. FALL PRECAUTIONS IN PLACE
--- NOTE | 2019-07-24 19:30 | CON ---
[address] [address] CONSULTATION Name: CINTHYA MILES Room: [address] IN M.R.#: [id number] Admission: 07/22/19 Attend Phys: Yair Montana Discharge: Date of : 48 Report #: [id number] THIS REPORT FOR: //name// CC: LINDSEY Obregon DATE OF SERVICE: 07/23/2019 REASON FOR CONSULTATION: I was asked to see this 69-year-old gentleman for ijdzu-it-xigcurs respiratory failure. HISTORY OF PRESENT ILLNESS: He is recently started on oxygen. He has COPD. He has sleep apnea, recently started on CPAP but the mask does not seal well. He has not used it. He has history of 41-zqsr-lxtj smoking, quit smoking 20 years ago. He has not felt well for the past few weeks, he has been admitted multiple times for CHF and COPD with acute exacerbation. He was seen in Cardiology office yesterday, was admitted due to tachypnea and increased shortness of breath. He has had wheezing. He has had increased cough with yellow sputum production. He denies fever or chills. He denies chest pain. His lower extremity edema is not worse. PAST MEDICAL HISTORY: COPD, coronary artery disease, diastolic and systolic CHF, obstructive sleep apnea-hypopnea syndrome, paroxysmal atrial fibrillation, not on anticoagulation secondary to epistaxis, gastroesophageal reflux disease, hypertension. ALLERGIES: CODEINE, MORPHINE. SOCIAL HISTORY: History of 73-hzhl-ixhr smoking, stopped smoking 20 years ago. FAMILY HISTORY: Hypertension. MEDICATIONS: Currently, he is on Solu-Medrol 125 mg every 8 hours. He received one dose of Lasix yesterday. He is on albuterol every 6 hours, Aldactone, aspirin, Ativan p.r.n., Multaq, insulin, lisinopril, loratadine, metformin, Paxil, and Hytrin. REVIEW OF SYSTEMS: As mentioned as above, other systems are otherwise negative. PHYSICAL EXAMINATION: GENERAL: This is an obese gentleman on 2 liters of oxygen. VITAL SIGNS: His O2 saturation is 95%, respiratory rate 26, heart rate 92, blood pressure 111/68. HEENT: Normocephalic, atraumatic. Pupils equal, round[place] [address] CONSULTATION Name: CINTHYA MILES Room: [address]#: [id number] Admission: 07/22/19 Attend Phys: Yair Montana Discharge: Date of : 48 Report #: [id number] There is shallow oropharynx. Nose is clear. NECK: There is no lymphadenopathy or thyromegaly. CARDIOVASCULAR: Regular rate and rhythm. PMI is nondisplaced. CHEST: On inspection, he appears tachypneic. LUNGS: He has bilateral end-expiratory wheezing, bibasilar crackles, dullness at the bases. ABDOMEN: Soft and obese. Bowel sounds are good. There is no mass. EXTREMITIES: There is trace edema. LYMPHATICS: There is no lymphadenopathy. NEUROLOGIC: Alert and oriented. SKIN: Chronic changes. LABORATORY DATA: I reviewed the following lab data: Chest x-ray did not show infiltrate. WBC 9.3, hemoglobin 11.6, platelets 147. Sodium 136, potassium 5, chloride 103, CO2 of 27, BUN 14, creatinine 1.5. Lactic acid 1.9. IMPRESSION: 1. Hayek-yf-rpyltzo respiratory failure secondary to acute exacerbation of chronic obstructive pulmonary disease, acute systolic and diastolic congestive heart failure, acute bronchitis versus pneumonia versus others. 2. Acute exacerbation of chronic obstructive pulmonary disease. 3. Acute systolic and diastolic congestive heart failure. 4. Acute bronchitis versus pneumonia. 5. Obstructive sleep apnea-hypopnea syndrome. 6. Hypertension. 7. Diabetes mellitus. 8. Coronary artery disease. PLAN AND RECOMMENDATIONS: 1. Titrate FiO2 to keep O2 saturation 91%. 2. I will change bronchodilator to DuoNeb every 4 hours. 3. Add inhaled corticosteroid. 4. I will decrease Solu-Medrol to 40 mg IV every 8 hours. 5. Start him on BiPAP 12/6, rate of 10 until his respiratory status is stable, we will use BiPAP during the day and continuously at night. 6. BNP is ordered. He may benefit from Lasix IV. 7. I will start him on Rocephin 1 gram IV daily. 8. Monitor respiratory status very closely. 9. The findings and recommendations were discussed with the patient, RN and RT. I have answered all of the patient's questions. He understood and agreed to proceed with the plan. [address] [address] CONSULTATION Name: CINTHYA MILES Room: [address] IN M.R.#: [id number] Admission: 07/22/19 Attend Phys: Yair Montana Discharge: Date of : 48 Report #: [id number] Thank you very much for allowing me to participate in care of this very nice gentleman. <ELECTRONICALLY SIGNED> By: Reena Linder MD 07/24/19 1930 1136 [id number] Linder MD /nt
[2019-07-24 20:00] VITALS: BP 106/57
[2019-07-25] VITALS (8 sets, daily range): BP systolic 92–126; BP diastolic 55–68
--- NOTE | 2019-07-25 06:46 | NUR ---
ASSUMED CARE OF PT AFTER REPORT AT 1930. PT A&OX4. VSS. PHYSICAL ASSESSMENT COMPLETED AND CHARTED. PT ON O2 2L NC/CPAP WHEN SLEEPING. PT UPADLIB TO RESTROOM. PT DENIES ANY PAIN OR DISCOMFORT. PT ABLE TO SLEEP WELL IN BED. CALL LIGHT WITHIN REACH.
[2019-07-26] VITALS (7 sets, daily range): BP systolic 109–133; BP diastolic 48–67
--- NOTE | 2019-07-26 06:07 | NUR ---
ASSUMED CARE OF PT AFTER REPORT AT 1930. PHYSICAL ASSESSMENT COMPLETED AND CHARTED. PT ONO2 AT 2L NC/BIPAP WHEN SLEEPING. PT TRACING SR/ST/1ST DEG ON TELE. PT PREVIOUSLY UPADLIB. PT WENT TO THE RESTROOM TO URINATE. BATHROOM LIGHT SEEN GOING OFF BY STAFF. STAFF FOUND PT ON THE FLOOR. PT A&OX4. VITALS STABLE. PT CLAIMED HE HIT HIS HEAD TO THE WALL. NO HEADACHE NOTED. PT ACCOMPANIED BACK TO THE BED VIA WHEELCHAIR. WHEN ASKED WHAT HAPPENED, HE STATED HE LOST HIS BALANCE WHILE PULLING HIS BRIEFS UP. SKIN TEAR ON LEFT FOREARM AND ABRASION ON LEFT LEG NOTED. CLEANED, PAT DRY, PHOTOGRAPH TAKEN AND COVERED WITH MEPILEX. [employer] PROGRAMMER REMOTE & DR WOMACK INFORMED. HEAD CT ORDERED AND DONE. FALL PRECAUTIONS IN PLACE. INITIALLY, PT REFUSED BED & CHAIR ALARM BUT THIS NURSE EDUCATED THE PT. COMMUNINCATES UNDERSTANDING. CALL LIGHT WITHIN REACH.
--- NOTE | 2019-07-26 09:20 | NUR ---
INITAL ASSESSMENT COMPLETED CHARTED. VSS. TRACING SR ON MONITOR. PT DENIES PAIN, SOA, N/V/D. REFER TO COMPUTER CHARTING FOR FURTHER DETAILS. HOURLY ROUNDING AND FALL PRECAUTIONS IN PLACE FOR PT SAFETY. CLWR.
[2019-07-27] VITALS (8 sets, daily range): BP systolic 94–178; BP diastolic 38–91
--- NOTE | 2019-07-27 05:25 | NUR ---
ASSUMED CARE OF PT AFTER REPORT AT 1930. PT A&OX4. VSS. PHYSICAL ASSESSMENT COMPLETED AND CHARTED. PT ON O2 AT 2L NC/CPAP WHEN SLEEPING. PT TRACING SR1/1ST DEG ON TELE. PT UP STANDBY TO RESTROOM. PT DENIES NAY PAIN OR DISCOMFORT. PT ABLE TO SLEEP WELL ON BED. CALL LIGHT WITHIN REACH.
--- NOTE | 2019-07-27 15:04 | NUR ---
CHF Medication Teaching Saw patient today at bedside to discuss CHF meds. Pt states has been on these meds for some time. Discussed how the medications work, when to take, possible side effects, etc. The pt states they have no questions at this time. Pharmacy is available if there are further questions, thank you.
--- NOTE | 2019-07-27 19:07 | NUR ---
ASSUMED PT CARE AT 0730, FULL ASSESMENT DONE CHARTED. PT A/O X4, ON 2L O2, UP WITH ASSIST, USING CALL LIGHT FOR ASSISTANCE. UP TO CHAIR TODAY. DISCHARGE ODERS IN, PT NOT FEELING UP TO GOING HOME, COMMUNICATED THIS WITH THE DR. PT UP FOR WALKS WITH STAFF, SOA HE WALKS, TAKES A FEW MIN TO RECOVER. PT DENIES PAIN. REPORT GIVEN TO LIZA CASTANO.
[2019-07-28] VITALS (8 sets, daily range): BP systolic 84–136; BP diastolic 40–88
--- NOTE | 2019-07-28 05:25 | NUR ---
ASSUMED CARE OF PT AFTER REPORT AT 1930. PT A&OX4. VSS. PHYSICAL ASSESSMENT COMPLETED AND CHARTED. PT ON O2 AT 2L NC. REFUSED TO WEAR CPAP LAST NIGHT DUE TO COUGHING. PT TRACING SR/1ST DEG ON TELE. PT UPSTANDBY TO RESTROOM. PT DENIES ANY PAIN OR DISCOMFORT. CALL LIGHT WITHIN REACH.
[2019-07-28] MEDS ORDERED: CEFDINIR300 MG PO (12:32)
[2019-07-28] MEDS ORDERED: PREDNISONE 10 M10 MG PO (12:32)
[2019-07-28] MEDS ORDERED: BENZONATATE100 MG PO (12:35)
--- NOTE | 2019-07-28 15:16 | NUR ---
Pt not discharging today, continues to have episodes of dizziness. Plan continues to be for Pt to [facility].
[2019-07-28] MEDS ORDERED: MULTAQ400 MG PO (17:43)
--- NOTE | 2019-07-28 19:21 | NUR ---
ASSUMED PT CARE AT 0730, FULL ASSESMENT DONE CHARTED. PT A/O X4, ON 2L ON THIS AM, LUNGS COURSE, PT GIVEN LASIX, BREATHING WITH MORE EASE THIS AFTERNOON. OFF O2 THIS EVENING, DISCHARGE ORDERS RECIEVED. DISCUSSED DISCHARGE INSTRUCTIONS WITH PT, HE VERBALIZED UNDERSTANIND. PT PROVIDED WITH WRITTEN EDUCTION ON NEW SCRIPTS. IV REMOVED, BELONGINGS GATHERED. PT WAITING ON DAUGHTER FOR TRANSPORT AT THIS TIME. .
--- NOTE | 2019-07-28 19:42 | NUR ---
PT DISCHARGED WITH DAUGHTER AT APPROX 1939
== END 2019-07-28 19:40 | disposition home health service (06) | DRG 291 ==
LOC: M.2W 14:56
PROVIDERS: ADMIT Internal Medicine
PROC: 5A09357 Assistance with Respiratory Ventilation, Less than 24 Consecutive Hours, Continuous Positive Airway Pressure (ICD-10-PCS; principal; 2019-07-23)
PROC: 5A09357 Assistance with Respiratory Ventilation, Less than 24 Consecutive Hours, Continuous Positive Airway Pressure (ICD-10-PCS; 2019-07-24)
PROC: 5A09357 Assistance with Respiratory Ventilation, Less than 24 Consecutive Hours, Continuous Positive Airway Pressure (ICD-10-PCS; 2019-07-25)
PROC: 5A09357 Assistance with Respiratory Ventilation, Less than 24 Consecutive Hours, Continuous Positive Airway Pressure (ICD-10-PCS; 2019-07-26)
PROC: 5A09357 Assistance with Respiratory Ventilation, Less than 24 Consecutive Hours, Continuous Positive Airway Pressure (ICD-10-PCS; 2019-07-27)
PROC: 5A09357 Assistance with Respiratory Ventilation, Less than 24 Consecutive Hours, Continuous Positive Airway Pressure (ICD-10-PCS; 2019-07-28)
DX: I13.0 Hypertensive heart and chronic kidney disease with heart failure and stage 1 through stage 4 chronic kidney disease, or unspecified chronic kidney disease (principal); I50.43 Acute on chronic combined systolic (congestive) and diastolic (congestive) heart failure; J96.20 Acute and chronic respiratory failure, unspecified whether with hypoxia or hypercapnia; N17.9 Acute kidney failure, unspecified; J44.1 Chronic obstructive pulmonary disease with (acute) exacerbation; Z68.41 Body mass index [BMI] 40.0-44.9, adult; J44.0 Chronic obstructive pulmonary disease with (acute) lower respiratory infection; N18.3 Chronic kidney disease, stage 3 (moderate); G47.30 Sleep apnea, unspecified; I25.10 Atherosclerotic heart disease of native coronary artery without angina pectoris; I48.0 Paroxysmal atrial fibrillation; K21.9 Gastro-esophageal reflux disease without esophagitis; E66.9 Obesity, unspecified; E11.22 Type 2 diabetes mellitus with diabetic chronic kidney disease; I49.9 Cardiac arrhythmia, unspecified; F32.9 Major depressive disorder, single episode, unspecified; F41.9 Anxiety disorder, unspecified; Z96.652 Presence of left artificial knee joint; J30.2 Other seasonal allergic rhinitis; F41.1 Generalized anxiety disorder; I25.5 Ischemic cardiomyopathy; E87.5 Hyperkalemia; J20.9 Acute bronchitis, unspecified; Z87.891 Personal history of nicotine dependence; Z86.010 Personal history of colon polyps; Z79.01 Long term (current) use of anticoagulants; Z82.49 Family history of ischemic heart disease and other diseases of the circulatory system; Z88.5 Allergy status to narcotic agent; I25.2 Old myocardial infarction; Z95.5 Presence of coronary angioplasty implant and graft

== ENCOUNTER → 2019-08-03 | Outpatient (CLI) | payer MEDICARE ==
[~2019-08-03] MED LIST changes: +MULTAQ400 MG PO
[2019-08-03 15:28] LABS: CALCIUM 8.3 mg/dL (8.5-10.1); CREATININE 1.3 mg/dL (0.6-1.3); POTASSIUM 5.8 mmol/L (3.5-5.1)
== END ==
LOC: M.LAB 14:48
PROVIDERS: Registered Nurse
DX: I25.5 Ischemic cardiomyopathy (principal); E11.22 Type 2 diabetes mellitus with diabetic chronic kidney disease; I12.9 Hypertensive chronic kidney disease with stage 1 through stage 4 chronic kidney disease, or unspecified chronic kidney disease; N18.9 Chronic kidney disease, unspecified

== ENCOUNTER → 2019-08-18 | Outpatient (CLI) | payer MEDICARE ==
[2019-08-18 10:18] LABS: CALCIUM 8.3 mg/dL (8.5-10.1); CREATININE 1.1 mg/dL (0.6-1.3); POTASSIUM 4.2 mmol/L (3.5-5.1)
== END ==
LOC: M.LAB 09:21
PROVIDERS: Registered Nurse
DX: I25.5 Ischemic cardiomyopathy (principal); N18.9 Chronic kidney disease, unspecified

== ENCOUNTER → 2019-09-20 | Outpatient (CLI) | payer MEDICARE ==
[2019-09-20 14:51] LABS: CALCIUM 8.8 mg/dL (8.5-10.1); POTASSIUM 4.6 mmol/L (3.5-5.1)
== END ==
LOC: M.LAB 14:26
PROVIDERS: Registered Nurse
DX: I25.10 Atherosclerotic heart disease of native coronary artery without angina pectoris (principal); I25.5 Ischemic cardiomyopathy; N18.9 Chronic kidney disease, unspecified

== ENCOUNTER → 2019-10-12 | Outpatient (CLI) | payer MEDICARE ==
[2019-10-12 10:39] LABS: ABSOLUTE EOSINOPHILS 0.1 thou/uL (0.0-0.7); ABSOLUTE LYMPHOCYTES 0.9 thou/uL (0.8-5.3); ABSOLUTE MONOCYTES 0.4 thou/uL (0.0-1.2); ABSOLUTE NEUTROPHILS 6.3 thou/uL (1.6-8.1); BASOPHILS 0.5 %; EOSINOPHILS 0.9 %; HEMATOCRIT 38.9 % (42.0-52.0); HEMOGLOBIN 13.2 gm/dL (14.0-18.0); LYMPHOCYTES 11.8 %; MCH 30.7 pg (26.0-34.0); MCHC 33.9 g/dL (28.0-37.0); MCV 90.7 fL (80.0-100.0); MONOCYTES 4.6 %; MPV 8.9 fl. (7.2-11.1); NUCLEATED RBCS 0 /100WBC; PLATELET COUNT* 120 thou/uL (150-400); POLYS 82.2 %; RBC 4.28 mil/uL (4.50-6.00); RDW-CV 14.9 % (10.5-14.5); WBC 7.7 thou/uL (4.0-11.0)
[2019-10-12 10:58] LABS: ALBUMIN 3.4 g/dL (3.4-5.0); ALKALINE PHOSPHATASE 82 U/L (46-116); ANION GAP 6 mmol/L (7-16); BUN 23 mg/dL (7-18); CALCIUM 8.3 mg/dL (8.5-10.1); CHLORIDE 104 mmol/L (98-107); CO2 28 mmol/L (21-32); CREATININE 1.2 mg/dL (0.6-1.3); GLUCOSE 300 mg/dL (70-99); NT-PRO BRAIN NAT PEPTIDE 128 pg/mL (<300); POTASSIUM 4.3 mmol/L (3.5-5.1); SGOT 15 U/L (15-37); SGPT 31 U/L (30-65); SODIUM 138 mmol/L (136-145); TOTAL BILIRUBIN 0.4 mg/dL (<0.1-1.0); TOTAL PROTEIN 6.4 g/dL (6.4-8.2); TROPONIN-I LEVEL <0.06 ng/mL (<0.06)
== END ==
LOC: M.LAB 10:10
PROVIDERS: Nurse Practitioner
DX: I48.0 Paroxysmal atrial fibrillation (principal); I25.5 Ischemic cardiomyopathy; N18.9 Chronic kidney disease, unspecified; R55 Syncope and collapse

== ENCOUNTER 2020-01-22 15:57 | Observation (INO) | payer MEDICARE ==
[~2020-01-22] VITALS: Ht 188 cm; Wt 160.1 kg
[2020-01-22 16:01] VITALS: BP 110/70
[2020-01-22 16:29] LABS: ABSOLUTE LYMPHOCYTES 0.8 thou/uL (0.8-5.3); ABSOLUTE MONOCYTES 0.4 thou/uL (0.0-1.2); BASOPHILS 0.6 %; EOSINOPHILS 0.6 %; HEMATOCRIT 37.4 % (42.0-52.0); HEMOGLOBIN 12.6 gm/dL (14.0-18.0); LYMPHOCYTES 9.3 %; MCHC 33.8 g/dL (28.0-37.0); MCV 88.8 fL (80.0-100.0); MONOCYTES 5.2 %; MPV 8.3 fl. (7.2-11.1); NUCLEATED RBCS 0 /100WBC; PLATELET COUNT* 136 thou/uL (150-400); POLYS 84.3 %; RBC 4.21 mil/uL (4.50-6.00); RDW-CV 16.5 % (10.5-14.5); WBC 8.3 thou/uL (4.0-11.0)
[2020-01-22 16:40] LABS: APTT 21.7 Seconds (25.0-31.3); CALCIUM 8.2 mg/dL (8.5-10.1); CREATININE 1.3 mg/dL (0.6-1.3); POTASSIUM 4.1 mmol/L (3.5-5.1); PROTIME 10.2 Seconds (9.20-11.50)
[2020-01-22 16:54] LABS: ALBUMIN 2.9 g/dL (3.4-5.0); MAGNESIUM 1.7 mg/dL (1.8-2.4); TOTAL BILIRUBIN 0.3 mg/dL (<0.1-1.0); TOTAL PROTEIN 5.7 g/dL (6.4-8.2)
[2020-01-22 17:50] VITALS: BP 110/55
--- NOTE | 2020-01-22 18:10 | NUR ---
ER ADMIT TO RM 210 VIA CART TELEPHONE REPORT GIVEN PRIOR TO ARRIVAL PATIENT ASSISTED 1 TO BED ORIENTED TO ROOM AND CALL LIGHT PATIENT WITH SOME CP 5/10 NEED ORDERS FOR PAIN MEDICTION WILL F/U AND MONITOR
[2020-01-22 18:15] VITALS: BP 136/75
[2020-01-22 20:00] VITALS: BP 109/74
[2020-01-23] VITALS: BP 109/64
[2020-01-23 04:00] VITALS: BP 144/75
[2020-01-23 04:43] LABS: HEMATOCRIT 34.4 % (42.0-52.0); HEMOGLOBIN 11.8 gm/dL (14.0-18.0); MCH 30.6 pg (26.0-34.0); MCHC 34.2 g/dL (28.0-37.0); MCV 89.3 fL (80.0-100.0); MPV 8.5 fl. (7.2-11.1); RBC 3.85 mil/uL (4.50-6.00); RDW-CV 16.6 % (10.5-14.5); WBC 6.7 thou/uL (4.0-11.0)
[2020-01-23 04:54] LABS: CALCIUM 8.2 mg/dL (8.5-10.1); CREATININE 1.1 mg/dL (0.6-1.3); MAGNESIUM 2.1 mg/dL (1.8-2.4); POTASSIUM 4.2 mmol/L (3.5-5.1)
--- NOTE | 2020-01-23 07:20 | NUR ---
CHANGE OF SHIFT, BEDSIDE REPORT GIVEN PATIENT SEEN AT BEDSIDE, IN CHAIR WATCHING TV ASSUMED PATIENT CARE
[2020-01-23 08:00] VITALS: BP 121/76
[2020-01-23 10:54] LABS: CHOLESTEROL 154 mg/dL (<200); HDL CHOLESTEROL 56 mg/dL (>40); LDL CHOLESTEROL 85 mg/dL (<100); TC:HDL 2.8 Ratio (Not establshd); TRIGLYCERIDE 67 mg/dL (<150); VLDL 13 mg/dL (<40)
[2020-01-23 10:55] LABS: SERUM ASSESSMENT Clear
[2020-01-23 12:53] VITALS: BP 135/76
[2020-01-23 17:00] VITALS: BP 120/59
[2020-01-23 20:15] VITALS: BP 118/51
[2020-01-24] VITALS: BP 110/50
[2020-01-24 02:04] LABS: GLYCOHEMOGLOBIN (HGB A1C) 8.6 % (4.8-5.6)
[2020-01-24 04:00] VITALS: BP 107/30
[2020-01-24 08:25] VITALS: BP 111/56
[2020-01-24] MEDS ORDERED: CARVEDILOL3.125 MG PO (09:01)
--- NOTE | 2020-01-24 10:02 | EKG ---
[place] [address] ELECTROCARDIOGRAM REPORT Name: CINTHYA MILES [address] [id number] Admission: 01/22/20 Attend Phys: Keaton Benson, Discharge: Date of : 48 Date of Service: 01/22/20 1602 Report #: [id number] THIS REPORT FOR: //name// [facility] ED Test Date: 2020-01-22 Test Time: 16:02:33 Pat Name: CINTHYA MILES Department: Room: [facility] Gender: M Director Business Systems: CHICA : 1950 Requested By: Obey Veliz Order Number: [id number] MD: Eliceo Burkett Measurements Intervals [place] Rate: 118 P: 0 TN: 72 QRS: -62 QRSD: 95 T: 21 QT: 352 QTc: 494 Interpretive Statements atrial fibrillation Inferoposterior infarct, old Prolonged QT interval Compared to ECG 07/23/2019 10:41:22 Prolonged QT interval now present Sinus rhythm no longer present Myocardial infarct finding still present Electronically Signed On 01-24-2020 10:01:58 CDT by Eliceo Burkett [email or web address] <ELECTRONICALLY SIGNED> By: Eliceo Burkett MD, FACC 01/24/20 1001 160 1602 Eliceo Burkett MD, FAC /EPI
[2020-01-24 12:00] VITALS: BP 120/76
--- NOTE | 2020-01-24 14:34 | 2DMMODE ---
[place] [address] 2 D/M-MODE ECHOCARDIOGRAM Name: CINTHYA MILES Hallie Room: [address] [place]#: [id number] Admission: 01/22/20 Attend Phys: Keaton Benson, Discharge: Date of : 48 Date of Service: 01/24/20 1434 Report #: [id number] THIS REPORT FOR: cc: FAM - No family physician/PCP FAM - No family physician/PCP Eliceo Burkett MD [facility] ~ ADDENDUM APPROVED REPORT Study performed: 01/24/2020 13:32:30 EXAM: Comprehensive 2D, Doppler, and color-flow Echocardiogram Patient Location: In-Patient Room #: 210 Status: routine BSA: 2.73 HR: 68 bpm BP: 107/30 mmHg Rhythm: NSR Other Information Study Quality: Good Indications Chest Pain 2D Dimensions IVSd: 13.48 (7-11mm) LVOT Diam: 22.74 (18-24mm) LVDd: 59.85 mm PWd: 13.29 (7-11mm) Ascending Ao: 36.83 (22-36mm) LVDs: 36.36 (25-40mm) Aortic Root: 37.43 mm Aortic Valve AoV Peak Nigel.: 1.43 m/s AO Peak Gr.: 8.18 mmHg LVOT Max P.80 mmHg AO Mean Gr.: 4.54 mmHg LVOT Mean P.44 mmHg LVOT Max V: 1.10 m/s AO V2 VTI: 28.87 cm LVOT Mean V: 0.72 m/s SRIKANHT (VTI): 2.86 cm2 LVOT V1 VTI: 20.35 cm Mitral Valve E/A Ratio: 0.69 MV Decel. Time: 246.67 ms MV E Max Nigel.: 0.52 m/[place] [address] 2 D/M-MODE ECHOCARDIOGRAM Name: CINTHYA MILES Room: [address] MDyan#: [id number] Admission: 01/22/20 Attend Phys: Keaton Benson, Discharge: Date of : 48 Date of Service: 01/24/20 1434 Report #: [id number] PHT: 71.53 ms MVA (PHT): 3.08 cm2 TDI E/Lateral E': 4.73 E/Medial E': 4.33 Medial E' Nigel.: 0.12 m/s Lateral E' Nigel.: 0.11 m/s Pulmonary Valve PV Peak Nigel.: 1.12 m/s PV Peak Gr.: 5.06 mmHg Left Ventricle The left ventricle is normal size. endocardium was not well visualized making segmental wall motion analysis difficult Mild concentric left ventricular hypertrophy. Left ventricular systolic function is normal. The left ventricular ejection fraction is within the normal range. Grade I - abnormal relaxation pattern. Right Ventricle The right ventricle is normal size. The right ventricular systolic function is normal. Atria The left atrium size is normal. The right atrium size is normal. Aortic Valve The Aortic valve is sclerotic. No aortic regurgitation is present. There is no aortic valvular stenosis. Mitral Valve The mitral valve is normal in structure. There is trace mitral valve regurgitation noted. No evidence of mitral valve stenosis. Tricuspid Valve The tricuspid valve is normal in structure. Unable to assess PA pressure. Trace tricuspid regurgitation. Pulmonic Valve The pulmonary valve is normal in structure. There is no pulmonic valvular regurgitation. Great Vessels The aortic root is normal in size. IVC is normal in size and collapses >50% [place] [address] 2 D/M-MODE ECHOCARDIOGRAM Name: CINTHYA MILES Room: [address]#: [id number] Admission: 01/22/20 Attend Phys: Keaton Benson, Discharge: Date of : 48 Date of Service: 01/24/20 1434 Report #: [id number] Pericardium There is no pericardial effusion. <Conclusion> Mild concentric left ventricular hypertrophy. Left ventricular systolic function is normal. The left ventricular ejection fraction is within the normal range. The Aortic valve is sclerotic. <ELECTRONICALLY SIGNED> By: Eliceo Burkett MD, [facility] 01/24/20 1434 1434 1434 Eliceo Burkett MD, FAC /INF
[2020-01-24 16:00] VITALS: BP 110/76
--- NOTE | 2020-01-24 16:01 | NUR ---
Pt is A&O. Resides at home alone. Independent, Pt continues to cook and drive, has a cleaning lady that comes in. Pt has a cane and wc, does not use wc at this time. Pt wears home o2 at [facility], provided through [employer] and [facility] Hx of HH. No hx of SNF. Supportive friends and neighbors. Pt to dc to home today pending stress test and echo. Following.
--- NOTE | 2020-01-24 18:45 | NUR ---
RECEIVED REPORT. ASSUMED CARE OF PT AROUND 0730. PT A&O X4. AM ASSESSMENT AND VITALS COMPLETED CHARTED. MEDS PER EMAR. PT COMPLETED RESTING PORTION OF STRESS TEST TODAY, WILL HAVE THE ACTIVE PORTION TOMORROW. NPO AT MIDNIGHT. PT DENIED PAIN OR DISCOMFORT. UP AD RAMONE. BS LOW AT 210 - DINNER GIVEN AND ORANGE JUICE, PT ASYMPTOMATIC WITH LOW BS. UP VOIDING WELL. ALL NEEDS MET AT THIS TIME. PT CURRENTLY RESTING IN BED. CALL LIGHT IS WITHIN REACH. HOURLY ROUNDING PERFORMED. LOW FALL RISK PRECAUTIONS IN PLACE.
[2020-01-24 20:00] VITALS: BP 104/65
--- NOTE | 2020-01-24 20:00 | NUR ---
RECEIVED REPORT AND ASSUMED CARE OF PT, ASSESSMENT COMPLETED. PT SITTING UP IN CHAIR. JAMIE LOWER LEGS AND ANKLES WITH 2+ EDEMA. O2 OFF AT THIS TIME. DENIES SOB OR CHEST PAIN. TELEMETRY ON SHOWING SR WITH 1ST AVB. WILL CONT TO MONITOR AND ASSIST NEEDED.
[2020-01-25] VITALS: BP 125/76
[2020-01-25 04:00] VITALS: BP 105/58
--- NOTE | 2020-01-25 06:57 | NUR ---
SLEPT WELL TONIGHT, O2 ON AT 2L/NC. LUNG SOUNDS MOIST AND COARSE. NO CHANGE IN ASSESSMENT. GAIT STEADY TO AND FROM BR. TELEMETRY CONT TO SHOW SR WITH 1ST AVB. NPO SINCE [place] FOR STRESS TEST. HS GOALS OF REST AND SAFETY ACHIEVED. HOURLY ROUNDING OBSERVED.
[2020-01-25 08:00] VITALS: BP 108/56
--- NOTE | 2020-01-25 14:36 | CARDNUC ---
[place] [address] CARDIAC NUCLEAR IMAGING REPORT Name: CINTHYA MILES Hallie Room: [address] M.R.#: [id number] Admission: 01/22/20 Attend Phys: Keaton Benson, Discharge: Date of : 48 Date of Service: 01/25/20 1436 Report #: [id number] THIS REPORT FOR: cc: FAM - No family physician/PCP FAM - No family physician/PCP Peter Rajan MD [facility] ~ APPROVED REPORT Study performed: 01/23/2020 10:32:00 Indication: Chest pain, Dyspnea Patient Location: In-Patient Room #: 210 Stress Tech: Maria Isabel Mejia Stress Nurse: Marija Jackson RN Ht: 6 ft 2 in Wt: 343 lbs BSA: 2.73 m2 BMI: 44.03 Medical History Medical History: Angina, PAFib, CAD s/p AL, CAD s/p stent, Cardiomyopathy, CHF, COPD, 1st Deg AV Block, Morbid Obesity, HTN, HLD, Past smoker, family HX of CAD, , Diabetic Insulin. Medications: ASA 81 Mg, Terazosin, Dronedarone, Atorvastatin, Carvedilol, Imdur, Lisinopril, NTG. Allergies: Codeine, Morphine. Cardiac Risk Factors: Age, Diabetes (insulin), FHX of CAD, HTN, Hyperlipidemia, SOB, Past Smoker, 1st Deg AV block, cardiomyopathy, CHF, Morbid obesity, PAFib. Previous Cardiac Procedures: Myocardial infarction, PCI. Pretest Chest Pain Characteristics: No chest pain Exercise History: Sedentary Physical Disabilities: Left knee replacement, unsteady/unstable gait, morbid obesity. Meds Held (24 hrs): Imdur, Carvedilol, NTG. Resting Data Rest SPECT myocardial perfusion imaging was performed in supine position 45 minutes following the intravenous injection of 31.1 mCi of Tc-99m Sestamibi. Time of rest injection: 1200 Date: 01/24/2020 The images were gated to evaluate regional wall motion and calculate left ventricular ejection fraction. Administration Route: [place] [address] CARDIAC NUCLEAR IMAGING REPORT Name: CINTHYA MILES Room: [address]#: [id number] Admission: 01/22/20 Attend Phys: Keaton Benson, Discharge: Date of : 48 Date of Service: 01/25/20 1436 Report #: [id number] Administration Site: Left Wrist Pharmacologic Stress Pharmacologic stress test was performed by injecting Regadenoson 0.4 mg IV push over 10-15 seconds immediately followed by the intravenous injection of 33.0 mCi of Tc-99m Sestamibi. Time of stress injection: : Date: 01/25/2020 Administration Route: IV Administration Site: Left Wrist Heart Rate at time of stress injection: 105 bpm. Gated Stress SPECT was performed 40 minutes after stress injection. The images were gated to evaluate regional wall motion and calculate left ventricular ejection fraction. Stress Test Details Stress Test: Pharmacologic stress testing performed using 0.4 mg of regadenoson per 5 mL given IV over 10 seconds. Reason for pharmacologic stress test: Left knee replacement, unsteady/unstable gait, morbid obesity.. HR Max Heart Rate (APMHR): 150 bpm Resting HR: 66 bpm Target HR (85% APMHR): 127 bpm Max HR Achieved: 105 bpm % of APMHR: 70 Recovery HR: 76 bpm BP Resting BP: 109/62 mmHg Max BP: 78/56 mmHg Recovery BP: 113/57 mmHg ECG Resting ECG: Sinus Rhythm Stress ECG: Sinus Tachycardia ST Change: None Arrhythmia: None Recovery ECG: Sinus Rhythm Recovery ST Change: None Recovery Arrhythmia: None Clinical Reason for Termination: Completed protocol Stress Symptoms: Abdominal discomfort, Lightheaded, Dizziness. Exercise duration: 00 min 00 sec Exercise capacity: 1.00 [place] [address] CARDIAC NUCLEAR IMAGING REPORT Name: CINTHYA MILES Room: [address]#: [id number] Admission: 01/22/20 Attend Phys: Keaton Benson, Discharge: Date of : 48 Date of Service: 01/25/20 1436 Report #: [id number] The patient tolerated Lexiscan infusion without significant cardiac symptoms. Nurse Comments A 69 year old male inpatient presented for a sitting Lexiscan r/t chest pain and dyspnea. Test well tolerated. Recovery B/P and stomach discomfort required 60 Mg IV caffeine, effective. Patient was escorted by staff via wheelchair to Nuclear Medicine for imaging. Patient was stable and stated he felt good at that time. Prior to test, Respiratory was called to administer a breathing treatment r/t coarse, wheezing sounds in lungs bilaterally. Stress ECG Conclusion The baseline twelve-lead EKG shows sinus rhythm without significant ST segment abnormality. EKGs obtained during and post Lexiscan infusion show sinus rhythm and sinus tachycardia with no significant ST segment changes when compared to baseline. There were no stress-induced arrhythmias. Study Quality Study: Good Artifact: No artifact Study Data At rest, the left ventricular ejection fraction was 44%.. Post stress, the left ventricular ejection was 51%.. TID = 0.88. Perfusion Perfusion images show a large in size severe intensity fixed defect involving the basal to apical inferior wall consistent with prior infarct. There were no reversible defects to suggest ischemia. No other defects are identified. Wall Motion Wall motion abnormality involving the inferior wall. The remaining guillaume appear to move normally. Nuclear Conclusion ECG Findings: negative for ischemia Clinical Findings: negative for ischemia Nuclear Findings: negative for ischemia Exercise Capacity: not assessed Left Ventricular Function: abnormal Risk Study: low Perfusion study suggest prior inferior [place] [address] CARDIAC NUCLEAR IMAGING REPORT Name: CINTHYA MILES Room: [address] MDarrianR.#: [id number] Admission: 01/22/20 Attend Phys: Keaton Benson, Discharge: Date of : 48 Date of Service: 01/25/20 1436 Report #: [id number] systolic function is mildly decreased. This is not a high risk study. <Conclusion> The baseline twelve-lead EKG shows sinus rhythm without significant ST segment abnormality. EKGs obtained during and post Lexiscan infusion show sinus rhythm and sinus tachycardia with no significant ST segment changes when compared to baseline. There were no stress-induced arrhythmias. <ELECTRONICALLY SIGNED> By: Peter Rajan MD, FACC 01/25/20 1436 143 143 Peter Rajan MD, FACC /INF
[2020-01-25 15:51] VITALS: BP 108/56
--- NOTE | 2020-01-25 16:55 | NUR ---
RECIEVED REPORT ON PATIENT AROUND 729. ASSUMED CARE. ASSESSMENT AND VITALS CHARTED. MEDICATION GIVEN PER SEP. WENT DOWN TO STRESS TEST. CAME BACK TO UNIT. RECIEVED DISCHARGE ORDERS BY DR DUNAWAY. GAVE PATIENT DISCHARGE INSTRUCTIONS. PATIENT COMMUNICATED UNDERSTANDING OF DISCHARGE. SPECIFIED TO PATIENT NOT TO TAKE CARDEVILOL UNTIL CARDIOLOGY APPOINTMENT IF RECOMMENDED. IV AND HEART MONITOR TAKEN OFF PATIENT. PATIENT HAD BELONGINGS, AND TAKEN OFF UNIT BY WHEELCHAIR WITH NURSING STAFF.
--- NOTE | 2020-01-26 08:44 | CON ---
[address] [address] CONSULTATION Name: CINTHYA MILES Hallie Room: [address] Che[place] Carter#: [id number] Admission: 01/22/20 Attend Phys: Keaton Benson MD Discharge: 01/25/20 Date of : 48 Report #: [id number] THIS REPORT FOR: //name// cc: SOLANGE Tamez family physician/PCP SOLANGE - Joi family physician/PCP ~ THIS REPORT FOR: //name// CC: SOLANGE physician/PCP Keaton Benson DATE OF SERVICE: 01/23/2020 INDICATION: Chest pain. HISTORY OF PRESENT ILLNESS: The patient is a 69-year-old gentleman who is well known to me. He has a history of coronary artery disease with percutaneous coronary intervention on multiple occasions. Most recently in 11/2018, he had an acutely occluded right coronary stent opened with repeat intervention. He has had no intervention since that time. In that acute setting, his ejection fraction was 25-30%. By most recent noninvasive studies, his ejection fraction is 55%. He does have a history of chronic combined heart failure. He is presently euvolemic. He has a history of paroxysmal atrial fibrillation. He is maintaining sinus rhythm for the most part on Multaq 400 mg b.i.d. He is not anticoagulated as he had severe epistaxis with Xarelto in the past. He remains on dual antiplatelet therapy with Effient and aspirin at this time. He was admitted to the hospital yesterday afternoon with complaints of midsternal chest discomfort associated with shortness of breath persisting for 4-5 hours. The pain somewhat waxed and waned over this period of time. Cardiac enzymes are unremarkable. EKG shows sinus rhythm with inferior Q-waves. No acute ST or T-wave abnormalities were noted. At the time of interview, the patient is pain free. He is without complaint at this time. PAST MEDICAL HISTORY: 1. Coronary artery disease. 2. Paroxysmal atrial fibrillation. 3. Chronic combined heart failure. 4. COPD. 5. Ischemic cardiomyopathy. 6. Hyperlipidemia. 7. History of hypertension. 8. Type 2 diabetes mellitus. ALLERGIES: CODEINE AND MORPHINE. HOME MEDICATIONS: Multaq 400 mg p.o. b.i.d., aspirin 81 mg daily, Effient [address] [place] [address] CONSULTATION Name: CINTHYA MILES Hallie Room: [address] [place] Carter#: [id number] Admission: 01/22/20 Attend Phys: Keaton Benson MD Discharge: 01/25/20 Date of : 48 Report #: [id number] daily, lisinopril 5 mg daily, atorvastatin 40 mg at bedtime, Nitrostat sublingual p.r.n., Levemir 45 units subcu b.i.d., lispro insulin 24 units subcu at dinner, 24 units at lunch and units at breakfast, Claritin 10 mg daily, Paxil 10 mg daily, terazosin 5 mg b.i.d., albuterol nebulizer every 6 hours p.r.n., albuterol inhaler 2 puffs p.r.n. shortness of breath, metformin 1000 mg b.i.d. PAST SURGICAL HISTORY: 1. Right knee repair x 2. 2. Left hand carpal tunnel repair. 3. Left knee replacement. SOCIAL HISTORY: The patient quit smoking remotely. He does not drink alcohol. FAMILY HISTORY: Noncontributory. PHYSICAL EXAMINATION: VITAL SIGNS: Stable. Blood pressure 121/76 and pulse is 70 and regular. GENERAL: This is a morbidly obese, pleasant white male, in no distress. HEENT: Head is normocephalic, atraumatic. Extraocular muscles are intact. Mucous membranes are moist. NECK: Shows no jugular venous distention. There are no carotid bruits. CHEST: Reveals diminished breath sounds in the bases. I do not appreciate wheezes or rales. CARDIOVASCULAR: Reveals a regular rhythm without gallop or murmur. ABDOMEN: Reveals a protuberant abdomen and bowel sounds are present. EXTREMITIES: Show no significant edema. SKIN: Dry. IMAGING: A 12-lead EKG shows sinus rhythm without acute ST or T-wave abnormality. There are Q-waves inferiorly. LABORATORY DATA: Labs are reviewed. Troponins are unremarkable x 3 sets. IMPRESSION AND RECOMMENDATIONS: 1. Chest pain in patient with history of coronary artery disease. I do not see evidence of acute coronary syndrome. We will proceed with noninvasive stress testing. Further evaluation pending the results of that study. 2. History of ischemic cardiomyopathy with normalization of ejection fraction on most recent studies. We will repeat echocardiogram. Resume carvedilol at low dose. Continue lisinopril at current dose. 3. Paroxysmal atrial fibrillation, maintaining sinus rhythm on Multaq 400 mg b.i.d. He is not anticoagulated due to severe epistaxis in the past. 4. Chronic combined heart failure, appears compensated at this point in time. 5. Hypertension. Blood pressure is stable at present. We will follow clinically. 6. Hyperlipidemia. Continue current statin agent. [place] [address] [place] [address] CONSULTATION Name: CINTHYA MILES Room: [address]#: [id number] Admission: 01/22/20 Attend Phys: Keaton Benson MD Discharge: 01/25/20 Date of : 48 Report #: [id number] 7. Type 2 diabetes mellitus per primary physician. 8. Chronic obstructive pulmonary disease, presently stable. <ELECTRONICALLY SIGNED> By: Peter Rajan MD, FACC 01/26/20 0844 1049 [id number] Rajan MD, FACC /nt
== END 2020-01-25 16:55 | disposition home or self-care (01) ==
LOC: M.ERS 15:57 → M.2W 17:10 → M.TBA-ER 17:10 → M.2W 18:00
PROVIDERS: Family Medicine; ADMIT Internal Medicine; ATTEND Internal Medicine
DX: I25.110 Atherosclerotic heart disease of native coronary artery with unstable angina pectoris (principal); E66.9 Obesity, unspecified; J44.9 Chronic obstructive pulmonary disease, unspecified; F41.1 Generalized anxiety disorder; D63.8 Anemia in other chronic diseases classified elsewhere; E11.9 Type 2 diabetes mellitus without complications; I11.0 Hypertensive heart disease with heart failure; I50.42 Chronic combined systolic (congestive) and diastolic (congestive) heart failure; F32.9 Major depressive disorder, single episode, unspecified; I25.2 Old myocardial infarction; D69.6 Thrombocytopenia, unspecified; I48.0 Paroxysmal atrial fibrillation; I25.5 Ischemic cardiomyopathy; Z87.891 Personal history of nicotine dependence

== ENCOUNTER 2020-04-06 15:00 | Inpatient (IN) | payer MEDICARE ==
[~2020-04-06] VITALS: Ht 188 cm; Wt 166.0 kg
[~2020-04-06 15:00] MED LIST changes: +CARVEDILOL3.125 MG PO
[2020-04-06 15:11] VITALS: BP 136/75
[2020-04-06 15:37] LABS: ABSOLUTE BASOPHILS 0.1 thou/uL (0.0-0.2); ABSOLUTE EOSINOPHILS 0.1 thou/uL (0.0-0.7); ABSOLUTE MONOCYTES 0.4 thou/uL (0.0-1.2); ABSOLUTE NEUTROPHILS 5.6 thou/uL (1.6-8.1); BASOPHILS 0.9 %; EOSINOPHILS 1.7 %; HEMATOCRIT 37.4 % (42.0-52.0); HEMOGLOBIN 12.7 gm/dL (14.0-18.0); LYMPHOCYTES 14.1 %; MCH 29.6 pg (26.0-34.0); MCV 87.2 fL (80.0-100.0); MONOCYTES 6.1 %; MPV 8.2 fl. (7.2-11.1); NUCLEATED RBCS 0 /100WBC; PLATELET COUNT* 175 thou/uL (150-400); POLYS 77.2 %; RBC 4.29 mil/uL (4.50-6.00); RDW-CV 14.3 % (10.5-14.5); WBC 7.2 thou/uL (4.0-11.0)
[2020-04-06 15:48] LABS: CALCIUM 8.6 mg/dL (8.5-10.1); CREATININE 1.1 mg/dL (0.6-1.3); POTASSIUM 3.9 mmol/L (3.5-5.1)
[2020-04-06 15:49] LABS: APTT 23.3 Seconds (25.0-31.3); PROTIME 10.4 Seconds (9.20-11.50)
[2020-04-06 15:58] LABS: ALBUMIN 3.5 g/dL (3.4-5.0); MAGNESIUM 1.4 mg/dL (1.8-2.4); TOTAL BILIRUBIN 0.4 mg/dL (<0.1-1.0); TOTAL PROTEIN 6.6 g/dL (6.4-8.2)
[2020-04-06 18:22] LABS: CHOLESTEROL 120 mg/dL (<200); HDL CHOLESTEROL 48 mg/dL (>40); LDL CHOLESTEROL 47 mg/dL (<100); SERUM ASSESSMENT CLEAR; TC:HDL 2.5 Ratio (Not establshd); TRIGLYCERIDE 127 mg/dL (<150); VLDL 25 mg/dL (<40)
[2020-04-06 20:00] VITALS: BP 122/80
[2020-04-07] VITALS (7 sets, daily range): BP systolic 96–129; BP diastolic 48–76
[2020-04-07 05:22] LABS: HEMATOCRIT 34.3 % (42.0-52.0); HEMOGLOBIN 11.6 gm/dL (14.0-18.0); MCH 29.8 pg (26.0-34.0); MCHC 33.9 g/dL (28.0-37.0); MCV 87.7 fL (80.0-100.0); MPV 8.7 fl. (7.2-11.1); RBC 3.91 mil/uL (4.50-6.00); WBC 7.3 thou/uL (4.0-11.0)
[2020-04-07 05:34] LABS: ALBUMIN 3.2 g/dL (3.4-5.0); CALCIUM 8.7 mg/dL (8.5-10.1); CREATININE 1.3 mg/dL (0.6-1.3); POTASSIUM 3.7 mmol/L (3.5-5.1); TOTAL BILIRUBIN 0.5 mg/dL (<0.1-1.0); TOTAL PROTEIN 5.9 g/dL (6.4-8.2)
--- NOTE | 2020-04-07 10:09 | EKG ---
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: DIANA : 1950 Requested By: Federico Arredondo Order Number: [id number] MD: Eliceo Burkett Measurements Intervals [place] Rate: 100 P: 92 MA: 199 QRS: 7 QRSD: 103 T: -9 QT: 366 QTc: 473 Interpretive Statements Sinus tachycardia Ventricular premature complex Inferior infarct, old Baseline wander in lead(s) V2,V4 Compared to ECG 01/22/2020 16:02:33 Ventricular premature complex(es) now present Atrial fibrillation no longer present Prolonged QT interval no longer present Myocardial infarct finding still present Electronically Signed On 04-07-2020 10:09:13 CDT by Eliceo Burkett [email or web address] <ELECTRONICALLY SIGNED> By: Eliceo Burkett MD, [facility] 04/07/20 1009 1519 Eliceo Burkett MD, [facility] /EPI
[2020-04-08 02:06] LABS: GLYCOHEMOGLOBIN (HGB A1C) 7.9 % (4.8-5.6)
[2020-04-08 03:36] LABS: HEMATOCRIT 35.3 % (42.0-52.0); HEMOGLOBIN 11.8 gm/dL (14.0-18.0); MCHC 33.3 g/dL (28.0-37.0); MCV 87.3 fL (80.0-100.0); MPV 8.7 fl. (7.2-11.1); RBC 4.05 mil/uL (4.50-6.00); WBC 13.6 thou/uL (4.0-11.0)
[2020-04-08 03:47] LABS: CALCIUM 9.1 mg/dL (8.5-10.1); CREATININE 1.5 mg/dL (0.6-1.3); POTASSIUM 4.2 mmol/L (3.5-5.1)
[2020-04-08 04:06] VITALS: BP 141/48
[2020-04-08 12:14] VITALS: BP 124/70
[2020-04-08 17:23] VITALS: BP 126/71
[2020-04-08 20:00] VITALS: BP 131/69
[2020-04-08 23:26] VITALS: BP 89/50
[2020-04-09 01:00] VITALS: BP 92/53
[2020-04-09 04:33] VITALS: BP 125/52
[2020-04-09 08:00] VITALS: BP 133/79
[2020-04-09 11:35] VITALS: BP 107/58
[2020-04-09 13:09] LABS: CALCIUM 9.3 mg/dL (8.5-10.1); CREATININE 1.6 mg/dL (0.6-1.3); MAGNESIUM 1.9 mg/dL (1.8-2.4)
[2020-04-09 16:14] VITALS: BP 103/47
[2020-04-09 19:45] VITALS: BP 114/70
[2020-04-10] VITALS: BP 111/69
[2020-04-10 04:39] LABS: CALCIUM 9.1 mg/dL (8.5-10.1); CREATININE 1.8 mg/dL (0.6-1.3); POTASSIUM 4.4 mmol/L (3.5-5.1)
[2020-04-10 08:00] VITALS: BP 122/74
[2020-04-10] MEDS ORDERED: PREDNISONE 10 M10 MG PO (08:33)
[2020-04-10] MEDS ORDERED: LASIX 40 MG TAB40 MG PO (08:33)
[2020-04-10] MEDS ORDERED: COREG6.25 MG PO (08:33)
[2020-04-10] MEDS ORDERED: AZITHROMYCIN 2250 MG PO (08:33)
[2020-04-10] MEDS ORDERED: LASIX 40 MG TAB40 M1 PO (08:53)
[2020-04-10 09:01] VITALS: BP 122/74
== END 2020-04-10 11:30 | disposition home health service (06) | DRG 291 ==
LOC: M.ERS 15:00 → M.TBA-ER 16:11 → M.2W 20:35
PROVIDERS: Emergency Medicine Emergency Medical Services; Internal Medicine; Internal Medicine Cardiovascular Disease; ADMIT Internal Medicine; ATTEND Internal Medicine
DX: I11.0 Hypertensive heart disease with heart failure (principal); J96.01 Acute respiratory failure with hypoxia; Z68.42 Body mass index [BMI] 45.0-49.9, adult; J44.1 Chronic obstructive pulmonary disease with (acute) exacerbation; E44.1 Mild protein-calorie malnutrition; I50.43 Acute on chronic combined systolic (congestive) and diastolic (congestive) heart failure; E66.01 Morbid (severe) obesity due to excess calories; M19.90 Unspecified osteoarthritis, unspecified site; I25.10 Atherosclerotic heart disease of native coronary artery without angina pectoris; F41.1 Generalized anxiety disorder; I48.0 Paroxysmal atrial fibrillation; E78.5 Hyperlipidemia, unspecified; F32.9 Major depressive disorder, single episode, unspecified; E11.9 Type 2 diabetes mellitus without complications; G47.33 Obstructive sleep apnea (adult) (pediatric); I42.9 Cardiomyopathy, unspecified; I95.9 Hypotension, unspecified; Z20.828 Contact with and (suspected) exposure to other viral communicable diseases; Z96.652 Presence of left artificial knee joint; Z79.4 Long term (current) use of insulin; I25.2 Old myocardial infarction; Z79.82 Long term (current) use of aspirin; Z79.899 Other long term (current) drug therapy; Z88.5 Allergy status to narcotic agent; Z87.891 Personal history of nicotine dependence; Z82.49 Family history of ischemic heart disease and other diseases of the circulatory system; Z95.5 Presence of coronary angioplasty implant and graft; Z99.81 Dependence on supplemental oxygen

== ENCOUNTER 2020-04-18 14:21 | Observation (INO) | payer MEDICARE ==
[~2020-04-18] VITALS: Ht 188 cm; Wt 158.8 kg
--- NOTE | ~2020-04-18 | CON ---
[address] [address] CONSULTATION Name: CINTHYA MILES Room: [address] [place] Carter#: [id number] Admission: 04/18/20 Attend Phys: Lilian Kevin MD Discharge: 04/19/20 Date of : 48 Report #: [id number] THIS REPORT FOR: //name// cc: LINDSEY JETT MD, CHADWICK MD ~ THIS REPORT FOR: //name// CC: LINDSEY Kevin DATE OF SERVICE: 04/18/2020 HISTORY OF PRESENT ILLNESS: This is a 69-year-old male patient who was evaluated by me for an episode of syncope. This patient says it lasted for a very short period of time. They were ambulating him without oxygen to see if he can tolerate that. He also wanted to see how low his oxygen level goes. He is an oxygen dependent all the time. Then, he has an episode of syncope. His blood sugar was okay at that time, but he thinks his heart rate may have been lower. He has not had any further symptoms since that time. REVIEW OF SYSTEMS: Positive for COPD, but he has not smoked for a long time now. One of the history says that he does have atrial fibrillation, but he has not been able to tolerate anticoagulation. He does have a history of diabetes and heart failure. He has morbid obesity and COPD. That was his relevant 14-point review of system. PAST MEDICAL HISTORY: Positive for what looks like very severe COPD. FAMILY HISTORY: Unremarkable. SOCIAL HISTORY: He smoked more than 30 years ago and he does not use any alcohol. He also had knee replaced, colitis, history of anxiety and depression. PHYSICAL EXAMINATION: GENERAL: He is alert, responsive, able to follow simple and complex command. His speech looks unremarkable. He thinks his memory is back to his baseline. His cranial nerve examination 212 looks unremarkable. His strength is reasonable on both sides. His reflexes are not elicitable. He has diminished pinprick symmetrically at least below the knees, but may be somewhat above the knee. He is able to ambulate. When I make him stand, he is reasonably stable on closing his eyes. I could not look at his fundus. His htjntc-yi-iilp is normal. He is still short of breath. He is on oxygen. His blood pressure is 109/52. His pulse is 97, [place] [address] CONSULTATION Name: CINTHYA MILES Room: [address]#: [id number] Admission: 04/18/20 Attend Phys: Lilian Kevin MD Discharge: 04/19/20 Date of : 48 Report #: [id number] LABORATORY DATA: Indicate a white count of 12.1. His GFR is 60. His blood sugar has been high. IMPRESSION: There is some concern in this patient because he has history of atrial fibrillation, but he is not anticoagulated. However, the present episode appeared to be non-neurological, but I cannot be certain. Posterior fossa, transient ischemic attack or cerebrovascular accident all this come in differential. I recommended to the patient that he has an MRI of the brain and MRA of the head done. He does not want to do MRI. I discussed with him the reason I want to do an MRI, he understood that, but he declined MRI. He really wants to go home. He is on aspirin. I talked to the patient's nurse also. Since he does not want any further workup including MRI and MRA of the head and any alternative testing, the patient can be dismissed from neurological perspective and as I understand from the nurses, he is already dismissed. If he changes his mind, he can contact us and we can do the MRI or even CT angiogram in this patient, although MRI will be better. The patient is competent to make his decision and this is his decision and I talked to the nurses. He is on antiplatelet therapy and he can continue to be on antiplatelet therapy with aspirin. He is already on 80 mg of statin. If he desires further workup, he can come to our office and we can carry it out there. Thank you very much for this referral. By: 1508 36Mao Howe MD /maria esther
[~2020-04-18 14:21] MED LIST changes: +LASIX 40 MG TAB40 M1 PO
[2020-04-18 14:28] VITALS: BP 128/44
[2020-04-18 15:02] LABS: ABSOLUTE BASOPHILS 0.1 thou/uL (0.0-0.2); ABSOLUTE EOSINOPHILS 0.2 thou/uL (0.0-0.7); ABSOLUTE LYMPHOCYTES 1.4 thou/uL (0.8-5.3); ABSOLUTE MONOCYTES 0.6 thou/uL (0.0-1.2); ABSOLUTE NEUTROPHILS 9.8 thou/uL (1.6-8.1); BASOPHILS 0.8 %; EOSINOPHILS 1.3 %; HEMATOCRIT 38.9 % (42.0-52.0); LYMPHOCYTES 11.6 %; MCH 29.1 pg (26.0-34.0); MCHC 33.3 g/dL (28.0-37.0); MCV 87.3 fL (80.0-100.0); MONOCYTES 4.6 %; MPV 8.5 fl. (7.2-11.1); NUCLEATED RBCS 0 /100WBC; PLATELET COUNT* 160 thou/uL (150-400); POLYS 81.7 %; RBC 4.46 mil/uL (4.50-6.00); RDW-CV 14.5 % (10.5-14.5); WBC 12.1 thou/uL (4.0-11.0)
[2020-04-18 15:11] LABS: CALCIUM 8.6 mg/dL (8.5-10.1); CREATININE 1.2 mg/dL (0.6-1.3); POTASSIUM 4.4 mmol/L (3.5-5.1)
[2020-04-18 15:14] LABS: APTT 21.7 Seconds (25.0-31.3); PROTIME 10.2 Seconds (9.20-11.50)
[2020-04-18 15:21] LABS: ALBUMIN 3.3 g/dL (3.4-5.0); TOTAL BILIRUBIN 0.5 mg/dL (<0.1-1.0); TOTAL PROTEIN 6.1 g/dL (6.4-8.2)
[2020-04-18 19:55] VITALS: BP 115/70
[2020-04-18 20:00] VITALS: BP 122/77
[2020-04-18] MEDS ORDERED: DICLOFENAC SOD100 GM TOP (22:58)
[2020-04-19 00:55] VITALS: BP 112/52
[2020-04-19 04:00] VITALS: BP 127/79
[2020-04-19 08:00] VITALS: BP 118/53
--- NOTE | 2020-04-19 10:13 | EKG ---
[place] [address] ELECTROCARDIOGRAM REPORT Name: CINTHYA MILES Room: [address]#: [id number] Admission: 04/18/20 Attend Phys: Lilian Kevin, Discharge: Date of : 48 Date of Service: 04/18/20 1426 Report #: [id number] THIS REPORT FOR: //name// [facility] ED Test Date: 2020-04-18 Test Time: 14:26:58 Pat Name: CINTHYA MILES Department: Room: [facility] Gender: M Police Aide: STACEY : 1950 Requested By: Alana Lares Order Number: [id number] MD: Eliceo Burkett Measurements Intervals [place] Rate: 71 P: 8 ID: 243 QRS: -1 QRSD: 115 T: 18 QT: 407 QTc: 443 Interpretive Statements Sinus rhythm Ventricular premature complex Prolonged ID interval Nonspecific intraventricular conduction delay Inferior infarct, old Compared to ECG 04/06/2020 15:19:46 First degree AV block now present Intraventricular conduction delay now present Sinus tachycardia no longer present Myocardial infarct finding still present Electronically Signed On 04-19-2020 10:13:35 CDT by Eliceo Burkett [email or web address] <ELECTRONICALLY SIGNED> By: Eliceo Burkett MD, [facility] 04/19/20 1013 1426 1426 Eliceo Burkett MD, [facility] /EPI
[2020-04-19 12:00] VITALS: BP 109/52
[2020-04-19 15:31] VITALS: BP 109/52
[2020-04-19 16:12] VITALS: BP 109/52
== END 2020-04-19 16:29 | disposition home health service (06) ==
LOC: M.ERS 14:21 → M.TBA-ER 17:56 → M.2W 17:56
PROVIDERS: Personal Emergency Response Attendant; ADMIT Internal Medicine; ATTEND Internal Medicine
DX: R55 Syncope and collapse (principal); I25.118 Atherosclerotic heart disease of native coronary artery with other forms of angina pectoris; I11.0 Hypertensive heart disease with heart failure; I50.42 Chronic combined systolic (congestive) and diastolic (congestive) heart failure; E11.9 Type 2 diabetes mellitus without complications; K21.9 Gastro-esophageal reflux disease without esophagitis; J44.9 Chronic obstructive pulmonary disease, unspecified; I25.2 Old myocardial infarction; F41.9 Anxiety disorder, unspecified; F32.9 Major depressive disorder, single episode, unspecified; E66.01 Morbid (severe) obesity due to excess calories; Z68.41 Body mass index [BMI] 40.0-44.9, adult; I48.91 Unspecified atrial fibrillation; Z79.82 Long term (current) use of aspirin; Z79.4 Long term (current) use of insulin; Z20.828 Contact with and (suspected) exposure to other viral communicable diseases

== ENCOUNTER 2020-06-03 13:17 | Inpatient (IN) | payer MEDICARE ==
[~2020-06-03] VITALS: Ht 188 cm; Wt 165.1 kg
[~2020-06-03 13:17] MED LIST changes: +DICLOFENAC SOD100 GM TOP
[2020-06-03 13:27] VITALS: BP 129/62
[2020-06-03 15:18] LABS: ABSOLUTE EOSINOPHILS 0.2 thou/uL (0.0-0.7); ABSOLUTE LYMPHOCYTES 1.1 thou/uL (0.8-5.3); ABSOLUTE MONOCYTES 0.5 thou/uL (0.0-1.2); ABSOLUTE NEUTROPHILS 6.8 thou/uL (1.6-8.1); BASOPHILS 0.4 %; EOSINOPHILS 2.2 %; HEMATOCRIT 41.1 % (42.0-52.0); HEMOGLOBIN 13.7 gm/dL (14.0-18.0); LYMPHOCYTES 12.4 %; MCHC 33.4 g/dL (28.0-37.0); MCV 86.8 fL (80.0-100.0); MONOCYTES 5.3 %; MPV 8.2 fl. (7.2-11.1); NUCLEATED RBCS 0 /100WBC; PLATELET COUNT* 199 thou/uL (150-400); POLYS 79.7 %; RBC 4.73 mil/uL (4.50-6.00); RDW-CV 14.9 % (10.5-14.5); WBC 8.6 thou/uL (4.0-11.0)
[2020-06-03 15:29] LABS: BE -5.8 mmol/L (-2 to +3); PCO2 39.2 mmHg (35.0-45.0); pH 7.321 (7.340-7.450)
[2020-06-03 15:31] LABS: PO2 129.7 mmHg (75.0-100.0)
[2020-06-03 15:37] LABS: CALCIUM 9.1 mg/dL (8.5-10.1); CREATININE 1.2 mg/dL (0.6-1.3); POTASSIUM 4.1 mmol/L (3.5-5.1)
[2020-06-03 15:48] LABS: ALBUMIN 3.7 g/dL (3.4-5.0); TOTAL BILIRUBIN 0.5 mg/dL (<0.1-1.0); TOTAL PROTEIN 7.2 g/dL (6.4-8.2)
[2020-06-03 17:37] LABS: URINE BILIRUBIN NEGATIVE (Negative); URINE BLOOD NEGATIVE (Negative); URINE CLARITY CLEAR; URINE COLOR YELLOW; URINE GLUCOSE-RANDOM 1+ (Negative); URINE KETONES NEGATIVE (Negative); URINE LEUKOCYTES-REFLEX NEGATIVE (Negative); URINE NITRITE-REFLEX NEGATIVE (Negative); URINE PROTEIN NEGATIVE (Negative); URINE UROBILINOGEN 0.2 E.U./dl (0.2-1.0)
[2020-06-03 19:43] VITALS: BP 162/99
[2020-06-03 20:00] VITALS: BP 128/78
[2020-06-03 20:32] LABS: AMP/METHAMP Negative (Negative); BARBITURATES Negative (Negative); BENZODIAZEPINES Negative (Negative); COCAINE Negative (Negative); METHADONE Negative (Negative); OPIATES POSITIVE (Negative); PCP Negative (Negative); THC Negative (Negative)
[2020-06-04 07:50] VITALS: BP 114/71
[2020-06-04] MEDS ORDERED: OXYCODONE HCL10 MG PO (10:12)
[2020-06-04 12:13] VITALS: BP 114/71
[2020-06-04 15:00] VITALS: BP 114/71
--- NOTE | 2020-06-06 08:37 | EKG ---
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: CCD : 1950 Requested By: Jeannette Tang Order Number: [id number] MD: Slava Fontaine Measurements Intervals [place] Rate: 90 P: 2 MI: 156 QRS: -24 QRSD: 122 T: -10 QT: 388 QTc: 475 Interpretive Statements Sinus rhythm Left atrial enlargement Nonspecific intraventricular conduction delay Inferior infarct, old Artifact in lead(s) II,aVR,aVF,V1,V2,V3,V4,V5,V6 Compared to ECG 04/18/2020 14:26:58 Atrial abnormality now present Ventricular premature complex(es) no longer present First degree AV block no longer present Myocardial infarct finding still present Electronically Signed On 06-06-2020 8:37:20 NUCLEAR MEDICINE TECHNICIAN by Slava Fontaine [email or web address] <ELECTRONICALLY SIGNED> By: Sekou Fontaine MD, [facility] 06/06/20 0837 1550 1550 Sekou Fontaine MD, [facility] /EPI
== END 2020-06-04 14:00 | disposition home or self-care (01) | DRG 191 ==
LOC: M.ERS 13:17 → M.TBA-ER 19:09 → M.3W 20:00
PROVIDERS: Internal Medicine; Physician Assistant; ADMIT Internal Medicine; ATTEND Internal Medicine
DX: J44.1 Chronic obstructive pulmonary disease with (acute) exacerbation (principal); I50.42 Chronic combined systolic (congestive) and diastolic (congestive) heart failure; Z68.42 Body mass index [BMI] 45.0-49.9, adult; S20.211A Contusion of right front wall of thorax, initial encounter; M19.90 Unspecified osteoarthritis, unspecified site; I25.10 Atherosclerotic heart disease of native coronary artery without angina pectoris; F32.9 Major depressive disorder, single episode, unspecified; F41.1 Generalized anxiety disorder; E11.65 Type 2 diabetes mellitus with hyperglycemia; G47.30 Sleep apnea, unspecified; E66.01 Morbid (severe) obesity due to excess calories; W19.XXXA Unspecified fall, initial encounter; Z96.652 Presence of left artificial knee joint; Z20.828 Contact with and (suspected) exposure to other viral communicable diseases; I25.2 Old myocardial infarction; Z79.82 Long term (current) use of aspirin; Z79.4 Long term (current) use of insulin; Z79.899 Other long term (current) drug therapy; Z88.5 Allergy status to narcotic agent; Y93.89 Activity, other specified; Y92.89 Other specified places as the place of occurrence of the external cause; Y99.8 Other external cause status

== ENCOUNTER 2020-06-07 08:28 | Inpatient (IN) | payer MEDICARE ==
[~2020-06-07] VITALS: Ht 188 cm; Wt 168.7 kg
[~2020-06-07 08:28] MED LIST changes: +OXYCODONE HCL10 MG PO
[2020-06-07 08:41] VITALS: BP 134/84
[2020-06-07 09:50] LABS: ABSOLUTE EOSINOPHILS 0.2 thou/uL (0.0-0.7); ABSOLUTE LYMPHOCYTES 1.3 thou/uL (0.8-5.3); ABSOLUTE MONOCYTES 0.7 thou/uL (0.0-1.2); ABSOLUTE NEUTROPHILS 7.7 thou/uL (1.6-8.1); BASOPHILS 0.3 %; EOSINOPHILS 1.9 %; HEMATOCRIT 39.3 % (42.0-52.0); LYMPHOCYTES 12.9 %; MCH 28.3 pg (26.0-34.0); MCHC 33.2 g/dL (28.0-37.0); MCV 85.4 fL (80.0-100.0); MONOCYTES 7.1 %; MPV 8.7 fl. (7.2-11.1); NUCLEATED RBCS 0 /100WBC; PLATELET COUNT* 217 thou/uL (150-400); POLYS 77.8 %; RDW-CV 14.8 % (10.5-14.5); WBC 9.8 thou/uL (4.0-11.0)
[2020-06-07 09:52] LABS: CALCIUM 8.7 mg/dL (8.5-10.1); POTASSIUM 3.7 mmol/L (3.5-5.1)
[2020-06-07 09:57] LABS: ALBUMIN 3.2 g/dL (3.4-5.0); TOTAL BILIRUBIN 0.8 mg/dL (<0.1-1.0); TOTAL PROTEIN 6.5 g/dL (6.4-8.2)
[2020-06-07 10:56] VITALS: BP 115/73
[2020-06-07 12:00] VITALS: BP 112/73
--- NOTE | 2020-06-07 15:18 | 2DMMODE ---
[place] [address] 2 D/M-MODE ECHOCARDIOGRAM Name: CINTHYA MILES Hallie Room: [address] IN .R.#: [id number] Admission: 06/07/20 Attend Phys: Lilian Kevin, Discharge: Date of : 48 Date of Service: 06/07/20 1518 Report #: [id number] THIS REPORT FOR: cc: LINDSEY JETT MD, CHADWICK MD Holkins,Gregory Spaulding MD [facility] ~ APPROVED REPORT Study performed: 06/07/2020 14:05:57 EXAM: Comprehensive 2D, Doppler, and color-flow Echocardiogram Patient Location: In-Patient Room #: [facility] Status: routine BSA: 2.79 HR: 87 bpm BP: 112/73 mmHg Rhythm: NSR Other Information Study Quality: Fair Technically limited study due to body habitus, poor endocardial definition. Indications CAD Echo Enhancing Agent Indication: Endocardial border delineation Agent(s) / Amount(s) Used: Optison 3 cc 2D Dimensions IVSd: 12.27 (7-11mm) LVOT Diam: 24.78 (18-24mm) LVDd: 65.17 mm PWd: 14.27 (7-11mm) Ascending Ao: 35.52 (22-36mm) LVDs: 45.17 (25-40mm) Aortic Root: 37.21 mm Volumes Left Atrial Volume (Systole) LA ESV Index: 24.50 mL/m2 Aortic Valve AoV Peak Nigel.: 1.52 m/[place] [address] 2 D/M-MODE ECHOCARDIOGRAM Name: CINTHYA MILES Room: [address] IN [facility].#: [id number] Admission: 06/07/20 Attend Phys: Lilian Kevin, Discharge: Date of : 48 Date of Service: 06/07/20 1518 Report #: [id number] AO Peak Gr.: 9.26 mmHg LVOT Max P.36 mmHg AO Mean Gr.: 5.13 mmHg LVOT Mean P.56 mmHg LVOT Max V: 1.16 m/s AO V2 VTI: 25.08 cm LVOT Mean V: 0.73 m/s SRIKANTH (VTI): 3.62 cm2 LVOT V1 VTI: 18.84 cm Mitral Valve E/A Ratio: 0.74 MV Decel. Time: 140.89 ms MV E Max Nigel.: 0.62 m/s MV PHT: 40.86 ms MVA (PHT): 5.38 cm2 Pulmonary Valve PV Peak Nigel.: 1.05 m/s PV Peak Gr.: 4.42 mmHg Left Ventricle The left ventricle is normal size. There is normal LV segmental wall motion. Borderline concentric left ventricular hypertrophy. Left ventricular systolic function is normal. The left ventricular ejection fraction is within the normal range. LVEF is 55%. Grade I - abnormal relaxation pattern. Right Ventricle The right ventricle is normal size. The right ventricular systolic function is normal. Atria The left atrium size is normal. The right atrium size is normal. Aortic Valve The aortic valve is normal in structure. No aortic regurgitation is present. There is no aortic valvular stenosis. Mitral Valve The mitral valve is normal in structure. There is no mitral valve regurgitation noted. No evidence of mitral valve stenosis. Tricuspid Valve The tricuspid valve is normal in structure. Unable to assess PA pressure. Trace tricuspid regurgitation. Pulmonic Valve The pulmonary valve is normal in structure. There is no pulmonic [place] [address] 2 D/M-MODE ECHOCARDIOGRAM Name: CINTHYA MILES Room: [address] IN [facility]#: [id number] Admission: 06/07/20 Attend Phys: Lilian Kevin, Discharge: Date of : 48 Date of Service: 06/07/20 1518 Report #: [id number] Great Vessels The aortic root is normal in size. IVC is normal in size and collapses >50% with inspiration. Pericardium There is no pericardial effusion. <Conclusion> The left ventricle is normal size. Borderline concentric left ventricular hypertrophy. Left ventricular systolic function is normal. The left ventricular ejection fraction is within the normal range. Grade I - abnormal relaxation pattern. The right ventricle is normal size. The left atrium size is normal. The aortic valve is normal in structure. The mitral valve is normal in structure. The tricuspid valve is normal in structure. IVC is normal in size and collapses >50% with inspiration. There is no pericardial effusion. There is normal LV segmental wall motion. LVEF is 55%. <ELECTRONICALLY SIGNED> By: Gregory Allen MD, FACC 06/07/20 1518 1518 1518 Gregory Allen MD, FACC /INF
--- NOTE | 2020-06-07 15:37 | EKG ---
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 Presser: DALILA : 1950 Requested By: Federico Arredondo Order Number: [id number] MD: Gregory Allen Measurements Intervals [place] Rate: 93 P: 48 SD: 208 QRS: -9 QRSD: 107 T: 0 QT: 382 QTc: 476 Interpretive Statements Sinus rhythm Atrial premature complex Borderline prolonged SD interval Inferior infarct, old Compared to ECG 06/03/2020 15:50:56 Atrial premature complex(es) now present Myocardial infarct finding still present Electronically Signed On 06-07-2020 15:36:54 NODE JS DEVELOPER by Gregory Allen [email or web address] <ELECTRONICALLY SIGNED> By: Gregory Allen MD, FACC 06/07/20 1536 4 4 Gregory Allen MD, FACC /EPI
[2020-06-07 16:00] VITALS: BP 120/65
[2020-06-07 20:00] VITALS: BP 129/81
[2020-06-08] VITALS: BP 93/65
[2020-06-08 04:00] VITALS: BP 121/74
[2020-06-08 05:43] LABS: HEMATOCRIT 36.7 % (42.0-52.0); HEMOGLOBIN 12.2 gm/dL (14.0-18.0); MCH 28.8 pg (26.0-34.0); MCHC 33.2 g/dL (28.0-37.0); MCV 86.8 fL (80.0-100.0); MPV 8.5 fl. (7.2-11.1); RBC 4.23 mil/uL (4.50-6.00); WBC 8.7 thou/uL (4.0-11.0)
[2020-06-08 06:00] LABS: CREATININE 1.3 mg/dL (0.6-1.3); MAGNESIUM 2.5 mg/dL (1.8-2.4)
[2020-06-08 06:09] LABS: POTASSIUM 4.9 mmol/L (3.5-5.1)
[2020-06-08 08:00] VITALS: BP 108/54
[2020-06-08 11:00] VITALS: BP 121/74
--- NOTE | 2020-06-08 11:13 | CON ---
[address] [address] CONSULTATION Name: CINTHYA MILES Hallie Room: [address] IN .R.#: [id number] Admission: 06/07/20 Attend Phys: Lilian Kevin MD Discharge: Date of : 48 Report #: [id number] THIS REPORT FOR: //name// cc: LINDSEY JETT MD, CHADWICK MD ~ DATE OF SERVICE: 06/07/2020 CARDIOLOGY CONSULTATION HISTORY OF PRESENT ILLNESS: The patient is a 70-year-old male with a history of coronary artery disease, status post prior coronary interventions, most recently in 11/2018. On 06/03/2020, he tripped over a curb and fell on his side. Since then, he has experienced a discomfort in the right chest, on the right side of the abdomen. He denies any of the central chest pain that is characterized by his prior angina. The patient does have a number of risk factors for coronary artery disease including hypercholesterolemia, diabetes and hypertension. MEDICATIONS: Include aspirin, atorvastatin, carvedilol, dronedarone, insulin, isosorbide, lisinopril, loratadine, metformin, sublingual nitroglycerin, Paxil, prasugrel and ____. PAST MEDICAL HISTORY: Remarkable for mixed hyperlipidemia, diabetes, weight excess, cardiomyopathy and paroxysmal atrial fibrillation. SOCIAL HISTORY: The patient is a nonsmoker. REVIEW OF SYSTEMS: Remarkable for the following: GENERAL: There is chronic weight excess. ENDOCRINE: He has type 2 diabetes. MUSCULOSKELETAL: He notes chronic arthritic complaints afflicting the joints. PHYSICAL EXAMINATION: GENERAL: Demonstrates markedly overweight male with some difficulty moving and respiring with pain in the right side of the chest. VITAL SIGNS: Blood pressure of 130/70, pulse rate is 74, respirations are 18 per minute with some splinting. NECK: Jugular venous pressure is normal. CHEST: Clear. CARDIAC: Reveals normal first and second heart sounds without murmurs or gallops. ABDOMEN: Obese. EXTREMITIES: Reveal 2+ lower extremity edema without clubbing [place] [address] CONSULTATION Name: CINTHYA MILES Room: [address] IN [facility]#: [id number] Admission: 06/07/20 Attend Phys: Lilian Kevin MD Discharge: Date of : 48 Report #: [id number] IMPRESSION: 1. Right chest wall pain related to a fall on 06/03/2020. 2. Coronary artery disease, status post remote percutaneous coronary intervention. 3. Hyperlipidemia. 4. Type 2 diabetes. 5. Cardiomyopathy. 6. Paroxysmal atrial fibrillation. 7. Exogenous obesity. RECOMMENDATIONS: 1. Symptomatic treatment for the chest wall and right abdominal discomfort related to the fall. 2. The characteristics of the discomfort did not suggest ischemic etiology and I would not recommend catheterization or further invasive evaluation at this time. 3. Would consider an echocardiogram regarding global and segmental LV function in this clinical context. <ELECTRONICALLY SIGNED> By: Gregory Allen MD, FACC 06/08/20 1113 1137 [id number] Allen MD, FACC /nt
[2020-06-08 16:00] VITALS: BP 117/56
[2020-06-08 20:00] VITALS: BP 121/67
[2020-06-09] VITALS: BP 110/58
[2020-06-09 04:00] VITALS: BP 101/55
[2020-06-09 05:20] LABS: BE -3.7 mmol/L (-2 to +3); PCO2 35.4 mmHg (35.0-45.0); PO2 82.9 mmHg (75.0-100.0); pH 7.386 (7.340-7.450)
[2020-06-09 08:38] VITALS: BP 140/81
[2020-06-09 20:00] VITALS: BP 128/101
[2020-06-10] VITALS: BP 100/51
[2020-06-10 04:10] VITALS: BP 117/73
[2020-06-10 08:00] VITALS: BP 135/70
[2020-06-10] MEDS ORDERED: PREDNISONE 10 M10 MG PO (08:38)
[2020-06-10] MEDS ORDERED: OXYCODONE HCL 55 MG PO (08:38)
[2020-06-10] MEDS ORDERED: AZITHROMYCIN 2250 MG PO (08:38)
[2020-06-10] MEDS ORDERED: DICLOFENAC SOD100 GM TOP (08:38)
[2020-06-10] MEDS ORDERED: CEFDINIR300 MG PO (08:38)
[2020-06-10 10:51] VITALS: BP 135/70
--- NOTE | 2020-06-12 12:22 | EKG ---
[place] [address] ELECTROCARDIOGRAM REPORT Name: CINTHYA MILES Room: [address] IN M.R.#: [id number] Admission: 06/07/20 Attend Phys: Lilian Kevin, Discharge: 06/10/20 Date of : 48 Date of Service: 06/07/20 2326 Report #: [id number] THIS REPORT FOR: //name// [facility] Test Date: 2020-06-07 Test Time: 23:26:56 Pat Name: CINTHYA MILES Department: Room: [address] Gender: M Test Carrier: CARMEN : 1950 Requested By: Gregory Allen Order Number: [id number] Todd MD: Eliceo Burkett Measurements Intervals [place] Rate: 109 P: 126 IN: 228 QRS: -13 QRSD: 108 T: -28 QT: 370 QTc: 499 Interpretive Statements atrial fibrillation Inferoposterior infarct, old Compared to ECG 06/07/2020 09:15:59 Sinus rhythm no longer present Myocardial infarct finding still present Electronically Signed On 06-12-2020 12:21:57 AUTO RENTAL SUPERVISOR by Eliceo Burkett [email or web address] <ELECTRONICALLY SIGNED> By: Eliceo Burkett MD, [facility] 06/12/20 1221 2326 2326 Eliceo Burkett MD, [facility] /EPI
== END 2020-06-10 12:40 | disposition home or self-care (01) | DRG 177 ==
LOC: M.ERS 08:28 → M.TBA-ER 09:54 → M.2W 09:54
PROVIDERS: Emergency Medicine Emergency Medical Services; Internal Medicine; ADMIT Internal Medicine; ATTEND Internal Medicine
DX: J15.6 Pneumonia due to other Gram-negative bacteria (principal); I21.4 Non-ST elevation (NSTEMI) myocardial infarction; I50.42 Chronic combined systolic (congestive) and diastolic (congestive) heart failure; I42.9 Cardiomyopathy, unspecified; E44.1 Mild protein-calorie malnutrition; J44.1 Chronic obstructive pulmonary disease with (acute) exacerbation; J44.0 Chronic obstructive pulmonary disease with (acute) lower respiratory infection; Z68.42 Body mass index [BMI] 45.0-49.9, adult; Z20.828 Contact with and (suspected) exposure to other viral communicable diseases; I25.10 Atherosclerotic heart disease of native coronary artery without angina pectoris; E66.01 Morbid (severe) obesity due to excess calories; F32.9 Major depressive disorder, single episode, unspecified; E11.9 Type 2 diabetes mellitus without complications; F41.1 Generalized anxiety disorder; M19.90 Unspecified osteoarthritis, unspecified site; E78.5 Hyperlipidemia, unspecified; I48.0 Paroxysmal atrial fibrillation; Z96.652 Presence of left artificial knee joint; G47.33 Obstructive sleep apnea (adult) (pediatric); Z79.82 Long term (current) use of aspirin; Z79.899 Other long term (current) drug therapy; Z95.5 Presence of coronary angioplasty implant and graft; I25.2 Old myocardial infarction; Z88.6 Allergy status to analgesic agent; Z87.891 Personal history of nicotine dependence

== ENCOUNTER 2020-07-01 21:28 | Inpatient (IN) | payer MEDICARE ==
[~2020-07-01] VITALS: Ht 188 cm; Wt 164.2 kg
[~2020-07-01 21:28] MED LIST changes: +OXYCODONE HCL 55 MG PO
[2020-07-01 21:29] VITALS: BP 154/90
[2020-07-01 22:25] LABS: ABSOLUTE EOSINOPHILS 0.3 thou/uL (0.0-0.7); ABSOLUTE LYMPHOCYTES 1.4 thou/uL (0.8-5.3); ABSOLUTE MONOCYTES 0.4 thou/uL (0.0-1.2); ABSOLUTE NEUTROPHILS 5.5 thou/uL (1.6-8.1); BASOPHILS 0.6 %; EOSINOPHILS 3.5 %; HEMOGLOBIN 12.4 gm/dL (14.0-18.0); LYMPHOCYTES 17.9 %; MCH 28.3 pg (26.0-34.0); MCHC 32.8 g/dL (28.0-37.0); MCV 86.3 fL (80.0-100.0); MONOCYTES 5.8 %; MPV 8.7 fl. (7.2-11.1); NUCLEATED RBCS 0 /100WBC; PLATELET COUNT* 214 thou/uL (150-400); POLYS 72.2 %; RDW-CV 15.1 % (10.5-14.5); WBC 7.6 thou/uL (4.0-11.0)
[2020-07-01 22:27] LABS: CALCIUM 8.5 mg/dL (8.5-10.1); CREATININE 1.2 mg/dL (0.6-1.3); POTASSIUM 4.3 mmol/L (3.5-5.1)
[2020-07-01 22:31] LABS: PROTIME 10.3 Seconds (9.20-11.50)
[2020-07-01 22:41] LABS: ALBUMIN 3.1 g/dL (3.4-5.0); TOTAL BILIRUBIN 0.4 mg/dL (<0.1-1.0); TOTAL PROTEIN 6.3 g/dL (6.4-8.2)
--- NOTE | 2020-07-01 23:28 | NUR ---
CODE STEMI CALLED BY DR. MENESES. SEE FLOWSHEET FOR DETAILS.
[2020-07-02] VITALS (16 sets, daily range): BP systolic 105–144; BP diastolic 62–96
--- NOTE | 2020-07-02 05:01 | NUR ---
RECEIVED REPORT FROM BRANCH SERVICES MANAGER NURSE. PT TRANSFERRED TO 004. VSS. ADMISSION HISTORY & PHYSICAL ASSESSMENT COMPLETED AND CHARTED. PT TRACING SR ON TELE. POST CATH SITE TO RIGHT GROIN-WITH MINIMAL BLEEDING. PRESSURE APPLIED. BRUISING NOTED. NO TENDERNESS. PT COMPLAINED OF BACK & RIB PAIN-MED GIVEN PER MAR. CALL LIGHT WITHIN REACH.
--- NOTE | 2020-07-02 10:21 | EKG ---
[place] [address] ELECTROCARDIOGRAM REPORT Name: CINTHYA MILES Hallie Room: [address] ADM IN .R.#: [id number] Admission: 07/01/20 Attend Phys: Jim Obregon Discharge: Date of : 48 Date of Service: 07/01/202128 Report #: [id number] THIS REPORT FOR: //name// [facility] ED Test Date: 2020-07-01 Test Time: 21:29:19 Pat Name: CINTHYA MILES Department: Room: [facility] Gender: M Record Producer: DESMOND : 1950 Requested By: Silvia Ayoub Order Number: [id number] MD: Eliceo Burkett Measurements Intervals [place] Rate: 88 P: LA: QRS: 68 QRSD: 116 T: 65 QT: 374 QTc: 453 Interpretive Statements sinus rhythm with first degree AV block Inferior infarct, acute (RCA) Probable RV involvement, suggest recording right precordial leads Electronically Signed On 07-02-2020 10:21:18 HEALTH AND SAFETY COORDINATOR by Eliceo Burkett [email or web address] <ELECTRONICALLY SIGNED> By: Eliceo Burkett MD, FACC 07/02/20 1021 28 28 Eliceo Burkett MD, [facility] /EPI
--- NOTE | 2020-07-02 10:30 | CARD ---
[address] [address] CARDIAC CATH REPORT Name: CINTHYA MILES Room: [address] ADM IN [facility]#: [id number] Admission: 07/01/20 Attend Phys: Yair [place] Discharge: Date of : 48 Report #: [id number] THIS REPORT FOR: cc: LINDSEY JETT MD, CHADWICK MD ~ Eliceo Burkett MD [facility] APPROVED REPORT Study performed: 07/01/2020 21:55:11 Patient Details Patient Status: ED Room #: The patient is a 70 year-old male Event Personnel Eliceo Burkett Ceo, Darshana Norris RN Master Ship, Danielle Baumann RN Monitor, Zoey Munson RTR Scrub Procedures Performed Art Access - R femoral artery* Left Heart Cath w/or w/o Coronaries [id number] [facility] STEPHANIE Revasc AMI Total/Sub Single RCA C9606 AMIREVSING Hemostasis w/ Angioseal Indication Abnormal ECG, STEMI (>0 to less than or equal to 6 hours), Chest pain Risk Factors Dysplipidemia Obesity, Coronary Artery DiseaseHypertension, Diabetes Previous Procedures/Diagnoses Previous PCI Admission/Lab Medications/Medications given during procedure Aspirin, Glycoprotein IllbIlla Inhibitors, Heparin Unfract. Procedure Narrative The patient was brought emergently to the Cardiac Catheterization Laboratory and was prepped and draped in a sterile manner. The right femoral was infiltrated with 2% Lidocaine subcutaneous anesthesia. A [place] 6 FR sheath was inserted into the right femoral artery. Coronary angiography was performed using coronary diagnostic catheters. The right coronary system [place] [address] CARDIAC CATH REPORT Name: CINTHYA MILES Room: [address] IN [facility]#: [id number] Admission: 07/01/20 Attend Phys: Yair [place] Discharge: Date of : 48 Report #: [id number] a Diagnostic JR4 catheter. The left coronary system was accessed and visualized with a Diagnostic JL4 catheter. The left ventricle was accessed and visualized with a Diagnostic PIGTAIL catheter. Left ventricular/Aortic Valve gradient assessed via catheter pullback. Left ventriculogram was performed in CONN projection. Closure device was deployed with a 6 Fr Angioseal. The patient tolerated the procedure well and there were no complications associated with the procedure. There was no hematoma. Intraoperative Conscious Sedation Sedation start time: 22:32 Case end Time: 23:20 Fentanyl 75 mcg Fluoro Time: 5.1 minutes Dose: DAP 152825 cGycm2 2003 mGy Contrast Type and Amount: Visipaque 125 ml Coronary Angiography The patient's coronary anatomy is right dominant. Diagnostic Cath Left Main 0% stenosis LAD Stent noted in mid LAD without restenosis Circumflex stent noted in proximal and mid circumflex without restenosis Right Coronary stent noted in proximal, mid, and distal rca and appeared to be acutely occluded distal with thrombus Left Ventriculography The left ventricular ejection fraction is estimated to be 25-30%. Left ventricular wall motion abnormalities are present. There is no mitral insufficiency. inferior wall akinesis noted Hemodynamics The aortic pressure is 149/87 mmHg with a mean of 115 mmHg. The left ventricular pressure is 106/10 mmHg with a mean of mmHg. The left ventricular end diastolic pressure is 20 mmHg. There was no gradient across the aortic valve upon pullback. Pullback from the left ventricle to the aorta revealed no gradient across the aortic valve. PCI Technique Lesion Anticoagulation was achieved with Heparin. bolus of iv aggrastat given Percutaneous coronary [place] [address] CARDIAC CATH REPORT Name: CINTHYA MILES Room: [address]#: [id number] Admission: 07/01/20 Attend Phys: Yair Montana Discharge: Date of : 48 Report #: [id number] right coronary artery. The lesion stenosis prior to intervention was 100% with KEN 0 flow. A 6FR JCR 4 100CM Guide Catheter was used to engage the rca ostium. A IG: BMW 190cm Interventional Guidewire was used to cross the lesion. BALLOON DILATION A Balloon catheter Trek RX 2.5 X 8 was inserted and inflated up to 16.00atm for 12seconds. Repeat angiography revealed the following post-dilatation results: 40% stenosis. Additional Inflation: 13.00atm for 15seconds. Additional Inflation: 13.00atm for 13seconds. STENT DEPLOYMENT A drug-eluting stent [place] RX Stent 3.0X22mm was inserted and inflated up to 13.00atm for 13seconds. Repeat angiography revealed the following post-stent deployment results: 0% stenosis. Additional Inflation: 13.00atm for 15seconds. Additional Inflation: 16.00atm for 12seconds. Final angiography reveals 0 % stenosis with KEN 3 flow. Conclusion 1. no restenosis noted of stents in the mid lad and circumflex artery. 2. acute occlusion of stents in the distal rca 3. successful placement of a new drug eluting stent in the distal rca 4. LVEF 25-30% Recommendations Cardiac Rehabilitation Referral Aggressive Medical Therapy Medications Administered Prasugrel <ELECTRONICALLY SIGNED> By: Eliceo Burkett MD, FACC 07/02/20 1029 1029 1029Daviyair Burkett MD, FACC /INF
--- NOTE | 2020-07-02 18:40 | NUR ---
patient resting in bed. up standby assist to bathroom. trace LE edema. room air. Post cath right groin access with angioseal. vss. patinet in no apparent signs of distress at this time.
--- NOTE | 2020-07-03 04:36 | NUR ---
PATIENT SITTING IN RECLINER AT BEGINNING OF SHIFT AND MOVES FROM BED TO RECLINER THROUGHOUT THE NIGHT. PT UP TO BATHROOM WITH SLOW STEADY GAIT. PT REQUESTED PAIN MEDICATION X2. PT SR ON SUPERVISOR ELECTRONICS TESTING. PT WITH SALINE LOCK IN RT AC. PT WITH 2100 BLOOD SUGAR OF 234; LISPRO 4 UNITS AND LANTUS [address] GIV[address] ORDER. PT WITH SMALL AMOUNT OF EDEMA IN LOWER EXTREMITIES. PT WEARS O2 @ 3 LITERS AT HS. FREQUENTLY USED ITEMS AND CALL LIGHT WITHIN REACH. SIDERAILS UPX2. WILL CONTINUE TO MONITOR.
[2020-07-03 04:54] LABS: CALCIUM 8.5 mg/dL (8.5-10.1); POTASSIUM 4.2 mmol/L (3.5-5.1)
[2020-07-03 05:17] VITALS: BP 101/62
[2020-07-03 07:45] VITALS: BP 124/72
[2020-07-03 08:56] LABS: GLYCOHEMOGLOBIN (HGB A1C) 9.7 % (4.8-5.6)
--- NOTE | 2020-07-03 10:19 | NUR ---
CM SPOKE TO THE PT TO COMPLETE CM ASSESSMENT. PT A&O, INDEPENDENT WITH ADL'S, AND DRIVES. PT INFORMS THAT HIS DTR'S ARE SUPPORTIVE AND ABLE TO ASSIST IF NEEDED. PT USES CANE FOR MOBILITY. PT USES HOME O2 @ 3L PROVIDED BY [facility], AND CPAP AT [facility]. PT HAS HX OF HH WITH [facility]. PT HAS 0 HX OF SNF. NO D/C PLANNING NEEDS ANTICIPATED. CM WILL REMAIN AVAILABLE TO ASSIST AND FOLLOW NEEDED.
--- NOTE | 2020-07-03 10:32 | EKG ---
[place] [address] ELECTROCARDIOGRAM REPORT Name: CINTHYA MILES Room: [address] ADM IN M.R.#: [id number] Admission: 07/01/20 Attend Phys: Jim Obregon Discharge: Date of : 48 Date of Service: 07/03/20 0929 Report #: [id number] THIS REPORT FOR: //name// [facility] Test Date: 2020-07-03 Test Time: 09:29:38 Pat Name: CINTHYA MILES Department: Room: [facility] Gender: M Manager Corporate Communications: BRII : 1950 Requested By: Eliceo Burkett Order Number: [id number] Reading MD: Eliceo Burkett Measurements Intervals [place] Rate: 78 P: 42 UT: 231 QRS: -34 QRSD: 111 T: -12 QT: 427 QTc: 487 Interpretive Statements Sinus rhythm Ventricular premature complex Prolonged UT interval Inferior infarct, age indeterminate Compared to ECG 07/01/2020 23:56:05 Ventricular premature complex(es) now present Myocardial infarct finding still present Electronically Signed On 07-03-2020 10:32:11 ARMAMENT AIRCRAFT MECHANIC by Eliceo Burkett [email or web address] <ELECTRONICALLY SIGNED> By: Eliceo Burkett MD, [facility] 07/03/20 1032 8 8 Eliceo Burkett MD, [facility] /EPI
[2020-07-03 12:14] VITALS: BP 100/54
[2020-07-03] MEDS ORDERED: CARVEDILOL12.5 MG PO (13:00)
--- NOTE | 2020-07-03 14:08 | EKG ---
[place] [address] ELECTROCARDIOGRAM REPORT Name: CINTHYA MILES Room: [address] ADM IN M.R.#: [id number] Admission: 07/01/20 Attend Phys: Jim Obregon Discharge: Date of : 48 Date of Service: 07/01/20 2356 Report #: [id number] THIS REPORT FOR: //name// [facility] Test Date: 2020-07-01 Test Time: 23:56:05 Pat Name: CINTHYA MILES Department: Room: [facility] Gender: M Library Clerical Assistant: ALIVIA : 1950 Requested By: Eliceo Burkett Order Number: [id number] Todd MD: Eliceo Burkett Measurements Intervals [place] Rate: 81 P: -4 NC: 250 QRS: 2 QRSD: 118 T: -12 QT: 413 QTc: 480 Interpretive Statements Sinus rhythm Prolonged NC interval Nonspecific intraventricular conduction delay Inferior infarct, age indeterminate Compared to ECG 07/01/2020 21:29:19 Myocardial infarct finding still present Electronically Signed On 07-03-2020 14:08:49 WATCH CRYSTAL EDGE GRINDER by Eliceo Burkett [email or web address] <ELECTRONICALLY SIGNED> By: Eliceo Burkett MD, FACC 07/03/20 1408 2356 2356 Eliceo Burkett MD, LOCATED WITHIN [facility] /EPI
[2020-07-03 16:33] VITALS: BP 110/68
--- NOTE | 2020-07-03 17:30 | NUR ---
PT REMAINED ALERT AND ORIENTED. PT RESTING IN CHAIR. PT DENIES ANY NEEDS. HOURLY ROUNDING COMPLETED. HEART MONITORED.
[2020-07-03 20:00] VITALS: BP 109/63
[2020-07-04 00:04] VITALS: BP 101/57
[2020-07-04 04:41] VITALS: BP 115/65
[2020-07-04] MEDS ORDERED: SPIRONOLACTONE25 MG PO (10:02)
[2020-07-04] MEDS ORDERED: EFFIENT10 MG PO (10:02)
--- NOTE | 2020-07-04 11:10 | NUR ---
CM INFORMED DURING PRIME ROUNDING OF PLAN OF CARE FOR PT. PLAN FOR PT TO D/C HOME TODAY. PT CONTINUES TO DECLINE HH. RN AND PHYSICIAN INFORMED. NO OTHER D/C PLANNING NEEDS. CM WILL REMAIN AVAILABLE TO ASSIST AND FOLLOW NEEDED.
[2020-07-04 12:00] VITALS: BP 137/77
[2020-07-04 12:52] VITALS: BP 126/64
--- NOTE | 2020-07-05 11:48 | CON ---
[facility] [address] [place] [address] CONSULTATION Name: CINTHYA MILES Room: [address] IN M.R.#: [id number] Admission: 07/01/20 Attend Phys: Yair [place] Discharge: 07/04/20 Date of : 48 Report #: [id number] THIS REPORT FOR: cc: EFRA JETT MD, CHADWICK MD ~ Eliceo Burkett MD [facility] DATE OF SERVICE: 07/01/2020 CARDIOLOGY CONSULTATION PRIMARY CARE PHYSICIAN: Efra Jett MD HISTORY OF PRESENT ILLNESS: The patient is a 70-year-old single white male, who I was asked to see at [facility] after he complained of chest pain. The patient has an extensive and complicated past medical history. He has had multiple stents in the past. He states his first stent was about 5 years ago. His last stent was about a year ago. He is followed by my partner, Dr. Rajan. He apparently was just taken off of Effient about a month ago. He is not very active because of his large size. He was at home [facility] when he started having a pressure in his chest, went into his left arm, became diaphoretic and short of breath. After persisted for a couple of hours, he came to the Emergency Room by private vehicle. He was found to be having evidence of an acute inferior ST segment elevation myocardial infarction. I was asked to see him on an emergent basis. He is not very active, but does get short of breath and he exerts himself. He has chronic edema. Denied palpitations, syncope, recent fever, cough or bleeding. PAST MEDICAL HISTORY: He has had knee surgery, hypertension, diabetes, hyperlipidemia. CURRENT MEDICATIONS: Include insulin, lisinopril, carvedilol, Lipitor, aspirin. ALLERGIES: HE HAS A PREVIOUS INTOLERANCE TO CODEINE AND MORPHINE. FAMILY HISTORY: Positive for heart disease. SOCIAL HISTORY: He is , lives in [place]. 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 Quit smoking years ago. Does not drink a significant amount of alcohol. REVIEW OF SYSTEMS: No history of stroke. He does have sleep apnea, uses CPAP. No history of asthma, liver disease or kidney disease. He had a skin cancer removed in the past. No chronic skin condition[place] [address] CONSULTATION Name: CINTHYA MILES Room: [address]#: [id number] Admission: 07/01/20 Attend Phys: Yair Montana Discharge: 07/04/20 Date of : 48 Report #: [id number] PHYSICAL EXAMINATION: GENERAL: Revealed a large, elderly male, who appeared in moderate distress. VITAL SIGNS: His blood pressure is 140/70, pulse is 80. HEENT: He was anicteric. Conjunctivae pink. Mucous membranes moist. NECK: Neck veins difficult to assess due to obesity. CHEST: Clear to auscultation. CARDIOVASCULAR: Regular rate and rhythm. No murmur. ABDOMEN: Obese. EXTREMITIES: Had no pitting edema. SKIN: Cool and dry. NEUROLOGIC: Nonfocal. RADIOLOGICAL DATA: ECG shows a sinus rhythm, ST segment elevation of 2 mm in leads II, III and aVF. His workup in the Emergency Room, he had a chest x-ray that showed normal heart size, clear lung piedra. Carotid Doppler study last month showed minimal plaque. LABORATORY DATA: His lab work in the Emergency Room: His sodium 141, potassium 4.3, BUN 16, creatinine 1.2; liver function studies were normal; troponin 0.06; BNP 538. In March, his cholesterol was 120, triglycerides 127, HDL 48, LDL 47. TSH in July was 1.0. In March, his hemoglobin A1c was 7.9. White blood cell count 7.6, hemoglobin 12.4, hematocrit 38. IMPRESSION AND RECOMMENDATIONS: 1. Acute inferior wall ST segment elevation myocardial infarction. Recommend urgent cardiac catheterization. 2. Previous stents. The patient on aspirin a day. 3. Hypertension. The patient is on an NICKY inhibitor and a beta nia. 4. Diabetes. 5. Hyperlipidemia. The patient is on a statin drug. 6. Sleep apnea. The patient uses CPAP. Critical care time was from 10:20 till 11:45 p.m. <ELECTRONICALLY SIGNED> By: Eliceo Burkett MD, FACC 07/05/20 1148 2340 0029Dasherron Burkett MD, FACC /nt
== END 2020-07-04 16:00 | disposition home or self-care (01) | DRG 246 ==
LOC: M.CL 21:28 → M.ERS 21:28 → M.TBA-CV 23:07 → M.ICU 23:07 → M.2W 23:07 → M.ICU 23:44 → M.2W 07-02 15:06
PROVIDERS: Emergency Medicine; Internal Medicine Cardiovascular Disease; ADMIT Internal Medicine; ATTEND Internal Medicine
PROC: 027034Z Dilation of Coronary Artery, One Artery with Drug-eluting Intraluminal Device, Percutaneous Approach (ICD-10-PCS; principal; 2020-07-01)
PROC: 4A023N7 Measurement of Cardiac Sampling and Pressure, Left Heart, Percutaneous Approach (ICD-10-PCS; principal; 2020-07-01)
PROC: B215YZZ Fluoroscopy of Left Heart using Other Contrast (ICD-10-PCS; principal; 2020-07-01)
PROC: B211YZZ Fluoroscopy of Multiple Coronary Arteries using Other Contrast (ICD-10-PCS; principal; 2020-07-01)
DX: I21.19 ST elevation (STEMI) myocardial infarction involving other coronary artery of inferior wall (principal); I50.43 Acute on chronic combined systolic (congestive) and diastolic (congestive) heart failure; T82.897A Other specified complication of cardiac prosthetic devices, implants and grafts, initial encounter; Z68.42 Body mass index [BMI] 45.0-49.9, adult; G47.33 Obstructive sleep apnea (adult) (pediatric); I25.10 Atherosclerotic heart disease of native coronary artery without angina pectoris; E66.01 Morbid (severe) obesity due to excess calories; F32.9 Major depressive disorder, single episode, unspecified; F41.1 Generalized anxiety disorder; E11.9 Type 2 diabetes mellitus without complications; I11.0 Hypertensive heart disease with heart failure; M19.90 Unspecified osteoarthritis, unspecified site; E78.5 Hyperlipidemia, unspecified; Y83.8 Other surgical procedures as the cause of abnormal reaction of the patient, or of later complication, without mention of misadventure at the time of the procedure; Z96.652 Presence of left artificial knee joint; Z20.828 Contact with and (suspected) exposure to other viral communicable diseases; I25.2 Old myocardial infarction; Z79.4 Long term (current) use of insulin; Z79.899 Other long term (current) drug therapy; Z88.5 Allergy status to narcotic agent; Y92.89 Other specified places as the place of occurrence of the external cause; Z87.891 Personal history of nicotine dependence; Z72.89 Other problems related to lifestyle

== ENCOUNTER → 2020-07-11 | Outpatient (CLI) | payer MEDICARE ==
[2020-07-11 12:10] LABS: CALCIUM 9.1 mg/dL (8.5-10.1); CREATININE 1.1 mg/dL (0.6-1.3); POTASSIUM 4.3 mmol/L (3.5-5.1)
== END ==
LOC: M.LAB 11:37
PROVIDERS: ATTEND Registered Nurse
DX: I25.5 Ischemic cardiomyopathy (principal)

== ENCOUNTER 2020-11-17 19:32 | Observation (INO) | payer OTHER ==
[~2020-11-17] VITALS: Ht 188 cm; Wt 162.7 kg
--- NOTE | ~2020-11-17 | EMS ---
[address] [address] EMS Patient Care Report Name: CINTHYA MILES [facility] [id number] Admission: 11/17/20 Attend Phys: Discharge: Date of : 48 Report #: [id number] THIS REPORT FOR: //name// Report Transmitted: 11/17/2020 20:17 EMS Care Summary [place]HELLE [place] Incident [id number] @ 11/17/2020 18:34 [place] [address] Patient CINTHYA HERNADEZ Male, 70 Years 1950 [place] [address] Patient History Type 2 diabetes mellitus,Myocardial Infarction ([place]),Presence of coronary angioplasty implant and graft, Patient Allergies , Patient Medications Humalog, Chief Complaint Diabetes related symptoms Disposition Transported No Lights/[place] Dispatch Reason Heart Problems/AICD Transported To [facility] Narrative [facility] WAS DISPATCHED EMERGENT FOR A 70 Y/O MALE WHO IS SHORT OF BREATH AND IS SWEATING. UPON ARRIVAL ON SCENE, THE PT WAS FOUND SITTING IN A CHAIR, LETHARGIC, ORIENTED, PALE, COOL, VERY DIAPHORETIC, AND GCS OF 15 WHEN WOKEN UP. [address] [address] EMS Patient Care Report Name: CINTHYA MILES [facility] [id number] Admission: 11/17/20 Attend Phys: Discharge: Date of : 48 Report #: [id number] THE PT'S FRIEND CALLED 911 THE PT HAD NO BEEN ACTING RIGHT. THE PT INDICATES THAT HE HAS NO COMPLAINTS. IFD INDICATES THAT THEY COULD NOT GET A BGL READING AND HAD NOTHING ELSE ASIDE FORM THE 12 LEAD THAT SHOWED NSR. THE PT WAS ASSISTED TO THE COT AND WAS NOTED TO BE EXTREMELY WEAK. THE PT WAS THEN LOADED INTO THE AMBULANCE. THE PT IS NOTED TO HAVE EXTENSIVE CARDIAC HISTORY AND DIABETES. ONCE IN THE AMBULANCE, A SET OF VITALS, IV, BGL, 12 LEAD WAS DONE (SEE REPORT). THE PT'S BGL WAS NOTED TO BE 46 mG/dL. D10% WAS HUNG AND GOING WITH A 50 MLS BOLUS. THE PT'S BGL WENT UP TO 150 mG/dL AND THE D10% WAS TURNED TO TKO. THE PT BECAME MORE ALERT AND INDICATES TAKING HUMALOG 23 NORMALLY, BUT TODAY HE TOOK 35 HIS BGL WAS 309 mG/dL AT 1530 TODAY. THE PT INDICATES EATING DINNER AN HOUR AGO. THE PT'S BGL NORMALLY RUNS FROM 150 TO 200. THE PT INDICATES HE IS NOT SURE OF THE LAST TIME HE WAS HYPOGLYCEMIC. [facility] WENT [facility] NON-EMERGENT TO [facility]. A RADIO REPORT WAS GIVEN EN ROUTE. THE PT'S SKIN SIGNS IMPROVED BUT THE PT STARTED TO BECOME VERY LETHARGIC AGAIN AND WAS A GCS OF 14. THE PT'S BGL WAS NOTED TO BE 107 mG/dL. THE D10% WAS TURNED BACK TO WIDE OPEN. THE PT'S VITALS WERE CONTINUALLY CHECKED. THE PT'S HEART RATE WAS NOTED TO BE SLIGHTLY BRADYCARDIC WHILE THE PT WAS ASLEEP. THE PT WAS EASILY WOKEN UP. THE PT'S BGL WAS NOW 100 mG/dL. THE PT WAS STARTING TO BECOME MORE AWAKE NOW. THE PT REMAINED STABLE ASIDE FROM HIS BGL DECREASING. THE PT'S VITALS WERE CONTINUALLY MONITORED. UPON ARRIVAL, THE PT'S FINAL BGL WAS FOUND TO BE 87 mG/dL AFTER ALL OF THE 250 MLS OF D10% HAD BEEN GIVEN. THE PT WAS AWAKE AND TALKING BUT NOT FULLY ORIENTED. THE PT WAS UNLOADED AND TAKEN TO THE ER. THE RN SIGNED FOR THE PT. A HAND OFF REPORT WAS GIVEN. THE PT'S BGL WAS 46 mG/dL IN THE ER. [facility] WAS THEN CLEARED AND RETURNED TO SERVICE. Initial Vitals @19:00SpO2: 97, @19:20SpO2: 95, @18:54 @18:57 @19:04 @19:05 @18:53P: 59,R: 16,BP: 123/82, @19:00P: 54,R: 18,BP: 112/73, @19:20P: 60,R: 14,BP: 132/76, @18:53GCS: 14, @19:00GCS: 15, @19:20GCS: 14, @18:54Glucose: 36, @18:59Glucose: 150, @19:29Glucose: 85, @19:08Glucose: 100, @19:04Glucose: 107, @19:19Glucose: 97, [place] [address] EMS Patient Care Report Name: CINTHYA MILES Room: [facility]#: [id number] Admission: 11/17/20 Attend Phys: Discharge: Date of : 48 Report #: [id number] @18:46MENTAL:SKIN:HEENT:LUNG SOUNDS:ABDOMEN:PELVIS//GI:EXTREMITIES:PULSE:NEURO: Impression Diabetic Hypoglycemia Procedures @18:57Dextrose 10% - 250.000 Milliliters (ml) - Intravenous (IV)Response: Improved@18:54 cc () Site: Other Peripheral (Not Listed)Response: UnchangedSucceeded@18:543-Lead ECGResponse: UnchangedSucceeded@18:573-Lead ECGResponse: UnchangedSucceeded@19:0412-Lead ECGResponse: UnchangedSucceeded@19:0512-Lead ECGResponse: UnchangedSucceeded Timeline 17:46,Call Received 18:34,Dispatch Notified 18:34,Psap Call 18:34,Dispatched 18:34,En Route 18:44,On Scene 18:46,At Patient 18:53,BP: 123/82 M,PULSE: 59,RR: 16 R,SPO2: Ox,ETCO2: ,BG: ,PAIN: ,GCS: , 18:53,BP: / M,PULSE: ,RR: R,SPO2: Ox,ETCO2: ,BG: ,PAIN: ,GCS: 14, 18:54, cc Site: Other Peripheral (Not Listed),Response: UnchangedSucceeded, 18:54,3-Lead ECG,Response: UnchangedSucceeded, 18:54,BP: / M,PULSE: ,RR: R,SPO2: Ox,ETCO2: ,BG: ,PAIN: ,GCS: , 18:54,BP: / M,PULSE: ,RR: R,SPO2: Ox,ETCO2: ,B,PAIN: ,GCS: , 18:57,Dextrose 10% - 250.000 Milliliters (ml) - Intravenous (IV),Response: Improved 18:57,3-Lead ECG,Response: UnchangedSucceeded, 18:57,BP: / M,PULSE: ,RR: R,SPO2: Ox,ETCO2: ,BG: ,PAIN: ,GCS: , 18:59,BP: / M,PULSE: ,RR: R,SPO2: Ox,ETCO2: ,B,PAIN: ,GCS: , 19:00,BP: / M,PULSE: ,RR: R,SPO2: 97 Ox,ETCO2: ,BG: ,PAIN: ,GCS: , 19:00,BP: 112/73 M,PULSE: 54,RR: 18 R,SPO2: Ox,ETCO2: ,BG: ,PAIN: ,GCS: , 19:00,BP: / M,PULSE: ,RR: R,SPO2: Ox,ETCO2: ,BG: ,PAIN: ,GCS: 15, 19:04,12-Lead ECG,Response: UnchangedSucceeded, 19:04,BP: / M,PULSE: ,RR: R,SPO2: Ox,ETCO2: ,BG: ,PAIN: ,GCS: , 19:04,BP: / M,PULSE: ,RR: R,SPO2: Ox,ETCO2: ,B,PAIN: ,GCS: , 19:05,12-Lead ECG,Response: UnchangedSucceeded, 19:05,BP: / M,PULSE: ,RR: R,SPO2: Ox,ETCO2: ,BG: ,PAIN: ,GCS: , 19:07,Depart Scene 19:08,BP: / M,PULSE: ,RR: R,SPO2: Ox,ETCO2: ,B,PAIN: ,GCS: , 19:19,BP: / M,PULSE: ,RR: R,SPO2: Ox,ETCO2: ,B,PAIN: ,GCS: , 19:20,BP: / M,PULSE: ,RR: R,SPO2: 95 Ox,ETCO2: ,BG: ,PAIN: ,GCS: , 19:20,BP: 132/76 M,PULSE: 60,RR: 14 R,SPO2: Ox,ETCO2: ,BG: ,PAIN: ,GCS: , 19:20,BP: / M,PULSE: ,RR: R,SPO2: Ox,ETCO2: ,BG: ,PAIN: ,GCS: 14, [address] [place] [address] EMS Patient Care Report Name: CINTHYA MILES Hallie Room: [facility]#: [id number] Admission: 11/17/20 Attend Phys: Discharge: Date of : 48 Report #: [id number] 19:29,BP: / M,PULSE: ,RR: R,SPO2: Ox,ETCO2: ,B,PAIN: ,GCS: , 19:30,At Destination 19:53,Call Closed Disclaimer v1.1 Copyright 2020 [employer] This EMS Care Summary contains data elements from the applicable legal record (which may be displayed differently). It is designed to provide pertinent information for the following purposes: continuity of care, clinical quality, and state data reporting. The complete legal record is available to ED staff and administrators of the receiving hospital in [facility]'s Patient Tracker. All data is provided "as is."
--- NOTE | ~2020-11-17 | EMS ---
[address] [address] EMS Patient Care Report Name: CINTHYA MILES [facility] [id number] Admission: 11/17/20 Attend Phys: Discharge: Date of : 48 Report #: [id number] THIS REPORT FOR: //name// Report Transmitted: 11/17/2020 20:17 EMS Care Summary [place]HELLE [place] Incident [id number] @ 11/17/2020 18:34 [place] [address] Patient CINTHYA HERNADEZ Male, 70 Years 1950 [place] [address] Patient History Type 2 diabetes mellitus,Myocardial Infarction ([place]),Presence of coronary angioplasty implant and graft, Patient Allergies , Patient Medications Humalog, Chief Complaint Diabetes related symptoms Disposition Transported No Lights/[place] Dispatch Reason Heart Problems/AICD Transported To [facility] Narrative [facility] WAS DISPATCHED EMERGENT FOR A 70 Y/O MALE WHO IS SHORT OF BREATH AND IS SWEATING. UPON ARRIVAL ON SCENE, THE PT WAS FOUND SITTING IN A CHAIR, LETHARGIC, ORIENTED, PALE, COOL, VERY DIAPHORETIC, AND GCS OF 15 WHEN WOKEN UP. [address] [address] EMS Patient Care Report Name: CINTHYA MILES [facility] [id number] Admission: 11/17/20 Attend Phys: Discharge: Date of : 48 Report #: [id number] THE PT'S FRIEND CALLED 911 THE PT HAD NO BEEN ACTING RIGHT. THE PT INDICATES THAT HE HAS NO COMPLAINTS. IFD INDICATES THAT THEY COULD NOT GET A BGL READING AND HAD NOTHING ELSE ASIDE FORM THE 12 LEAD THAT SHOWED NSR. THE PT WAS ASSISTED TO THE COT AND WAS NOTED TO BE EXTREMELY WEAK. THE PT WAS THEN LOADED INTO THE AMBULANCE. THE PT IS NOTED TO HAVE EXTENSIVE CARDIAC HISTORY AND DIABETES. ONCE IN THE AMBULANCE, A SET OF VITALS, IV, BGL, 12 LEAD WAS DONE (SEE REPORT). THE PT'S BGL WAS NOTED TO BE 46 mG/dL. D10% WAS HUNG AND GOING WITH A 50 MLS BOLUS. THE PT'S BGL WENT UP TO 150 mG/dL AND THE D10% WAS TURNED TO TKO. THE PT BECAME MORE ALERT AND INDICATES TAKING HUMALOG 23 NORMALLY, BUT TODAY HE TOOK 35 HIS BGL WAS 309 mG/dL AT 1530 TODAY. THE PT INDICATES EATING DINNER AN HOUR AGO. THE PT'S BGL NORMALLY RUNS FROM 150 TO 200. THE PT INDICATES HE IS NOT SURE OF THE LAST TIME HE WAS HYPOGLYCEMIC. [facility] WENT EN ROUTE NON-EMERGENT TO [facility]. A RADIO REPORT WAS GIVEN EN ROUTE. THE PT'S SKIN SIGNS IMPROVED BUT THE PT STARTED TO BECOME VERY LETHARGIC AGAIN AND WAS A GCS OF 14. THE PT'S BGL WAS NOTED TO BE 107 mG/dL. THE D10% WAS TURNED BACK TO WIDE OPEN. THE PT'S VITALS WERE CONTINUALLY CHECKED. THE PT'S HEART RATE WAS NOTED TO BE SLIGHTLY BRADYCARDIC WHILE THE PT WAS ASLEEP. THE PT WAS EASILY WOKEN UP. THE PT'S BGL WAS NOW 100 mG/dL. THE PT WAS STARTING TO BECOME MORE AWAKE NOW. THE PT REMAINED STABLE ASIDE FROM HIS BGL DECREASING. THE PT'S VITALS WERE CONTINUALLY MONITORED. UPON ARRIVAL, THE PT'S FINAL BGL WAS FOUND TO BE 87 mG/dL AFTER ALL OF THE 250 MLS OF D10% HAD BEEN GIVEN. THE PT WAS AWAKE AND TALKING BUT NOT FULLY ORIENTED. THE PT WAS UNLOADED AND TAKEN TO THE ER. THE RN SIGNED FOR THE PT. A HAND OFF REPORT WAS GIVEN. THE PT'S BGL WAS 46 mG/dL IN THE ER. [facility] WAS THEN CLEARED AND RETURNED TO SERVICE. Initial Vitals @19:00SpO2: 97, @19:20SpO2: 95, @18:54 @18:57 @19:04 @19:05 @18:53P: 59,R: 16,BP: 123/82, @19:00P: 54,R: 18,BP: 112/73, @19:20P: 60,R: 14,BP: 132/76, @18:53GCS: 14, @19:00GCS: 15, @19:20GCS: 14, @18:54Glucose: 36, @18:59Glucose: 150, @19:29Glucose: 85, @19:08Glucose: 100, @19:04Glucose: 107, @19:19Glucose: 97, [place] [address] EMS Patient Care Report Name: CINTHYA MILES Room: [facility]#: [id number] Admission: 11/17/20 Attend Phys: Discharge: Date of : 48 Report #: [id number] @18:46MENTAL:SKIN:HEENT:LUNG SOUNDS:ABDOMEN:PELVIS//GI:EXTREMITIES:PULSE:NEURO: Impression Diabetic Hypoglycemia Procedures @18:57Dextrose 10% - 250.000 Milliliters (ml) - Intravenous (IV)Response: Improved@18:54 cc () Site: Other Peripheral (Not Listed)Response: UnchangedSucceeded@18:543-Lead ECGResponse: UnchangedSucceeded@18:573-Lead ECGResponse: UnchangedSucceeded@19:0412-Lead ECGResponse: UnchangedSucceeded@19:0512-Lead ECGResponse: UnchangedSucceeded Timeline 17:46,Call Received 18:34,Dispatch Notified 18:34,Psap Call 18:34,Dispatched 18:34,En Route 18:44,On Scene 18:46,At Patient 18:53,BP: 123/82 M,PULSE: 59,RR: 16 R,SPO2: Ox,ETCO2: ,BG: ,PAIN: ,GCS: , 18:53,BP: / M,PULSE: ,RR: R,SPO2: Ox,ETCO2: ,BG: ,PAIN: ,GCS: 14, 18:54, cc Site: Other Peripheral (Not Listed),Response: UnchangedSucceeded, 18:54,3-Lead ECG,Response: UnchangedSucceeded, 18:54,BP: / M,PULSE: ,RR: R,SPO2: Ox,ETCO2: ,BG: ,PAIN: ,GCS: , 18:54,BP: / M,PULSE: ,RR: R,SPO2: Ox,ETCO2: ,B,PAIN: ,GCS: , 18:57,Dextrose 10% - 250.000 Milliliters (ml) - Intravenous (IV),Response: Improved 18:57,3-Lead ECG,Response: UnchangedSucceeded, 18:57,BP: / M,PULSE: ,RR: R,SPO2: Ox,ETCO2: ,BG: ,PAIN: ,GCS: , 18:59,BP: / M,PULSE: ,RR: R,SPO2: Ox,ETCO2: ,B,PAIN: ,GCS: , 19:00,BP: / M,PULSE: ,RR: R,SPO2: 97 Ox,ETCO2: ,BG: ,PAIN: ,GCS: , 19:00,BP: 112/73 M,PULSE: 54,RR: 18 R,SPO2: Ox,ETCO2: ,BG: ,PAIN: ,GCS: , 19:00,BP: / M,PULSE: ,RR: R,SPO2: Ox,ETCO2: ,BG: ,PAIN: ,GCS: 15, 19:04,12-Lead ECG,Response: UnchangedSucceeded, 19:04,BP: / M,PULSE: ,RR: R,SPO2: Ox,ETCO2: ,BG: ,PAIN: ,GCS: , 19:04,BP: / M,PULSE: ,RR: R,SPO2: Ox,ETCO2: ,B,PAIN: ,GCS: , 19:05,12-Lead ECG,Response: UnchangedSucceeded, 19:05,BP: / M,PULSE: ,RR: R,SPO2: Ox,ETCO2: ,BG: ,PAIN: ,GCS: , 19:07,Depart Scene 19:08,BP: / M,PULSE: ,RR: R,SPO2: Ox,ETCO2: ,B,PAIN: ,GCS: , 19:19,BP: / M,PULSE: ,RR: R,SPO2: Ox,ETCO2: ,B,PAIN: ,GCS: , 19:20,BP: / M,PULSE: ,RR: R,SPO2: 95 Ox,ETCO2: ,BG: ,PAIN: ,GCS: , 19:20,BP: 132/76 M,PULSE: 60,RR: 14 R,SPO2: Ox,ETCO2: ,BG: ,PAIN: ,GCS: , 19:20,BP: / M,PULSE: ,RR: R,SPO2: Ox,ETCO2: ,BG: ,PAIN: ,GCS: 14, [address] [place] [address] EMS Patient Care Report Name: CINTHYA MILES Hallie Room: [facility]#: [id number] Admission: 11/17/20 Attend Phys: Discharge: Date of : 48 Report #: [id number] 19:29,BP: / M,PULSE: ,RR: R,SPO2: Ox,ETCO2: ,B,PAIN: ,GCS: , 19:30,At Destination 19:53,Call Closed Disclaimer v1.1 Copyright 2020 [employer] This EMS Care Summary contains data elements from the applicable legal record (which may be displayed differently). It is designed to provide pertinent information for the following purposes: continuity of care, clinical quality, and state data reporting. The complete legal record is available to ED staff and administrators of the receiving hospital in [facility]'s Patient Tracker. All data is provided "as is."
[2020-11-17 19:42] VITALS: BP 102/53
[2020-11-17 19:53] LABS: ABSOLUTE BASOPHILS 0.1 thou/uL (0.0-0.2); ABSOLUTE EOSINOPHILS 0.3 thou/uL (0.0-0.7); ABSOLUTE LYMPHOCYTES 1.1 thou/uL (0.8-5.3); ABSOLUTE MONOCYTES 0.5 thou/uL (0.0-1.2); ABSOLUTE NEUTROPHILS 7.8 thou/uL (1.6-8.1); BASOPHILS 0.5 %; EOSINOPHILS 2.6 %; HEMATOCRIT 36.9 % (42.0-52.0); HEMOGLOBIN 12.3 gm/dL (14.0-18.0); LYMPHOCYTES 11.4 %; MCH 29.6 pg (26.0-34.0); MCHC 33.2 g/dL (28.0-37.0); MCV 89.1 fL (80.0-100.0); MONOCYTES 5.6 %; MPV 8.2 fl. (7.2-11.1); NUCLEATED RBCS 0 /100WBC; PLATELET COUNT* 212 thou/uL (150-400); POLYS 79.9 %; RBC 4.14 mil/uL (4.50-6.00); RDW-CV 14.4 % (10.5-14.5); WBC 9.7 thou/uL (4.0-11.0)
[2020-11-17 20:02] LABS: CALCIUM 9.1 mg/dL (8.5-10.1); CREATININE 1.2 mg/dL (0.6-1.3); POTASSIUM 3.9 mmol/L (3.5-5.1)
[2020-11-17 20:03] LABS: PROTIME 10.3 Seconds (9.20-11.50)
[2020-11-17 20:06] LABS: ALBUMIN 3.4 g/dL (3.4-5.0); MAGNESIUM 1.6 mg/dL (1.8-2.4); TOTAL BILIRUBIN 0.3 mg/dL (<0.1-1.0); TOTAL PROTEIN 6.6 g/dL (6.4-8.2)
[2020-11-17 23:15] LABS: URINE BILIRUBIN NEGATIVE (Negative); URINE BLOOD NEGATIVE (Negative); URINE CLARITY CLEAR; URINE COLOR YELLOW; URINE GLUCOSE-RANDOM NEGATIVE (Negative); URINE KETONES NEGATIVE (Negative); URINE LEUKOCYTES-REFLEX TRACE (Negative); URINE NITRITE-REFLEX NEGATIVE (Negative); URINE PROTEIN NEGATIVE (Negative); URINE SPECIFIC GRAVITY 1.015 (1.005-1.030); URINE UROBILINOGEN 0.2 E.U./dl (0.2-1.0)
[2020-11-17 23:57] LABS: HYALINE CASTS 0-3 Few /LPF (None Seen); SQUAMOUS 0-3 Few /LPF (0-3)
[2020-11-17 23:58] LABS: URINE RBC None Seen /HPF (0-2); URINE WBC-REFLEX 0-5 Rare /HPF (0-5)
[2020-11-17 23:59] LABS: BACTERIA-REFLEX None Seen /HPF (None Seen); CRYSTALS None Seen /LPF (None Seen)
[2020-11-18 01:00] VITALS: BP 101/73
[2020-11-18 01:31] VITALS: BP 101/56
[2020-11-18] MEDS ORDERED: OXYCONTIN15 MG PO (01:53)
[2020-11-18] MEDS ORDERED: OXYCODONE HCL10 MG PO (02:41)
[2020-11-18 04:53] VITALS: BP 97/46
--- NOTE | 2020-11-18 05:08 | NUR ---
RECEIVED REPORT FROM MICHA CASTANO. PT TRANSFERRED TO 213. PT A&0X4. VSS. 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 ADMISSION HISTORY & PHYSICAL ASSESSMENT COMPLETED AND CHARTED. PT ON RA. PT TRACING SR/1ST DEG ON TELE. PT UPSTANDBY TO RESTROOM. PT COMPLAINED OF NECK, KNEES & LEG PAIN-DR NGUYEN MADE AWARE WITHNEW ORDERS. FALL PRECAUTIONS IN PLACE. CALL LIGHT WITHIN REACH.
[2020-11-18 08:00] VITALS: BP 116/50
--- NOTE | 2020-11-18 10:58 | NUR ---
RECEIVED REPORT AROUND 0715. ASSUMED CARE. VS AND ASSESSMENT CHARTED. IV INTACT. HEART MONITOR ATTACHED AT SR 1ST DEGREE. PT UP ADLIB. REFUSED BED ALARM. PT STABLE ON FEET. MEDS GIVEN PER SEP. POSSIBLE D/C THIS SHIFT. PAIN REPORTED IN KNEES THIS AM. CALL LIGHT WITHIN REACH. WILL CONTINUE TO MONITOR.
[2020-11-18 11:49] VITALS: BP 116/50
[2020-11-18 12:00] VITALS: BP 111/60
--- NOTE | 2020-11-18 15:00 | NUR ---
RECEIVED DISCHARGE ORDERS. IV TAKEN OUT. HEART MONITOR OFF. DISCHARGE PACKET GIVEN TO PT. COMMUNICATED UNDERSTANDING. TAXI VOUCHER SUPPLIED BY HOSPITAL. CALLED TAXI. PT LEFT UNIT VIA WHEEL CHAIR WITH NURSING STAFF AND ALL BELONGINGS AT 1448.
[2020-11-19 05:37] LABS: GLYCOHEMOGLOBIN (HGB A1C) 9.6 % (4.8-5.6)
--- NOTE | 2020-11-19 12:39 | EKG ---
[place] [address] ELECTROCARDIOGRAM REPORT Name: CINTHYA MILES Room: [address]#: [id number] Admission: 11/17/20 Attend Phys: Wali Mendoza, Discharge: 11/18/20 Date of : 48 Date of Service: 11/17/201951 Report #: [id number] THIS REPORT FOR: //name// 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 : 1950 Requested By: Silvia Ayoub Order Number: [id number] MD: Peter Rajan Measurements Intervals [place] Rate: 54 P: WI: QRS: 4 QRSD: 119 T: 48 QT: 501 QTc: 475 Interpretive Statements Sinus rhythm Inferolateral infarct, old Compared to ECG 07/03/2020 09:29:38 Ventricular premature complex(es) no longer present First degree AV block no longer present Myocardial infarct finding still present Electronically Signed On 11-19-2020 12:39:03 CDT by Peter Rajan [email or web address] <ELECTRONICALLY SIGNED> By: Peter Rajan MD, FAC 11/19/20 1239 51 51 Peter Rajan MD, [facility] /EPI
== END 2020-11-18 14:48 | disposition home or self-care (01) ==
LOC: M.ERS 19:32 → M.TBA-ER 23:04 → M.2W 11-18 01:17
PROVIDERS: Emergency Medicine; ADMIT Internal Medicine; ATTEND Internal Medicine
DX: E11.65 Type 2 diabetes mellitus with hyperglycemia (principal); Z20.822 Contact with and (suspected) exposure to COVID-19; E66.01 Morbid (severe) obesity due to excess calories; F41.9 Anxiety disorder, unspecified; F32.9 Major depressive disorder, single episode, unspecified; M19.90 Unspecified osteoarthritis, unspecified site; G89.29 Other chronic pain; J44.9 Chronic obstructive pulmonary disease, unspecified; I25.10 Atherosclerotic heart disease of native coronary artery without angina pectoris; I50.42 Chronic combined systolic (congestive) and diastolic (congestive) heart failure; I11.0 Hypertensive heart disease with heart failure; Z98.890 Other specified postprocedural states; Z87.891 Personal history of nicotine dependence

== ENCOUNTER 2021-02-07 02:56 | Inpatient (IN) | payer OTHER ==
[~2021-02-07] VITALS: Ht 188 cm; Wt 155.1 kg
--- NOTE | ~2021-02-07 | PROC ---
[address] [address] PROCEDURE REPORT Name: CINTHYA MILES Room: [address] ADM IN M.R.#: [id number] Admission: 02/07/21 Attend Phys: Eve Lamas Discharge: Date of : 48 Report #: [id number] THIS REPORT FOR: cc: LINDSEY JETT MD, CHADWICK MD [facility],Medical Records Staff ~ For GI report, please see the Provation report in Perceptive 7 content. By: [id number] Records Staff [facility] /STACEY
[~2021-02-07 02:56] MED LIST changes: +OXYCONTIN15 MG PO
[2021-02-07 03:03] VITALS: BP 86/56
[2021-02-07 03:25] LABS: ABSOLUTE BASOPHILS 0.1 thou/uL (0.0-0.2); ABSOLUTE EOSINOPHILS 0.2 thou/uL (0.0-0.7); ABSOLUTE LYMPHOCYTES 1.6 thou/uL (0.8-5.3); ABSOLUTE MONOCYTES 0.6 thou/uL (0.0-1.2); BASOPHILS 0.9 %; EOSINOPHILS 2.6 %; HEMATOCRIT 34.1 % (42.0-52.0); HEMOGLOBIN 11.6 gm/dL (14.0-18.0); LYMPHOCYTES 16.9 %; MCH 30.2 pg (26.0-34.0); MCHC 33.9 g/dL (28.0-37.0); MCV 88.9 fL (80.0-100.0); MPV 8.7 fl. (7.2-11.1); NUCLEATED RBCS 0 /100WBC; PLATELET COUNT* 198 thou/uL (150-400); POLYS 73.6 %; RBC 3.84 mil/uL (4.50-6.00); RDW-CV 13.3 % (10.5-14.5); WBC 9.5 thou/uL (4.0-11.0)
[2021-02-07 03:33] LABS: CALCIUM 8.7 mg/dL (8.5-10.1); CREATININE 1.5 mg/dL (0.6-1.3)
[2021-02-07 03:34] LABS: PROTIME 10.5 Seconds (9.20-11.50)
[2021-02-07 03:40] LABS: ALBUMIN 3.2 g/dL (3.4-5.0); TOTAL BILIRUBIN 0.3 mg/dL (<0.1-1.0); TOTAL PROTEIN 6.1 g/dL (6.4-8.2)
[2021-02-07 08:30] VITALS: BP 146/100
[2021-02-07 12:30] VITALS: BP 106/70
--- NOTE | 2021-02-07 12:36 | NUR ---
pt indicated he lives home, his granddtr stays in the basement. he is independent with adls, his grnddtr does the cooking. pt has 3l of o2 at home via [employer]. pt has can. pt has no stairs to navigate to enter the home, the home is one-level inside. pt drives and completes his own errands. pt is not current with hh, had it in the past and does not want it again. poc is for pt to have scope for gi bleed. cm to cont to follow.
[2021-02-07 12:40] VITALS: BP 106/70
--- NOTE | 2021-02-07 14:18 | EKG ---
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 : 1950 Requested By: Juan Miguel Martin Order Number: [id number] MD: Gregory Allen Measurements Intervals [place] Rate: 83 P: 253 NM: 209 QRS: -24 QRSD: 109 T: -7 QT: 395 QTc: 465 Interpretive Statements Sinus or ectopic atrial rhythm with first-degree AV block Atrial premature complex Inferior infarct, old Compared to ECG 11/17/2020 19:52:26 Atrial premature complex(es) now present Myocardial infarct finding still present Electronically Signed On 02-07-2021 14:17:50 CDT by Gregory Allen [email or web address] <ELECTRONICALLY SIGNED> By: Gregory Allen MD, [facility] 02/07/21 1417 4 4 Gregory Allen MD, [facility] /EPI
--- NOTE | 2021-02-07 16:44 | NUR ---
BOARDING PATIENT IN PREOP. PATIENT A&OX4. VSS. EMS REPORTED PAROXIMAL A-FIB IN AMBULANCE, BUT PATIENT NSR SINCE ARRIVING AT HOSPITAL. PATIENT AMBULATES WITH CANE. PATIENT IS DIABETIC. PATIENT HERE FOR BLOODY STOOLS AND POSSIBLE GI BLEED. HAS 20G RAC. PATIENT CAN HAVE CLEAR LIQUIDS UNTIL MIDNIGHT, THEN NPO FOR TESTING. ORDER TO RETRIEVE LAST COL[facility] RECORDS [facility] NOT COMPLETED YET. PATIENT IN BED IN LOWEST LOCKED POSITION. CALL LIGHT IN REACH.
[2021-02-07 17:05] VITALS: BP 129/71
--- NOTE | 2021-02-07 17:32 | NUR ---
PT DID NOT HAVE PAROXIMAL AFIB. CHARTED IN WRONG PLACE.
--- NOTE | 2021-02-07 19:28 | NUR ---
PT ADMITTED TO ROOM 221 VIA CART FROM PACU, AOX4, REPORT RECEIVED FROM PACU NURSE. PT REPORTS BLOODY STOOLS STARTING THIS AM, GI ON BOARD AND BOWEL PREP STARTED. ADMISSION ASSESSMENT AND HX COMPLETED IN PACU, VS CHARTED. PT ORIENTED TO ROOM AND CALL LIGHT. NPO AFTER MIDNIGHT AND CLEAR LIQUIDS RIGHT NOW.
[2021-02-07 19:59] LABS: HEMATOCRIT 30.7 % (42.0-52.0); HEMOGLOBIN 10.4 gm/dL (14.0-18.0)
[2021-02-07 21:10] VITALS: BP 129/71
[2021-02-07] MEDS ORDERED: LANTUS SUBQ (22:52)
[2021-02-08 00:44] VITALS: BP 170/90
--- NOTE | 2021-02-08 03:14 | NUR ---
ASSUMED CARE OF PT AT 1900. PT IS ALERT AND ORIENTED. VSS. PERRLA. NO COMPLAINTS OF PAIN. PT HAS COMPLETED HIS GOLYTLY AND IS NOW NPO FOR COLONOSCOPY IN THE AM. PT IS IN SINUS RYTHMON THE TELEMETRY. PT IS RESTING COMFORTABLY IN BED. RESPIRATIONS ARE EVEN AND NONLABORED. WILL CONTINUE TO MONITOR PT.
[2021-02-08 04:22] VITALS: BP 123/51
[2021-02-08 04:44] LABS: ABSOLUTE BASOPHILS 0.1 thou/uL (0.0-0.2); ABSOLUTE EOSINOPHILS 0.2 thou/uL (0.0-0.7); ABSOLUTE LYMPHOCYTES 1.3 thou/uL (0.8-5.3); ABSOLUTE MONOCYTES 0.5 thou/uL (0.0-1.2); ABSOLUTE NEUTROPHILS 6.1 thou/uL (1.6-8.1); BASOPHILS 0.7 %; EOSINOPHILS 2.2 %; HEMATOCRIT 28.1 % (42.0-52.0); HEMOGLOBIN 9.7 gm/dL (14.0-18.0); LYMPHOCYTES 15.5 %; MCH 30.5 pg (26.0-34.0); MCHC 34.6 g/dL (28.0-37.0); MCV 88.2 fL (80.0-100.0); MONOCYTES 6.4 %; MPV 8.5 fl. (7.2-11.1); NUCLEATED RBCS 0 /100WBC; PLATELET COUNT* 170 thou/uL (150-400); POLYS 75.2 %; RBC 3.18 mil/uL (4.50-6.00); RDW-CV 13.9 % (10.5-14.5); WBC 8.1 thou/uL (4.0-11.0)
[2021-02-08 05:15] LABS: ALBUMIN 3.2 g/dL (3.4-5.0); CALCIUM 8.2 mg/dL (8.5-10.1); POTASSIUM 3.9 mmol/L (3.5-5.1); TOTAL BILIRUBIN 0.4 mg/dL (<0.1-1.0); TOTAL PROTEIN 5.9 g/dL (6.4-8.2)
[2021-02-08 12:00] VITALS: BP 130/72
--- NOTE | 2021-02-08 15:03 | NUR ---
PLAN OF CARE: PHYSICIAN INFORMS THAT THE PT IS NOT MEDICALLY STABLE FOR D/C AT THIS TIME. NO CM D/C PLANNING NEEDS ANTICIPATED AT THIS TIME. CM WILL REMAIN AVAILABLE TO ASSIST AND FOLLOW NEEDED.
[2021-02-08 16:00] VITALS: BP 147/72
--- NOTE | 2021-02-08 18:27 | CON ---
[address] [address] CONSULTATION Name: CINTHYA MILES Hallie Room: [address] IN M.R.#: [id number] Admission: 02/07/21 Attend Phys: Eve Lamas Discharge: Date of : 48 Report #: [id number] THIS REPORT FOR: cc: EFRA JETT MD, CHADWICK MD Vardakis, Gregory DO ~ cc: Efra Jett MD DATE OF CONSULTATION: 02/07/2021 Please note at the time of this dictation, the patient was seen and physically seen by myself in the Emergency Room. HISTORY OF PRESENT ILLNESS: This is a 70-year-old male presenting to the Emergency Room, would be awaken around 2 a.m. with a little bit of abdominal cramping, went to the bathroom and he had an extremely watery, very bright red bloody stool, prompting him to come into the Emergency Room. He states he has been on Effient for several years and he has never had this type of issue before. He states he has been having some bloody noses, but denies any nausea or vomiting. He had just mild abdominal cramping when having a bowel movement and that is somewhat subsided. The patient states he did have a colonoscopy years ago at [facility]; told that he had polyps, but he has not had any further colonoscopy done at that time. He does state he does have hemorrhoids, but he has not had any issues with those either. The patient states his normal bowel habits are he has 3-4 loose stools daily, but never has noticed any bright red blood or any black in his stools since being on the Effient. The patient states his weight and appetite have been unchanged. He denies any issues with acid reflux, but he does have some occasional issues with swallowing off and on, but is not consistent he states. ALLERGIES: MORPHINE AND CODEINE. MEDICATIONS FROM HOME: Include Coreg, Effient, spironolactone, Lasix, and diclofenac topical, metformin, atorvastatin, Thorazine, Paxil, Claritin, insulin, enteric-coated aspirin, and Zestril. PAST MEDICAL HISTORY: History of coronary artery disease. He has had 7 MIs with 7 stents, anxiety, depression, COPD, diabetes, arthritis, morbid obesity, and history of colon polyps. PAST SURGICAL HISTORY: He has had left carpal tunnel, right knee repair, and left knee replacement. FAMILY HISTORY: Father, colon [place] [address] CONSULTATION Name: JDCINTHYA Room: [address] IN [facility].#: [id number] Admission: 02/07/21 Attend Phys: Eve Lamas Discharge: Date of : 48 Report #: [id number] SOCIAL HISTORY: Past use of cigarettes. He does drink alcohol socially. Denies any illegal drug use. REVIEW OF SYSTEMS: A 12-point review of systems is essentially negative except what is mentioned in the HPI. PHYSICAL EXAMINATION: VITAL SIGNS: Temperature 36.1, pulse 76, respirations 18, and blood pressure 103/59. HEART: Regular rate and rhythm. LUNGS: Clear. ABDOMEN: Soft, positive bowel sounds in all 4 quadrants with a periumbilical hernia that is soft and reducible, but tender to touch and some lower abdominal discomfort noted in the pannus. LABORATORY DATA: Hemoglobin on admission was 11.6, he is 10.7; white count is 9.5; platelets 198. PT is 10.5, INR is 1.0, GFR is 46. His LFTs are completely normal. Tagged RBC scan is pending. IMPRESSION: 1. Rectal bleeding. 2. Abdominal pain. 3. Anticoagulant therapy, Effient. History of stents. 4. Family History: Father, colon cancer. 5. He has had some dysphagia inconsistently. 6. Chronic kidney disease. 7. Diabetes. PLAN: 1. Tagged RBC scan pending. 2. If above is negative, the patient will need a colonoscopy tomorrow. 3. Obtain records from [facility] regarding his last colonoscopy attempt. 4. Further monitor his hemoglobin to keep it above 7.5 and transfuse as needed. 5. Further recommendations to be made after the tagged RBC scan has been done. Thank you for allowing us to participate in this patient's care. Please do not hesitate to call with any questions regarding this consult. <ELECTRONICALLY SIGNED> By: Shimon Olmos DO 02/08/21 [id number] Olmos DO /nt
[2021-02-08 20:15] VITALS: BP 131/71
[2021-02-09 04:01] VITALS: BP 129/81
--- NOTE | 2021-02-09 04:57 | NUR ---
PT A&O X 4, VSS ON RA. NO C/O PAIN, N/V. UP INDEPENDENTLY IN ROOM. CALL LIGHT WITHIN REACH. WILL CONTINUE TO MONITOR.
[2021-02-09 05:02] LABS: ABSOLUTE EOSINOPHILS 0.2 thou/uL (0.0-0.7); ABSOLUTE LYMPHOCYTES 1.2 thou/uL (0.8-5.3); ABSOLUTE MONOCYTES 0.4 thou/uL (0.0-1.2); ABSOLUTE NEUTROPHILS 4.6 thou/uL (1.6-8.1); BASOPHILS 0.7 %; EOSINOPHILS 3.1 %; HEMATOCRIT 26.4 % (42.0-52.0); HEMOGLOBIN 9.2 gm/dL (14.0-18.0); MCH 30.9 pg (26.0-34.0); MCV 88.2 fL (80.0-100.0); MONOCYTES 6.2 %; MPV 8.6 fl. (7.2-11.1); NUCLEATED RBCS 0 /100WBC; PLATELET COUNT* 159 thou/uL (150-400); RBC 2.99 mil/uL (4.50-6.00); RDW-CV 14.1 % (10.5-14.5); WBC 6.4 thou/uL (4.0-11.0)
[2021-02-09 05:41] LABS: CALCIUM 8.5 mg/dL (8.5-10.1); POTASSIUM 4.5 mmol/L (3.5-5.1)
[2021-02-09 12:00] VITALS: BP 141/76
[2021-02-09 14:18] VITALS: BP 141/76
--- NOTE | 2021-02-09 14:50 | NUR ---
PHYSICIAN INFORMS OF PLAN FOR THE PT TO D/C HOME TODAY WITH SELF-CARE. NO CM D/C PLANNINF NEEDS ANTICIPATED. CM WILL REMAIN AVAILABLE TO ASSIST AND FOLLOW NEEDED.
== END 2021-02-09 15:08 | disposition home or self-care (01) | DRG 377 ==
LOC: M.ERS 02:56 → M.TBA-ER 04:46 → M.2W 04:46
PROVIDERS: Emergency Medicine; Internal Medicine; Internal Medicine Gastroenterology; ADMIT Internal Medicine; ATTEND Internal Medicine
PROC: 0DJD8ZZ Inspection of Lower Intestinal Tract, Via Natural or Artificial Opening Endoscopic (ICD-10-PCS; principal; 2021-02-08)
PROC: 0DJ08ZZ Inspection of Upper Intestinal Tract, Via Natural or Artificial Opening Endoscopic (ICD-10-PCS; 2021-02-08)
DX: K57.31 Diverticulosis of large intestine without perforation or abscess with bleeding (principal); N17.0 Acute kidney failure with tubular necrosis; I50.42 Chronic combined systolic (congestive) and diastolic (congestive) heart failure; D62 Acute posthemorrhagic anemia; I13.0 Hypertensive heart and chronic kidney disease with heart failure and stage 1 through stage 4 chronic kidney disease, or unspecified chronic kidney disease; Z68.41 Body mass index [BMI] 40.0-44.9, adult; N18.9 Chronic kidney disease, unspecified; E66.01 Morbid (severe) obesity due to excess calories; I95.9 Hypotension, unspecified; I25.10 Atherosclerotic heart disease of native coronary artery without angina pectoris; Z20.822 Contact with and (suspected) exposure to COVID-19; F32.9 Major depressive disorder, single episode, unspecified; M19.90 Unspecified osteoarthritis, unspecified site; J44.9 Chronic obstructive pulmonary disease, unspecified; E11.22 Type 2 diabetes mellitus with diabetic chronic kidney disease; K44.9 Diaphragmatic hernia without obstruction or gangrene; F41.1 Generalized anxiety disorder; K64.4 Residual hemorrhoidal skin tags; E11.65 Type 2 diabetes mellitus with hyperglycemia; R12 Heartburn; Z96.652 Presence of left artificial knee joint; I25.2 Old myocardial infarction; Z82.49 Family history of ischemic heart disease and other diseases of the circulatory system; Z95.5 Presence of coronary angioplasty implant and graft; Z88.6 Allergy status to analgesic agent; Z87.891 Personal history of nicotine dependence; Z86.010 Personal history of colon polyps; Z80.0 Family history of malignant neoplasm of digestive organs; Z79.01 Long term (current) use of anticoagulants; Z79.899 Other long term (current) drug therapy; Z79.82 Long term (current) use of aspirin

== ENCOUNTER 2021-08-02 10:18 | Inpatient (IN) | payer OTHER ==
[~2021-08-02] VITALS: Ht 188 cm; Wt 158.8 kg
[2021-08-02] VITALS (17 sets, daily range): BP systolic 111–154; BP diastolic 60–85
[~2021-08-02 10:18] MED LIST changes: +LANTUS SUBQ
--- NOTE | 2021-08-02 10:34 | NUR ---
SEE CODE STEMI SHEET
--- NOTE | 2021-08-02 10:35 | NUR ---
PER DR. SPEARS, THE PATIENT WILL BE GOING TO [facility] NONEMERGENTLY AROUND NOON.
[2021-08-02 10:46] LABS: ABSOLUTE EOSINOPHILS 0.1 thou/uL (0.0-0.7); ABSOLUTE LYMPHOCYTES 0.9 thou/uL (0.8-5.3); ABSOLUTE NEUTROPHILS 4.8 thou/uL (1.6-8.1); EOSINOPHILS 2.1 %; MCV 84.8 fL (80.0-100.0); PLATELET COUNT* 170 thou/uL (150-400)
[2021-08-02 10:48] LABS: ABSOLUTE MONOCYTES 0.3 thou/uL (0.0-1.2); BASOPHILS 0.5 %; HEMATOCRIT 37.6 % (42.0-52.0); LYMPHOCYTES 14.3 %; MCH 27.1 pg (26.0-34.0); MCHC 31.9 g/dL (28.0-37.0); MONOCYTES 4.2 %; MPV 8.4 fl. (7.2-11.1); NUCLEATED RBCS 0 /100WBC; POLYS 78.9 %; RBC 4.44 mil/uL (4.50-6.00); RDW-CV 16.3 % (10.5-14.5); WBC 6.1 thou/uL (4.0-11.0)
[2021-08-02 10:56] LABS: CALCIUM 8.9 mg/dL (8.5-10.1); CREATININE 1.1 mg/dL (0.6-1.3); POTASSIUM 5.1 mmol/L (3.5-5.1)
[2021-08-02 11:04] LABS: APTT 24.8 Seconds (25.0-31.3); PROTIME 10.3 Seconds (9.20-11.50)
[2021-08-02 11:07] LABS: ALBUMIN 3.2 g/dL (3.4-5.0); MAGNESIUM 1.6 mg/dL (1.8-2.4); TOTAL BILIRUBIN 0.4 mg/dL (<0.1-1.0); TOTAL PROTEIN 6.4 g/dL (6.4-8.2)
--- NOTE | 2021-08-02 12:30 | EKG ---
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 : 1950 Requested By: Federico Arredondo Order Number: [id number] MD: Eliceo Burkett Measurements Intervals [place] Rate: 61 P: 0 [place]: 68 QRS: 19 QRSD: 121 T: 63 QT: 424 QTc: 427 Interpretive Statements Sinus rhythm Short [place] interval Nonspecific intraventricular conduction delay Inferior infarct, old Compared to ECG 02/07/2021 03:05:21 Short [place] interval now present Intraventricular conduction delay now present Ectopic atrial rhythm no longer present Atrial premature complex(es) no longer present Myocardial infarct finding still present Electronically Signed On 08-02-2021 12:30:05 SERVICE PLANNER by Eliceo Burkett [email or web address] <ELECTRONICALLY SIGNED> By: Eliceo Burkett MD, [facility] 08/02/21 1230 1019 1019 Eliceo Burkett MD, [facility] /EPI
--- NOTE | 2021-08-02 14:38 | CON ---
[address] [address] CONSULTATION Name: CINTHYA MILES Room: [place] [address] ADM IN M.Steve.#: [id number] Admission: 08/02/21 Attend Phys: Yair [place] Discharge: Date of : 48 Report #: [id number] THIS REPORT FOR: cc: LINDSEY JETT MD, CHADWICK MD Blick, David R. MD [facility] ~ DATE OF CONSULTATION: 08/02/2021 CARDIOLOGY CONSULTATION HISTORY OF PRESENT ILLNESS: The patient is a 71-year-old white male who I was asked to see in the Emergency Room today after he complained of chest pain. The patient had a total of 8 stents in the past. All placed here at [facility]. He has been followed by my partner, Dr. Rajan. He is not very active because of his large size and uses a cane. He presented to [facility] in 06/2020 with acute coronary syndrome. I performed a cardiac catheterization. This was performed from the right femoral artery. Results showed no restenosis stents in the LAD and circumflex. There was an acute occlusion of the stent in the right coronary artery. I then placed a new drug-eluting stent in the right coronary artery. Ejection fraction is only 25-30%. He has been on Effient since that time. Recently, the patient has been having frequent chest pain. Today after breakfast, he felt a burning in his chest, became short of breath, diaphoretic. He called the ambulance. He was brought to [facility] on an urgent basis. At this time, he continues to have chest discomfort. He has had no recent bleeding, increased shortness of breath, fever, cough. He does note occasional episodes of his heart rate will increase, but has had no syncope. PAST MEDICAL HISTORY: Significant for knee surgery, cataract extraction, diabetes, hypertension and hyperlipidemia. CURRENT MEDICATIONS: Include insulin, lisinopril, carvedilol, Lipitor, aspirin. ALLERGIES: HE HAS PREVIOUS INTOLERANCE TO CODEINE AND MORPHINE. FAMILY HISTORY: Father had heart disease. SOCIAL HISTORY: He is , [place] 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 Quit smoking years ago. No significant alcohol abuse. REVIEW OF SYSTEMS: He is overweight being 350 pounds. No history of stroke. He has sleep apnea, cannot use CPAP. No liver disease, kidney disease, skin cancer removed in the past. No chronic skin condition. No psychiatric illness. PHYSICAL EXAMINATION: GENERAL: Revealed a large obese male, lying in bed, he [place] [address] CONSULTATION Name: CINTHYA MILES Room: [address] IN ..#: [id number] Admission: 08/02/21 Attend Phys: Yair Montana Discharge: Date of : 48 Report #: [id number] VITAL SIGNS: He had a blood pressure 150/80, pulse 60, he was afebrile. HEENT: He was anicteric. Conjunctivae pink. Mucosa moist. NECK: Veins do not appear distended. No carotid bruits. CHEST: Clear to auscultation. HEART: Regular rate and rhythm. ABDOMEN: Obese. EXTREMITIES: Had no pitting edema. SKIN: Cool and dry. NEUROLOGIC: Nonfocal. LABORATORY DATA: ECG: Sinus rhythm, evidence of previous inferior infarction, appears to be no acute ST segment changes compared to previous ECGs. His lab work is pending from today. IMPRESSION AND RECOMMENDATIONS: 1. Acute coronary syndrome. Recommend cardiac catheterization. The patient is on Effient and aspirin. 2. Hypertension. The patient has been on NICKY inhibitor and beta nia. 3. Diabetes. 4. Hyperlipidemia. The patient is on statin drug. 5. Sleep apnea. 6. Cardiomyopathy. 7. Morbid obesity. <ELECTRONICALLY SIGNED> By: Eliceo Burkett MD, FACC 08/02/21 1438 0951 1022Daviyair Burkett MD, FACC /nt
--- NOTE | 2021-08-02 16:41 | CARD ---
[address] [address] CARDIAC CATH REPORT Name: CINTHYA MILES Hallie Room: [address] IN [facility]#: [id number] Admission: 08/02/21 Attend Phys: Yair [place] Discharge: Date of : 48 Report #: [id number] THIS REPORT FOR: cc: LINDSEY JETT MD, CHADWICK MD Blick, David R. MD [facility] ~ APPROVED REPORT Study performed: 08/02/2021 10:27:19 Patient Details Patient Status: In-Patient Room #: The patient is a 71 year-old male Event Personnel Dr Burkett, Trauma Program Manager; Elpidio Villela, OMAIRA; Michelle Sánchez, OMAIRA Monitor; Jillian Borges RTR Scrub Procedures Performed cath pci Indication Abnormal ECG, Unstable angina Risk Factors Obesity, Hypercholesterolemia, Coronary Artery DiseaseHypertension, Diabetes Previous Procedures/Diagnoses Previous PCI, Previous [facility] Admission/Lab Medications/Medications given during procedure Heparin Unfract., 2L Oxygen per nasal cannula; 0.9% Sodium Chloride IV 75ml/hr; Fentanyl 50 mcg; Lidocaine 2% 6 ml; Nitroglycerin IA 400 mcg; Verapamil IA 5 mg; Heparin 9,000 units; Effient 10 mg. Procedure Narrative The patient was brought urgently to the Cardiac Catheterization Laboratory and was prepped and draped in a sterile manner. The right wrist was infiltrated with 2% Lidocaine subcutaneous anesthesia. IV conscious sedation was used throughout procedure with appropriate monitoring and was performed in the presence of a registered nurse who was an independent trained [place] [address] CARDIAC CATH REPORT Name: CINTHYA MILES Room: [address]#: [id number] Admission: 08/02/21 Attend Phys: Yair Montana Discharge: Date of : 48 Report #: [id number] performing the procedure. A 6 Fr Slender [place] sheath was inserted into the right radial artery. Coronary angiography was performed using coronary diagnostic catheters. The right coronary system was accessed and visualized with a Diagnostic 6 Fr JR 4.0 catheter. The left coronary system was accessed and visualized with a Diagnostic 6 Fr JL 4.0 catheter. The left ventricle was accessed and visualized with a Diagnostic 6 Fr Pigtail catheter. Left ventricular/Aortic Valve gradient assessed via catheter pullback. Left ventriculogram was performed in CONN projection. Closure device was deployed with a 6 Fr Vascband. The patient tolerated the procedure well and there were no complications associated with the procedure. There was no hematoma. Intraoperative Conscious Sedation Fentanyl 50.0 mcg No sedation medication was given. Fluoro Time: 8.3 minutes Dose: DAP 412168 cGycm2 2404 mGy Contrast Type and Amount: Visipaque 150 ml Coronary Angiography The patient's coronary anatomy is right dominant. Diagnostic Cath Left Main 0% stenosis LAD stent in the proximal and mid lad had 0% restenosis. apical LAD was a small vessel and had a 70% stenosis Circumflex proximal stent had 0% restenosis OM2 proximal stent had 0% restenosis Right Coronary stents noted in the proximal, mid, and distal RCA. Mid stent had 30% restenosis. Distal stent was 100% occluded with thrombus. Left Ventriculography The left ventricular ejection fraction is estimated to be 25-30%. Left ventricular wall motion abnormalities are present. There is no mitral insufficiency. Severe hypokinesis noted of the inferior and distal anteroapical wall. Hemodynamics The left ventricular end diastolic pressure is 16 mmHg. There was no gradient across the aortic valve upon pullback. Pullback from the left ventricle to the aorta revealed no gradient [place] [address] CARDIAC CATH REPORT Name: CINTHYA MILES Room: [address]#: [id number] Admission: 08/02/21 Attend Phys: Yair Montana Discharge: Date of : 48 Report #: [id number] PCI Technique Lesion Anticoagulation was achieved with Heparin. Patient was preloaded with Heparin 5,000 units. Percutaneous coronary intervention was performed on the distal right coronary artery. The lesion stenosis prior to intervention was 100% with EKN 0 flow. A 6 Fr 3DRC Guide Catheter was used to engage the RCA ostium. A BMW 190cm Interventional Guidewire was used to cross the lesion. BALLOON DILATION A Balloon catheter Trek RX 2.75 x 12 mm was inserted and inflated up to 10atm for 15seconds. Repeat angiography revealed the following post-dilatation results: 40% stenosis. Additional Inflation: 18atm for 15seconds. Additional Inflation: 16atm for 8seconds. STENT DEPLOYMENT A drug-eluting stent [place] RX 3.0 x 15 mm was inserted and inflated up to 12atm for 7seconds. Repeat angiography revealed the following post-stent deployment results: 0% stenosis. Additional Inflation: 15atm for 16seconds. Final angiography reveals 0 % stenosis with KEN 3 flow. Conclusion 1. no restenosis noted of stents in the LAD and circumflex artery. 2. acute occlusion of the stent in the distal RCA. 3. successful placement of a drug eluting stent in the distal RCA. 4. LVEF 25-30% Recommendations Cardiac Rehabilitation Referral [facility] <ELECTRONICALLY SIGNED> By: Eliceo Burkett MD, [facility] 08/02/211640 40 1641Daviyair Burkett MD, FACC /INF
--- NOTE | 2021-08-02 16:43 | EKG ---
[place] [address] ELECTROCARDIOGRAM REPORT Name: CINTHYA MILES Room: [address] ADM IN .R.#: [id number] Admission: 08/02/21 Attend Phys: Jim Obregon Discharge: Date of : 48 Date of Service: 08/02/21 1519 Report #: [id number] THIS REPORT FOR: //name// [facility] Test Date: 2021-08-02 Test Time: 15:19:03 Pat Name: CINTHYA MILES Department: Room: [facility] Gender: M Precision Grinder External: AMANDEEP : 1950 Requested By: Eliceo Burkett Order Number: [id number] Todd MD: Eliceo Burkett Measurements Intervals [place] Rate: 74 P: 39 [place]: 305 QRS: -46 QRSD: 109 T: -5 QT: 413 QTc: 459 Interpretive Statements Sinus rhythm Prolonged [place] interval Inferior infarct, old Compared to ECG 08/02/2021 10:19:19 Myocardial infarct finding still present Electronically Signed On 08-02-2021 16:43:34 COMPUTER SYSTEMS INFORMATION DIRECTOR by Eliceo Burkett [email or web address] <ELECTRONICALLY SIGNED> By: Eliceo Burkett MD, FAC 08/02/21 1643 1519 1519 Eliceo Burkett MD, [facility] /EPI
--- NOTE | 2021-08-02 18:48 | NUR ---
PT ADMITTED TO THE FLOOR AT [facility]15 FROM [facility]. PT IS PLEASANTLY A&OX4, CONVERSATIONAL AND COOPERATIVE. ASSESSMENT COMPLETED AND PT VOICES NO CONCERNS SITE ASSESED AND VITALS MONITORED PER ORDER. MEDICATINS RECONCILED AND STARTED. PT UP AD RAMONE AND VERBALIZES SAFETY MEASURES.
[2021-08-03] VITALS (7 sets, daily range): BP systolic 95–134; BP diastolic 54–72
--- NOTE | 2021-08-03 05:43 | NUR ---
PT IS ABLE TO COMMUNICATE HIS NEEDS TO STAFF EFFECTIVELY. CURRENT PAIN MEDICATION REGIMEN HAS BEEN ADEQUATE FOR CONTROLLING HIS PAIN UP TO THIS TIME. HE HAS DENIED ANY REOCCURANCE OF CHEST PAIN OVERNIGHT UP TO THIS TIME. RIGHT RADIAL CATH SITE DRESSING HAS BEEN C/D/I UP TO THIS TIME WITH NO OBSERVABLE EVIDENCE OF HEMATOMA WELL. LIKELY DISCHARGE TODAY.
--- NOTE | 2021-08-03 10:03 | EKG ---
[place] [address] ELECTROCARDIOGRAM REPORT Name: CINTHYA MILES Room: [address] ADM IN M.R.#: [id number] Admission: 08/02/21 Attend Phys: Jim Obregon Discharge: Date of : 48 Date of Service: 08/03/21 0507 Report #: [id number] THIS REPORT FOR: //name// [facility] Test Date: 2021-08-03 Test Time: 05:07:25 Pat Name: CINTHYA MILES Department: Room: [address] Gender: M Internal Salesperson: CHARLIE : 1950 Requested By: Eliceo Burkett Order Number: [id number] Todd MD: Eliceo Burkett Measurements Intervals [place] Rate: 62 P: 2 SD: 307 QRS: -17 QRSD: 113 T: -11 QT: 448 QTc: 455 Interpretive Statements Sinus rhythm Prolonged [place] interval Inferior infarct, age indeterminate Compared to ECG 08/02/2021 15:19:03 rate has slowed Electronically Signed On 08-03-2021 10:03:45 REMOTE OPERATIONS PRODUCER by Eliceo Burkett [email or web address] <ELECTRONICALLY SIGNED> By: Eliceo Burkett MD, [facility] 08/03/21 1003 0507 0507 Eliceo Burkett MD, [facility] /EPI
[2021-08-03 11:03] LABS: ALBUMIN 3.1 g/dL (3.4-5.0); CALCIUM 8.5 mg/dL (8.5-10.1); CREATININE 1.2 mg/dL (0.6-1.3); POTASSIUM 4.6 mmol/L (3.5-5.1); TOTAL BILIRUBIN 0.4 mg/dL (<0.1-1.0); TOTAL PROTEIN 6.2 g/dL (6.4-8.2)
[2021-08-03 11:08] LABS: ABSOLUTE EOSINOPHILS 0.1 thou/uL (0.0-0.7); ABSOLUTE LYMPHOCYTES 1.1 thou/uL (0.8-5.3); ABSOLUTE MONOCYTES 0.3 thou/uL (0.0-1.2); ABSOLUTE NEUTROPHILS 4.7 thou/uL (1.6-8.1); BASOPHILS 0.8 %; EOSINOPHILS 1.6 %; HEMATOCRIT 35.4 % (42.0-52.0); HEMOGLOBIN 11.4 gm/dL (14.0-18.0); LYMPHOCYTES 17.2 %; MCH 27.4 pg (26.0-34.0); MCHC 32.4 g/dL (28.0-37.0); MCV 84.8 fL (80.0-100.0); MONOCYTES 5.4 %; MPV 8.6 fl. (7.2-11.1); NUCLEATED RBCS 0 /100WBC; PLATELET COUNT* 158 thou/uL (150-400); RBC 4.17 mil/uL (4.50-6.00); RDW-CV 15.9 % (10.5-14.5); WBC 6.3 thou/uL (4.0-11.0)
[2021-08-03 11:33] LABS: ANION GAP 7 mmol/L (7-16); BUN 19 mg/dL (7-18); CALCIUM 8.7 mg/dL (8.5-10.1); CHLORIDE 106 mmol/L (98-107); CHOLESTEROL 101 mg/dL (<200); CO2 27 mmol/L (21-32); CREATININE 1.2 mg/dL (0.6-1.3); GLUCOSE 255 mg/dL (70-99); HDL CHOLESTEROL 47 mg/dL (>40); LDL CHOLESTEROL 31 mg/dL (<100); POTASSIUM 4.6 mmol/L (3.5-5.1); SODIUM 140 mmol/L (136-145); TC:HDL 2.1 Ratio (Not establshd); TRIGLYCERIDE 118 mg/dL (<150); VLDL 24 mg/dL (<40)
[2021-08-03 11:46] LABS: SERUM ASSESSMENT CLEAR
--- NOTE | 2021-08-03 14:13 | 2DMMODE ---
[place] [address] 2 D/M-MODE ECHOCARDIOGRAM Name: JDCINTHYA Room: [address] IN .R.#: [id number] Admission: 08/02/21 Attend Phys: Jim Obregon Discharge: Date of : 48 Date of Service: 08/03/21 1413 Report #: [id number] THIS REPORT FOR: cc: LINDSEY JETT MD, CHADWICK MD Blick, David R. MD [facility] ~ APPROVED REPORT Study performed: 08/03/2021 11:08:16 EXAM: Comprehensive 2D, Doppler, and color-flow Echocardiogram Patient Location: In-Patient Room #: [facility] Status: routine BSA: 2.76 HR: 69 bpm BP: 126/70 mmHg Rhythm: NSR Other Information Study Quality: Fair Indications Acute MN 2D Dimensions IVSd: 15.37 (7-11mm) LVOT Diam: 23.25 (18-24mm) LVDd: 58.56 mm PWd: 11.51 (7-11mm) Ascending Ao: 36.22 (22-36mm) LVDs: 47.11 (25-40mm) Aortic Root: 38.92 mm Volumes Left Atrial Volume (Systole) LA ESV Index: 34.70 mL/m2 Aortic Valve AoV Peak Nigel.: 1.38 m/s AO Peak Gr.: 7.56 mmHg LVOT Max P.32 mmHg AO Mean Gr.: 4.12 mmHg LVOT Mean P.01 mmHg LVOT Max V: 1.04 m/s AO V2 VTI: 25.87 cm LVOT Mean V: 0.65 m/s SRIKANTH (VTI): 3.30 cm2 LVOT V1 VTI: 20.12 [place] [address] 2 D/M-MODE ECHOCARDIOGRAM Name: CINTHYA MILES Room: [address] IN .R.#: [id number] Admission: 08/02/21 Attend Phys: Jim Obregon Discharge: Date of : 48 Date of Service: 08/03/21 1413 Report #: [id number] Mitral Valve E/A Ratio: 0.57 MV Decel. Time: 232.06 ms MV E Max Nigel.: 0.55 m/s MV PHT: 67.30 ms MVA (PHT): 3.27 cm2 TDI E/Lateral E': 6.11 E/Medial E': 5.50 Medial E' Nigel.: 0.10 m/s Lateral E' Nigel.: 0.09 m/s Pulmonary Valve PV Peak Nigel.: 1.06 m/s PV Peak Gr.: 4.52 mmHg Tricuspid Valve RAP Estimate: 5.00 mmHg TR Peak Gr.: 35.57 mmHg RVSP: 41.00 mmHg PA Pressure: 41.00 mmHg Left Ventricle The left ventricle is normal size. severe inferior hypokinesis Mild concentric left ventricular hypertrophy. Left ventricular systolic function is moderately decreased. LVEF is 30-35%. Grade I - abnormal relaxation pattern. Right Ventricle The right ventricle is normal size. The right ventricular systolic function is normal. Atria Left atrium is mildly dilated. The right atrium size is normal. Aortic Valve The aortic valve is normal in structure. No aortic regurgitation is present. There is no aortic valvular stenosis. Mitral Valve The mitral valve is normal in structure. Mild mitral regurgitation. No evidence of mitral valve stenosis. Tricuspid Valve The tricuspid valve is normal in structure. Mild tricuspid regurgitation. estimated pa pressure 40 [place] [address] 2 D/M-MODE ECHOCARDIOGRAM Name: CINTHYA MILES Hallie Room: [address] IN [facility]#: [id number] Admission: 08/02/21 Attend Phys: Jim Obregon Discharge: Date of : 48 Date of Service: 08/03/21 1413 Report #: [id number] Pulmonic Valve Pulmonic valve is not well visualized. Mild pulmonic regurgitation. Great Vessels The aortic root is normal in size. IVC is normal in size and collapses >50% with inspiration. Pericardium There is no pericardial effusion. <Conclusion> Mild concentric left ventricular hypertrophy. LVEF is 30-35%. severe inferior hypokinesis Left atrium is mildly dilated. Mild mitral regurgitation. Mild tricuspid regurgitation. estimated pa pressure 40 mm Hg <ELECTRONICALLY SIGNED> By: Eliceo Burkett MD, FACC 08/03/21 1413 1413 141 Eliceo Burkett MD, FACC /INF
--- NOTE | 2021-08-03 15:59 | NUR ---
CM ASSESSMENT: PT A&O, INDEPENDENT WITH ADL'S, AND CONTINUES TO DRIVE. PT RESIDES AT HOME AND HIS GRANDDAUGHTER LIVES WITH HIM. PT OWNS A CANE, BUT INFORMS THAT HE DOES NOT USE IT FOR MOBILITY. PT USES HOME O2 PROVIDED BY ELLIE. PT HAS PAST HX OF HH, BUT INFORMS THAT HE 'WILL NVER USE HH AGAIN, BECAUSE IT IS USELESS'. NO CM D/C PLANNING NEEDS ANTICIAPATED. CM WILL REMAIN AVAILABLE TO ASSIST AND FOLLOW NEEDED.
[2021-08-04] VITALS: BP 120/68
[2021-08-04 04:00] VITALS: BP 107/65
[2021-08-04 08:00] VITALS: BP 113/56
[2021-08-04 08:24] LABS: ABSOLUTE EOSINOPHILS 0.2 thou/uL (0.0-0.7); ABSOLUTE MONOCYTES 0.4 thou/uL (0.0-1.2); ABSOLUTE NEUTROPHILS 5.8 thou/uL (1.6-8.1); BASOPHILS 0.6 %; EOSINOPHILS 2.1 %; HEMATOCRIT 35.4 % (42.0-52.0); HEMOGLOBIN 11.2 gm/dL (14.0-18.0); LYMPHOCYTES 13.5 %; MCHC 31.7 g/dL (28.0-37.0); MCV 85.1 fL (80.0-100.0); MONOCYTES 5.7 %; MPV 8.6 fl. (7.2-11.1); NUCLEATED RBCS 0 /100WBC; PLATELET COUNT* 159 thou/uL (150-400); POLYS 78.1 %; RBC 4.16 mil/uL (4.50-6.00); RDW-CV 15.9 % (10.5-14.5); WBC 7.5 thou/uL (4.0-11.0)
[2021-08-04 08:57] LABS: CALCIUM 8.4 mg/dL (8.5-10.1); CREATININE 1.1 mg/dL (0.6-1.3); POTASSIUM 4.4 mmol/L (3.5-5.1); TOTAL BILIRUBIN 0.5 mg/dL (<0.1-1.0); TOTAL PROTEIN 6.1 g/dL (6.4-8.2)
[2021-08-04 11:45] VITALS: BP 103/67
[2021-08-04] MEDS ORDERED: IMDUR 60 MG TAB60 M1 PO (15:54)
[2021-08-04 16:49] VITALS: BP 103/67
[2021-08-04 17:01] VITALS: BP 103/67
== END 2021-08-04 17:51 | disposition home or self-care (01) | DRG 246 ==
LOC: M.ERS 10:18 → M.TBA-ER 10:43 → M.2W 10:43
PROVIDERS: Emergency Medicine Emergency Medical Services; Internal Medicine Cardiovascular Disease; ADMIT Internal Medicine; ATTEND Internal Medicine
PROC: 027034Z Dilation of Coronary Artery, One Artery with Drug-eluting Intraluminal Device, Percutaneous Approach (ICD-10-PCS; principal; 2021-08-02)
PROC: B211YZZ Fluoroscopy of Multiple Coronary Arteries using Other Contrast (ICD-10-PCS; principal; 2021-08-02)
PROC: 4A023N7 Measurement of Cardiac Sampling and Pressure, Left Heart, Percutaneous Approach (ICD-10-PCS; principal; 2021-08-02)
PROC: B215YZZ Fluoroscopy of Left Heart using Other Contrast (ICD-10-PCS; principal; 2021-08-02)
DX: I21.4 Non-ST elevation (NSTEMI) myocardial infarction (principal); I50.43 Acute on chronic combined systolic (congestive) and diastolic (congestive) heart failure; J44.1 Chronic obstructive pulmonary disease with (acute) exacerbation; I42.9 Cardiomyopathy, unspecified; I47.2 Ventricular tachycardia; Z68.41 Body mass index [BMI] 40.0-44.9, adult; M19.90 Unspecified osteoarthritis, unspecified site; I25.10 Atherosclerotic heart disease of native coronary artery without angina pectoris; E66.01 Morbid (severe) obesity due to excess calories; F41.1 Generalized anxiety disorder; F32.9 Major depressive disorder, single episode, unspecified; I24.9 Acute ischemic heart disease, unspecified; E11.40 Type 2 diabetes mellitus with diabetic neuropathy, unspecified; Z96.653 Presence of artificial knee joint, bilateral; E83.42 Hypomagnesemia; G47.33 Obstructive sleep apnea (adult) (pediatric); Z20.822 Contact with and (suspected) exposure to COVID-19; I25.2 Old myocardial infarction; Z88.6 Allergy status to analgesic agent; Z87.891 Personal history of nicotine dependence; Z82.49 Family history of ischemic heart disease and other diseases of the circulatory system; Z98.42 Cataract extraction status, left eye; Z98.41 Cataract extraction status, right eye

== ENCOUNTER → 2021-08-10 | Outpatient (CLI) | payer OTHER | LOC: M.RAD 09:14 | PROVIDERS: ATTEND Nurse Practitioner | DX: I25.5 Ischemic cardiomyopathy (principal) ==

== ENCOUNTER 2021-08-21 10:24 | Emergency (ER) | payer OTHER ==
[~2021-08-21] VITALS: Ht 188 cm; Wt 158.8 kg
--- NOTE | ~2021-08-21 | EMS ---
[address] [address] EMS Patient Care Report Name: [facility]IN[facility] MILES [id number] Admission: 08/21/21 Attend Phys: Discharge: 08/21/21 Date of : 48 Report #: [id number] THIS REPORT FOR: //name// Report Transmitted: 08/21/2021 20:[address] [facility] Incident [id number] @ 08/21/2021 09:36 Incident Location [address] [place], [place] [id number] Patient CINTHYA MILES Male, 71 Years 1950 Patient Address [address] [place], [place] [id number] Patient History Presence of coronary angioplasty implant and graft,Chronic Obstructive Pulmonary Disease (COPD),Obesity, unspecified,Endocrine Condition - Other,Myocardial Infarction ([place]),Congestive Heart Failure (CHF),Anxiety disorder, unspecified,Bronchitis, not specified as acute or chronic,Malignant melanoma of skin, unspecified,Cardiac Condition - Other,Other venous embolism and thrombosis,Edema,Gastro-Esophageal Reflux Disease (GERD),Presence of artificial knee joint,Unspecified abdominal hernia,,Hyperlipidemia,Hypertension (HTN),Sleep Apnea, Patient Allergies , Patient Medications Metformin, Carvedilol, Aspirin, Chief Complaint Chest Pain Disposition Transported No Lights/[place] Dispatch Reason Chest Pain (Non-Traumatic) Transported To [address] [address] EMS Patient Care Report Name: CINTHYA MILES Room: [facility]#: [id number] Admission: 08/21/21 Attend Phys: Discharge: 08/21/21 Date of : 48 Report #: [id number] [facility] Narrative 321 DISPATCHED EMERGENT TO RESIDENCE FOR CHEST PAIN AND SHORTNESS OF BREATH. 321 ARRIVED ON SCENE WITHOUT INCIDENT. UPON ARRIVAL ON SCENE, PT WAS FOUND SITTING IN THE FRONT ROOM IN A RECLINER. FIRE IS AT PT SIDE AND REPORTS STABLE VITALS. PT REPORTS HE IS HAVING CHEST PAIN AND HAS LABORED BREATHING. PT IS WEARING A NRB MASK THAT WAS APPLIED BY FIRE DUE TO HIS DYSPNEA. FIRE REPORTS HIS ROOM AIR SATURATION WAS 94%. PT STATED HE HAD A HEART ATTACK THREE WEEKS AGO AND RECEIVED HIS NINTH STENT AT THAT TIME. HE STATES HE FEELS THE SAME WAY HIS LAST HEART ATTACK. PT STATED HE DID NOT TAKE ANY ASA YET, SO EMS ADMINISTERED PER PROTOCOL. A 12 LEAD WAS COMPLETED AND DETERMINED TO BE NORMAL SINUS RHYTHM WITH NO APPARENT ECTOPY. PT WAS ADVISED THAT TRANSPORT WAS STILL NECESSARY DUE TO HIS HISTORY. PT STATES HE WANTS TO GO TO [facility], HIS USUAL HOSPITAL. PT STATES HE FEELS LIKE HIS BREATHING IS BETTER FROM THE OXYGEN AND REQUESTS TO WALK OUT TO THE COT, JUST OUTSIDE THE DOOR. PT SITS DOWN ON THE COT AND IS SECURED VIA SEATBELTS AND SIDERAILS. PT IS WHEELED TO THE AMBULANCE AND LOADED WITHOUT INCIDENT. ONCE IN THE AMBULANCE, TREATMENTS AND INTERVENTIONS ARE EXECUTED. EMS ATTEMPTS TO GAIN MORE KNOWLEDGE OF THE PT'S MEDICAL HISTORY, BUT PT WAS NOT A GREAT HISTORIAN. HE WAS UNSURE OF HIS MEDICATIONS AND STATED HE DID NOT TAKE THEM ALL THE TIME. PT WAS VERY NONCHALANT ABOUT THE SEVERITY OF HIS HEALTH. PT REPORTED HIS BLOOD SUGAR YESTERDAY WAS HIGH WELL AND HAD BEEN HIGH FOR SOME TIME. HE ALSO REPORTS HE WAS JUST DIAGNOSED WITH BRONCHITIS. TRANSPORT BEAGN AT THIS TIME. PT CONTINUES TO REPORT IMPROVEMENT IN HIS BREATHING WITH THE OXYGEN. HE STATES HE FEELS LIKE HE IS STILL BREATHING SLIGHTLY FAST, BUT OTHERWISE NORMAL. PT REPORTS HIS CHEST PAIN HAS DECREASED WELL. PT DENIES HAVING A HISTORY OF ANGINA. PT DENIES ANY OTHER SYMPTOMS AND RADIATION OF PAIN. PT'S VITALS ARE MONITORED THROUGHOUT TRANSPORT AND REMAIN STABLE. PT'S CONDITION IMPROVED IN EMS CARE. UPON ARRIVAL AT THE HOSPITAL, PT IS UNLOADED FROM THE AMBULANCE AND WHEELED INTO THE ER ROOM. PT STANDS FROM THE COT AND WALKS TO THE BED. PT REPORT IS GIVEN TO RN WHO SIGNS ACCEPTING PT. TRANSFER OF CARE OFFICIAL AT THIS TIME. Initial Vitals @09:44Pain: 02/20, @10:17Pain: 10/21, @09:55SpO2: 98, @09:55SpO2: 98, @09:57SpO2: 98, @09:58SpO2: 96, @10:00SpO2: 98, @10:05SpO2: 97, @10:09SpO2: 95, @10:12SpO2: 96, @10:13SpO2: 96, @10:17SpO2: 97, [place] [address] EMS Patient Care Report Name: CINTHYA MILES Room: [facility] Emma#: [id number] Admission: 08/21/21 Attend Phys: Discharge: 08/21/21 Date of : 48 Report #: [id number] @10:20SpO2: 96, @09:47 @09:48 @09:57 @09:58 @10:05Temp: 96.98F, @09:58P: 87,R: 24,BP: 156/89, @10:09P: 80,R: 22,BP: 169/147, @10:13P: 82,R: 22,BP: 156/92, @10:20P: 88,R: 20,BP: 120/79, @09:58GCS: 15, @10:09GCS: 15, @10:13GCS: 15, @10:20GCS: 15, @09:44 @10:04Glucose: 532, Assessments @09:44MENTAL:SKIN:HEENT:LUNG SOUNDS:ABDOMEN:PELVIS//GI:EXTREMITIES:PULSE:NEURO: Impression Angina pectoris Procedures @PTAOxygen Complications: , Response: Improved @09:46 Aspirin - 324.000 Milligrams (mg) - Oral Response: Unchanged @09:57 IV Therapy - cc () Site: Forearm-Left Response: UnchangedSucceeded @09:57 Blood Draw - cc () Response: UnchangedSucceeded @09:47 12-Lead ECG Response: UnchangedSucceeded @09:48 12-Lead ECG Response: UnchangedSucceeded @09:57 3-Lead ECG Response: UnchangedSucceeded @09:58 12-Lead ECG Response: UnchangedSucceeded Timeline HELPER DRIVER,Oxygen Complications: ,,Response: Improved 09:25,Call Received 09:35,Dispatch Notified 09:35,Psap Call 09:36,Dispatched 09:36,En Route 09:43,On Scene 09:44,At Patient 09:44,BP: / M,PULSE: ,RR: R,SPO2: Ox,ETCO2: ,BG: ,PAIN: 8,GCS: , 09:44,BP: / M,PULSE: ,RR: R,SPO2: Ox,ETCO2: ,BG: ,PAIN: ,GCS: , [place] [address] EMS Patient Care Report Name: CINTHYA MILES Room: [facility]#: [id number] Admission: 08/21/21 Attend Phys: Discharge: 08/21/21 Date of : 48 Report #: [id number] 09:46,Aspirin - 324.000 Milligrams (mg) - Oral,Response: Unchanged 09:47,12-Lead ECG,Response: UnchangedSucceeded, 09:47,BP: / M,PULSE: ,RR: R,SPO2: Ox,ETCO2: ,BG: ,PAIN: ,GCS: , 09:48,12-Lead ECG,Response: UnchangedSucceeded, 09:48,BP: / M,PULSE: ,RR: R,SPO2: Ox,ETCO2: ,BG: ,PAIN: ,GCS: , 09:55,BP: / M,PULSE: ,RR: R,SPO2: 98 Ox,ETCO2: ,BG: ,PAIN: ,GCS: , 09:55,BP: / M,PULSE: ,RR: R,SPO2: 98 Ox,ETCO2: ,BG: ,PAIN: ,GCS: , 09:57,IV Therapy - cc Site: Forearm-Left,Response: UnchangedSucceeded, 09:57,Blood Draw - cc Site: ,Response: UnchangedSucceeded, 09:57,3-Lead ECG,Response: UnchangedSucceeded, 09:57,BP: / M,PULSE: ,RR: R,SPO2: 98 Ox,ETCO2: ,BG: ,PAIN: ,GCS: , 09:57,BP: / M,PULSE: ,RR: R,SPO2: Ox,ETCO2: ,BG: ,PAIN: ,GCS: , 09:58,12-Lead ECG,Response: UnchangedSucceeded, 09:58,BP: / M,PULSE: ,RR: R,SPO2: 96 Ox,ETCO2: ,BG: ,PAIN: ,GCS: , 09:58,BP: / M,PULSE: ,RR: R,SPO2: Ox,ETCO2: ,BG: ,PAIN: ,GCS: , 09:58,BP: 156/89 M,PULSE: 87,RR: 24 R,SPO2: Ox,ETCO2: ,BG: ,PAIN: ,GCS: , 09:58,BP: / M,PULSE: ,RR: R,SPO2: Ox,ETCO2: ,BG: ,PAIN: ,GCS: 15, 10:00,BP: / M,PULSE: ,RR: R,SPO2: 98 Ox,ETCO2: ,BG: ,PAIN: ,GCS: , 10:04,BP: / M,PULSE: ,RR: R,SPO2: Ox,ETCO2: ,B,PAIN: ,GCS: , 10:05,BP: / M,PULSE: ,RR: R,SPO2: 97 Ox,ETCO2: ,BG: ,PAIN: ,GCS: , 10:05,Depart Scene 10:05,BP: / M,PULSE: ,RR: R,SPO2: Ox,ETCO2: ,BG: ,PAIN: ,GCS: , 10:09,BP: / M,PULSE: ,RR: R,SPO2: 95 Ox,ETCO2: ,BG: ,PAIN: ,GCS: , 10:09,BP: 169/147 M,PULSE: 80,RR: 22 R,SPO2: Ox,ETCO2: ,BG: ,PAIN: ,GCS: , 10:09,BP: / M,PULSE: ,RR: R,SPO2: Ox,ETCO2: ,BG: ,PAIN: ,GCS: 15, 10:12,BP: / M,PULSE: ,RR: R,SPO2: 96 Ox,ETCO2: ,BG: ,PAIN: ,GCS: , 10:13,BP: / M,PULSE: ,RR: R,SPO2: 96 Ox,ETCO2: ,BG: ,PAIN: ,GCS: , 10:13,BP: 156/92 M,PULSE: 82,RR: 22 R,SPO2: Ox,ETCO2: ,BG: ,PAIN: ,GCS: , 10:13,BP: / M,PULSE: ,RR: R,SPO2: Ox,ETCO2: ,BG: ,PAIN: ,GCS: 15, 10:17,BP: / M,PULSE: ,RR: R,SPO2: Ox,ETCO2: ,BG: ,PAIN: 4,GCS: , 10:17,BP: / M,PULSE: ,RR: R,SPO2: 97 Ox,ETCO2: ,BG: ,PAIN: ,GCS: , 10:20,BP: / M,PULSE: ,RR: R,SPO2: 96 Ox,ETCO2: ,BG: ,PAIN: ,GCS: , 10:20,BP: 120/79 M,PULSE: 88,RR: 20 R,SPO2: Ox,ETCO2: ,BG: ,PAIN: ,GCS: , 10:20,BP: / M,PULSE: ,RR: R,SPO2: Ox,ETCO2: ,BG: ,PAIN: ,GCS: 15, 10:21,At Destination 10:36,Call Closed Disclaimer v1.1 Copyright 2021 [employer] This EMS Care Summary contains data elements from the applicable legal record (which may be displayed differently). It is designed to provide pertinent information for the following purposes: continuity of care, clinical quality, and state data reporting. The complete legal record is available to ED staff and administrators of the receiving hospital in [employer]'s Patient Tracker. All data is provided "as is."
[2021-08-21 10:36] LABS: HEMATOCRIT 36.4 % (42.0-52.0); HEMOGLOBIN 11.7 gm/dL (14.0-18.0); MCH 27.1 pg (26.0-34.0); MCV 84.5 fL (80.0-100.0); MPV 8.6 fl. (7.2-11.1); NUCLEATED RBCS 0 /100WBC; PLATELET COUNT* 203 thou/uL (150-400); RBC 4.31 mil/uL (4.50-6.00); RDW-CV 15.5 % (10.5-14.5); WBC 14.3 thou/uL (4.0-11.0)
[2021-08-21 11:09] LABS: CALCIUM 8.7 mg/dL (8.5-10.1); CREATININE 1.6 mg/dL (0.6-1.3); POTASSIUM 4.6 mmol/L (3.5-5.1)
[2021-08-21 11:20] LABS: ALBUMIN 3.4 g/dL (3.4-5.0); MAGNESIUM 1.6 mg/dL (1.8-2.4); TOTAL BILIRUBIN 0.3 mg/dL (<0.1-1.0); TOTAL PROTEIN 6.8 g/dL (6.4-8.2)
--- NOTE | 2021-08-21 11:26 | EKG ---
[place] [address] ELECTROCARDIOGRAM REPORT Name: CINTHYA MILES Room: [facility]#: [id number] Admission: 08/21/21 Attend Phys: Discharge: Date of : 48 Date of Service: 08/21/21 1028 Report #: [id number] THIS REPORT FOR: //name// [facility] ED Test Date: 2021-08-21 Test Time: 10:28:35 Pat Name: CINTHYA MILES Department: Room: Gender: Configuration Management Manager: : 1950 Requested By: Kelly Meza Order Number: [id number] MD: Gregory Allen Measurements Intervals [place] Rate: 86 P: 77 [place]: 295 QRS: -29 QRSD: 108 T: 30 QT: 370 QTc: 443 Interpretive Statements Sinus rhythm Prolonged [place] interval Inferior infarct, old Compared to ECG 08/03/2021 05:07:25 No significant changes Electronically Signed On 08-21-2021 11:26:05 DAIRY EQUIPMENT INSTALLER by Gregory Allen [email or web address] <ELECTRONICALLY SIGNED> By: Gregory Allen MD, [facility] 08/21/21 1126 1028 1028 Gregory Allen MD, [facility] /EPI
[2021-08-21 11:33] LABS: ABSOLUTE MONOCYTES 0.1 thou/uL (0.0-1.2); ABSOLUTE NEUTROPHILS 13.2 thou/uL (1.6-8.1); PLATELET ESTIMATE ADEQUATE
[2021-08-21 13:03] VITALS: BP 113/62
== END 2021-08-21 13:12 | disposition home or self-care (01) ==
LOC: M.ERS 10:24
PROVIDERS: Student in an Organized Health Care Education/Training Program
DX: R07.89 Other chest pain (principal); Z20.822 Contact with and (suspected) exposure to COVID-19; I25.10 Atherosclerotic heart disease of native coronary artery without angina pectoris; I25.5 Ischemic cardiomyopathy; J44.9 Chronic obstructive pulmonary disease, unspecified; E78.5 Hyperlipidemia, unspecified; I48.0 Paroxysmal atrial fibrillation; E11.65 Type 2 diabetes mellitus with hyperglycemia; I11.0 Hypertensive heart disease with heart failure; I50.22 Chronic systolic (congestive) heart failure; E66.01 Morbid (severe) obesity due to excess calories; I25.2 Old myocardial infarction; M19.90 Unspecified osteoarthritis, unspecified site; F41.9 Anxiety disorder, unspecified; F32.9 Major depressive disorder, single episode, unspecified; E11.40 Type 2 diabetes mellitus with diabetic neuropathy, unspecified; Z96.653 Presence of artificial knee joint, bilateral; Z98.890 Other specified postprocedural states; Z79.899 Other long term (current) drug therapy; Z79.4 Long term (current) use of insulin; Z79.82 Long term (current) use of aspirin; Z88.5 Allergy status to narcotic agent; Z87.891 Personal history of nicotine dependence; Z95.5 Presence of coronary angioplasty implant and graft